=== PATIENT | male | born 1945 | race Caucasian/White ===

== ENCOUNTER → 2016-06-16 | Outpatient (CLI) | payer OTHER ==
[~2016-06-16] MED LIST: ACET325T96 PO; AMOX875T PO; ATOR-54 PO; CEPH500C2 PO; CLX/20 PO; CMD4 PO; ENOX40IN SQ; GLIM1TAB2 PO; HYDR12.55 PO; HYDR25TA4 PO; HYDR25TA5 PO; LEVO100T PO; LEVO112T2 PO; LEVO125T72 PO; LISI40TA PO; LPT/40 PO; LSN40 PO; METF-384 PO; NRV/10 PO; OXYC-57 PO; PRED20TA PO; SIMV-151 PO; TAMS0.4C38 PO; VALA1TAB2 PO; WARF2TAB8 PO
== END | disposition home or self-care (01) ==
LOC: C.LAB 11:29
PROVIDERS: ATTEND Internal Medicine Geriatric Medicine
DX: E03.9 Hypothyroidism, unspecified (principal); Z51.81 Encounter for therapeutic drug level monitoring; Z79.01 Long term (current) use of anticoagulants; I26.99 Other pulmonary embolism without acute cor pulmonale; I82.402 Acute embolism and thrombosis of unspecified deep veins of left lower extremity

== ENCOUNTER → 2016-08-13 | Outpatient (CLI) | payer OTHER ==
[~2016-08-13] MED LIST changes: -ATOR-54 PO; -ENOX40IN SQ; -GLIM1TAB2 PO; -HYDR25TA4 PO; -LEVO100T PO; -LEVO112T2 PO; -OXYC-57 PO; -PRED20TA PO; -SIMV-151 PO; -VALA1TAB2 PO
[2016-08-13 15:46] LABS: BASO % 0.5 %; BASO ABS # 0.02 K/uL (0-0.2); COMPLETE YES; EOS % 4.1 %; LYMPH % 33.3 %; LYMPH ABS # 1.46 K/uL (1.2-3.4); MEAN CELL VOLUME 80.4 fL (80-100); MEAN CORPUSCULAR HEMOGLOBIN 28.5 pg (25-34); MEAN CORPUSCULAR HGB CONC 35.4 g/dl (32-36); MEAN PLATELET VOLUME 10.8 fL (7.4-10.4); MONO % 10.3 %; NEUT % 51.8 %; PLATELET COUNT 131 K/uL (130-400); RED BLOOD COUNT 4.85 M/uL (4.7-6.1); WHITE BLOOD COUNT 4.39 K/uL (4.8-10.8)
[2016-08-13 16:04] LABS: ALB/GLOB RATIO 1.3 (0.9-2); ALT/SGPT 22 U/L (12-78); AST/SGOT 13 U/L (15-37); BLOOD UREA NITROGEN 14 mg/dl (7-18); CALCIUM 8.5 mg/dl (8.5-10.1); CARBON DIOXIDE 30 mmol/L (21-32); CHLORIDE 105 mmol/L (98-107); GLUCOSE 189 mg/dl (70-99); SODIUM 143 mmol/L (136-145)
[2016-08-13 16:15] LABS: ALKALINE PHOSPHATASE 80 U/L (45-117); CHOLESTEROL 111 mg/dl (0-200); CHOLESTEROL/HDL RATIO 3.6; HDL CHOLESTEROL 31 mg/dl; LDL CHOLESTEROL CALCULATED 29 mg/dl; TRIGLYCERIDES 254 mg/dl (0-150); VERY LOW DENSITY LIPOPROT CALC 51 mg/dl
[2016-08-14 06:06] LABS: ESTIMATED AVERAGE GLUCOSE 157 mg/dl; HA1C FLAG Normal (Normal)
--- NOTE | 2016-08-19 14:13 | CODING QUERY MEDICAL NECESSITY ---
SUPPORTING DIAGNOSIS NEEDED A supporting diagnosis is required for the test/procedure performed on this patient in order for us to be reimbursed by the patient's insurance. Please provide a supporting diagnosis for the following test/procedure listed below next to the test name along with your signature. *If there is no additional diagnosis for this patient that would support the following test/procedure please document that below next to the test/procedure. Test(s)/Procedure(s) that require a supporting diagnosis: * GLYCATED HEMOGLOBIN DIAGNOSIS: * DOS: 08/13/16 Provider Signature: Date: Thank you Keshia Ramirez Health Information Management Once completed, please kindly fax back to [phone] For questions please call [phone]
== END | disposition home or self-care (01) ==
LOC: C.LAB 14:17
PROVIDERS: ATTEND Internal Medicine Geriatric Medicine
DX: I10 Essential (primary) hypertension (principal); E78.5 Hyperlipidemia, unspecified; E03.9 Hypothyroidism, unspecified; D46.9 Myelodysplastic syndrome, unspecified; Z79.01 Long term (current) use of anticoagulants; E11.9 Type 2 diabetes mellitus without complications

== ENCOUNTER 2016-10-06 22:36 | Inpatient (IN) | payer OTHER ==
[~2016-10-06] VITALS: Ht 172.7 cm; Wt 109.0 kg
[~2016-10-06 22:36] MED LIST changes: -AMOX875T PO; -CEPH500C2 PO; -HYDR25TA5 PO; -LISI40TA PO; -TAMS0.4C38 PO
[2016-10-06] MEDS ORDERED: ACETAMINOPHEN 500 MG TAB PO STA (22:56)
--- NOTE | 2016-10-06 22:57 | EMERGENCY ROOM VISIT NOTE ---
History Report prepared by Nicky: Calos Carroll Under the Supervision of: Dr. Shayan Herrera D.O. First contact with patient: 22:49 Chief Complaint: BACK PAIN Stated Complaint: SEVERE BACK PAIN, CHILLS, VOMITING, UNSTEADY History of Present Illness The patient is a 70 year old male who presents to the Emergency Room with complaints of lower back pain that began this evening. He rates his pain a 5/10 in severity. He came home from the ball game at this time when he began to shake. He then started to experience lower back pain that was radiating down his bilateral legs. He had four episodes of emesis with multiple episodes of diarrhea. He is also experiencing chills and a fever. He denies any abdominal pain or abnormal urinary symptoms. His blood sugar is 185. He has never had any infections or pneumonia in the past. He denies any sick contacts as well. Source of History: patient Onset: this evening Position: back (lower) Symptom Intensity: 5/10 Quality: sharp Timing: constant Associated Symptoms: + chills, + diarrhea, + fevers, + vomiting, No abdominal pain Note: He is experiencing shakiness. Review of Systems See HPI for pertinent positives and negatives. A total of ten systems were reviewed and were otherwise negative. Past Medical & Surgical Medical Problems: (1) HTN (hypertension) (2) Kidney stones (3) Leukopenia (4) Thrombocytopenia Family History Diabetes mellitus Heart disease Hypertension Kidney disease Kidney stones Social History Smoking Status: Former Smoker Marital Status: Housing Status: lives with family Occupation Status: retired Current/Historical Medications Scheduled Acetaminophen Tab (Tylenol), 650 MG PO DAILY Amlodipine Besylate (Amlodipine Besylate), 10 MG PO QPM Atorvastatin (Lipitor), 40 MG PO HS Citalopram (Citalopram Hydrobromide), 20 MG PO QPM Hydrochlorothiazide (Hydrochlorothiazide), 1 TAB PO BID Levothyroxine Sodium (Synthroid), 125 MCG PO DAILY Lisinopril (Lisinopril), 40 MG PO QPM Metformin Hcl (Glucophage), 1,000 MG PO BID Warfarin Sod (Coumadin), 4 MG PO 6XWK Warfarin Sod (Jantoven), 2 MG PO WK Allergies Coded Allergies: Etodolac (Verified Allergy, Intermediate, HAND SWELLING, 10/06/16) Physical Exam Vital Signs Date Time Temp Pulse Resp B/P Pulse Ox O2 Delivery O2 Flow Rate FiO2 10/07/16 02:22 104 16 102/56 93 Room Air 10/07/16 00:41 107 16 103/67 98 Room Air 10/06/16 23:24 103 10/06/16 23:21 96 Room Air 10/06/16 22:46 37.8 108 20 117/60 91 Room Air Physical Exam GENERAL: Awake, alert, well-appearing, in no distress HENT: Normocephalic, atraumatic. Oropharynx unremarkable. EYES: Normal conjunctiva. Sclera non-icteric. NECK: Supple. No nuchal rigidity. FROM. No JVD. RESPIRATORY: Clear to auscultation. CARDIAC: Regular rate, normal rhythm. Extremities warm and well perfused. Pulses equal. ABDOMEN: Soft, non-distended. No tenderness to palpation. No rebound or guarding. No masses. RECTAL: Deferred. MUSCULOSKELETAL: Chest examination reveals no tenderness. The back is symmetrical on inspection without obvious abnormality. There is mild right lower back tenderness to palpation. No joint edema. LOWER EXTREMITIES: Calves are equal size bilaterally and non-tender. No edema. No discoloration. NEURO: Normal sensorium. No sensory or motor deficits noted. SKIN: No rash or jaundice noted. Medical Decision & Procedures ER Provider Diagnostic Interpretation: Radiology results are stated below per my review and radiologist interpretation: CHEST X-RAY: Negative for infiltrate As interpreted by me. CT ABDOMEN & PELVIS: Multilevel degenerative changes of the spine, including posterior disc bulges and facet arthropathy causing severe bilateral L4-L5 and right L5-S1 foraminal stenosis. Moderate to severe left L5-S1 foraminal and L3-L4 canal stenosis. Bilateral fat-containing indirect inguinal hernias. Enlarged prostate. Layering hyperdense material in the gallbladder, likely representing sludge or small stones. Spleen is mildly enlarged. Small sliding hiatal hernia. Moderate perinephric stranding bilaterally, nonspecific. Nonobstructing renal stones. Coronary artery calcifications. 6 mm nodule right lower lobe, stable from 11/01/12, consistent with a benign lesion. Radiologist: Gucci Rich MD Laboratory Results 10/06/16 23:25 Red Blood Count 5.03, Mean Corpuscular Volume 81.7, Mean Corpuscular Hemoglobin 29.0, Mean Corpuscular Hemoglobin Concent 35.5, Mean Platelet Volume 10.8, Neutrophils (%) (Auto) 90.2, Lymphocytes (%) (Auto) 4.5, Monocytes (%) (Auto) 4.8, Eosinophils (%) (Auto) 0.2, Basophils (%) (Auto) 0.1, Neutrophils # (Auto) 10.94, Lymphocytes # (Auto) 0.55, Monocytes # (Auto) 0.58, Eosinophils # (Auto) 0.02, Basophils # (Auto) 0.01 10/06/16 23:25 Test 10/06/16 23:00 10/06/16 23:25 10/06/16 23:48 Urine Color YELLOW Urine Appearance CLEAR (CLEAR) Urine pH 5.0 (4.5-7.5) Urine Specific [place] 1.016 (1.000-1.030) Urine Protein NEG (NEG) Urine Glucose (UA) NEG (NEG) Urine Ketones NEG (NEG) Urine Occult Blood NEG (NEG) Urine Nitrite NEG (NEG) Urine Bilirubin NEG (NEG) Urine Urobilinogen NEG (NEG) Urine Leukocyte Esterase NEG (NEG) White Blood Count 12.13 K/uL (4.8-10.8) Red Blood Count 5.03 M/uL (4.7-6.1) Hemoglobin 14.6 g/dL (14.0-18.0) Hematocrit 41.1 % (42-52) Mean Corpuscular Volume 81.7 fL (80-100) Mean Corpuscular Hemoglobin 29.0 pg (25-34) Mean Corpuscular Hemoglobin Concent 35.5 g/dl (32-36) Platelet Count 91 K/uL (130-400) Mean Platelet Volume 10.8 fL (7.4-10.4) Neutrophils (%) (Auto) 90.2 % Lymphocytes (%) (Auto) 4.5 % Monocytes (%) (Auto) 4.8 % Eosinophils (%) (Auto) 0.2 % Basophils (%) (Auto) 0.1 % Neutrophils # (Auto) 10.94 K/uL (1.4-6.5) Lymphocytes # (Auto) 0.55 K/uL (1.2-3.4) Monocytes # (Auto) 0.58 K/uL (0.11-0.59) Eosinophils # (Auto) 0.02 K/uL (0-0.5) Basophils # (Auto) 0.01 K/uL (0-0.2) RDW Standard Deviation 40.6 fL (36.4-46.3) RDW Coefficient of Variation 13.5 % (11.5-14.5) Immature Granulocyte % (Auto) 0.2 % Immature Granulocyte # (Auto) 0.03 K/uL (0.00-0.02) Platelet Estimate DECREASED Prothrombin Time 26.8 SECONDS (9.0-12.0) Prothromb Time International Ratio 2.4 (0.9-1.1) Activated Partial Thromboplast Time 29.9 SECONDS (21.0-31.0) Partial Thromboplastin Ratio 1.2 Anion Gap 8.0 mmol/L (3-11) Est Creatinine Clear Calc Drug Dose 59.6 ml/min Estimated GFR () 59.0 Estimated GFR (Non- 50.9 BUN/Creatinine Ratio 13.4 (10-20) Calcium Level 9.0 mg/dl (8.5-10.1) Total Bilirubin 0.8 mg/dl (0.2-1) Direct Bilirubin 0.2 mg/dl (0-0.2) Aspartate Amino Transf (AST/SGOT) 11 U/L (15-37) Alanine Aminotransferase (ALT/SGPT) 25 U/L (12-78) Alkaline Phosphatase 89 U/L (45-117) Total Protein 6.9 gm/dl (6.4-8.2) Albumin 4.0 gm/dl (3.4-5.0) Bedside Lactic Acid Venous 2.61 mmol/L (0.90-1.70) Laboratory results reviewed by me Medications Administered Medications (Trade) Dose Ordered Sig/Ashliegh Route Start Time Stop Time Status Last Admin Dose Admin Acetaminophen 1000 mg 1,000 mg NOW STAT PO 10/06/16 22:56 10/06/16 22:58 DC 10/06/16 23:11 1,000 MG Sodium Chloride (Nss 1000ml) 1,000 ml @ 999 mls/hr Q1H1M STAT IV 10/07/16 00:07 10/07/16 01:07 DC 10/07/16 00:07 999 MLS/HR Piperacillin Sod/ Tazobactam Sod (Zosyn Iv) 4.5 gm NOW STAT IV 10/07/16 00:20 10/07/16 00:22 DC 10/07/16 00:20 4.5 GM Vancomycin HCl (Vancomycin 1gm/ 270ml Nss) 1 gm STK-MED ONCE .ROUTE 10/07/16 01:09 10/07/16 01:10 DC 10/07/16 01:07 1 GM ECG Indication: back/shoulder pain Rate (beats per minute): 101 Rhythm: sinus tachycardia Findings: RBBB, left axis deviation, other (Left anterior leonel block) ED Course 2248: The patient was evaluated in room B10. A complete history and physical exam was performed. 2256: Ordered Tylenol Tab 1000 PO 0007: Ordered Sodium Chloride 1000 ml @ 999 mls/hr IV 0020: Ordered Vancomycin HCl 270 ml @ 125 mls/hr IV, Zosyn Iv 4.5 mg IV 0044: I was informed that the patient is experiencing pain in his right leg. He also feels like his right calf is warmer than his left calf. He has had a DVT before. 0100: After re-examination, the patient has right lower leg erythema to the turner , with right calf tenderness and lateral turner tenderness. 0109: Ordered Vancomycin HCl 1 gm .ROUTE 0225: Upon reexamination, the patient was resting. I discussed the test results and treatment plan with him. The patient will be evaluated by Dr. Enrique HOUSTON, for further management. Medical Decision Differential diagnoses include but are not limited to; UTI, early sepsis, pneumonia, viral illness, and gastroenteritis. Patient was started on IV fluids, patient was started on Zosyn and vancomycin. Patient may have an early cellulitis of the right lower extremity. Patient's CAT scan was appreciated. This case was discussed with the hospitalist for admission at 2:30 AM. At 2:30 AM the patient is not in septic shock Consults Time Called: 013 Consulting Physician: Dr. Enrique HOUSTON Returned Call: [phone] He will be evaluating the patient for further management. Impression Primary Impression: SIRS (systemic inflammatory response syndrome) Additional Impression: Cellulitis Scribe Attestation The scribe's documentation has been prepared under my direction and personally reviewed by me in its entirety. I confirm that the note above accurately reflects all work, treatment, procedures, and medical decision making performed by me. Departure Information Dispostion Being Evaluated By Hospitalist Clay Womack,M.D. (PCP) Patient Instructions My [facility] Problem Qualifiers Additional Impression: Cellulitis Site of cellulitis: extremity Site of cellulitis of extremity: lower extremity Laterality: right Qualified Codes: L03.115 - Cellulitis of right lower limb
[2016-10-06 23:32] LABS: URINE APPEARANCE CLEAR (CLEAR); URINE BILIRUBIN NEG (NEG); URINE COLOR YELLOW; URINE NITRITE NEG (NEG); URINE SPECIFIC GRAVITY 1.016 (1.000-1.030); UROBILINOGEN NEG (NEG)
[2016-10-06 23:37] LABS: MANUAL MICROSCOPIC REQUIRED? NO; REVIEW REQ? NO
[2016-10-07] MEDS ORDERED: SODIUM CHLORIDE 0.9% 1000ML 1,000 ML IV STA (00:07)
[2016-10-07 00:08] LABS: HEMATOCRIT 41.1 % (42-52); MEAN CELL VOLUME 81.7 fL (80-100); MEAN CORPUSCULAR HGB CONC 35.5 g/dl (32-36); RED BLOOD COUNT 5.03 M/uL (4.7-6.1); WHITE BLOOD COUNT 12.13 K/uL (4.8-10.8)
[2016-10-07] MEDS ORDERED: VANCOMYCIN INJ 1,000 MG in SODIUM CHLORIDE 0.9% 250ML 250 ML IV STA (00:20)
[2016-10-07] MEDS ORDERED: PIPERACILLIN/TAZOBACTAM 4.5 GM/100ML D5W IV STA (00:20)
[2016-10-07 00:24] LABS: BUN/CREATININE RATIO 13.4 (10-20); CREATININE 1.4 mg/dl (0.60-1.40); POTASSIUM 3.1 mmol/L (3.5-5.1)
[2016-10-07 00:32] LABS: BASO % 0.1 %; BASO ABS # 0.01 K/uL (0-0.2); COMPLETE YES; EOS % 0.2 %; IG% 0.2 %; LYMPH % 4.5 %; LYMPH ABS # 0.55 K/uL (1.2-3.4); MEAN PLATELET VOLUME 10.8 fL (7.4-10.4); MONO % 4.8 %; NEUT % 90.2 %; PLATELET COUNT 91 K/uL (130-400); PLT ESTIMATE DECREASED
[2016-10-07] MEDS ORDERED: VANCOMYCIN 1GM/270ML NSS ONE (01:09)
[2016-10-07 01:22] LABS: INR 2.4 (0.9-1.1); PARTIAL THROMBOPLASTIN RATIO 1.2; PROTHROMBIN TIME (PATIENT) 26.8 SECONDS (9.0-12.0)
[2016-10-07] MEDS ORDERED: ALUMINUM/MAGNESIUM/SIMETH (MAALOX MAX) 30 ML UDC PO PRN (02:45)
[2016-10-07] MEDS ORDERED: ONDANSETRON INJ 2 MG/ML 2 ML VIAL IV PRN (02:45)
[2016-10-07] MEDS ORDERED: POLYETHYLENE (MIRALAX) 17 GM PACK PO PRN (02:45)
[2016-10-07] MEDS ORDERED: ZOLPIDEM TARTRATE 5 MG TAB PO PRN (02:45)
[2016-10-07] MEDS ORDERED: MAGNESIUM HYDROXIDE SUSP 30 ML UDC PO PRN (02:45)
--- NOTE | 2016-10-07 03:28 | History and Physical ---
History & Physical Date & Time of Service: Oct 07, 2016 at 03:08 Chief Complaint: Severe Back Pain, Chills, Vomiting, Unsteady Primary Care Physician: Clay Menendez M.D. History of Present Illness Source: patient, family 70 y/o M Hx DVT/PE, HTN, HPL, DM 2 - was at a baseball game earlier and in his normal state of health. A few hours later he had acute onset of fevers/rigors, back pain, RLE pain and nausea with one episode of vomiting and diarrhea. He presented to the hospital for evaluation where a fever was confirmed. A CT abdomen was obtained in addition to a CXR and UA, none of which elucidated a clear source of infection. He does have a mildly erythematous area of skin on his R turner which is very painful to palpation. The pt also states that he had a LLE cellulitis which presented in a similar manner 5 years ago leading to a nine day hospital stay. His vomiting and diarrhea have not recurred so that his symptoms are most likely due to an early cellulitis. He denies CP, SOB/cough, dysuria. Initial labs reveal an elevated lactic acid, mild leukocytosis, stable thrombocytopenia and hypoK. Past Medical/Surgical History Medical Problems: (1) HTN (hypertension) Status: Chronic (2) Kidney stones Status: Chronic (3) Leukopenia Status: Chronic (4) Thrombocytopenia Status: Chronic 5) DM 2 6) Obese 7) Hyperlipidemia 8) History of DVT and PE 2015 Surgery L shoulder arthroscopy 2016 Family History Diabetes mellitus Heart disease Hypertension Kidney disease Kidney stones Social History Smoking Status: Former Smoker Marital Status: Occupational Status: retired Immunizations History of Influenza Vaccine: Yes Influenza Vaccine Date: Feb 06, 2010 History of Tetanus Vaccine?: Yes History of Pneumococcal: Unknown History of Hepatitis B Vaccine: No Multi-Drug Resistant Organisms History of MDRO: No Allergies Coded Allergies: Etodolac (Verified Allergy, Intermediate, HAND SWELLING, 10/06/16) Home Medications Scheduled Acetaminophen Tab (Tylenol), 650 MG PO DAILY Amlodipine Besylate (Amlodipine Besylate), 10 MG PO QPM Atorvastatin (Lipitor), 40 MG PO HS Citalopram (Citalopram Hydrobromide), 20 MG PO QPM Hydrochlorothiazide (Hydrochlorothiazide), 1 TAB PO BID Levothyroxine Sodium (Synthroid), 125 MCG PO DAILY Lisinopril (Lisinopril), 40 MG PO QPM Metformin Hcl (Glucophage), 1,000 MG PO BID Warfarin Sod (Coumadin), 4 MG PO 6XWK Warfarin Sod (Jantoven), 2 MG PO WK Review of Systems Constitutional: + chills, + fever, + sweats Eyes: No eye pain, No worsening of vision ENT: No hearing loss, No nasal symptoms, No unusual epistaxis Respiratory: No cough, No sputum, No wheezing Cardiovascular: No PND, No chest pain, No orthopnea Abdomen: + diarrhea, + nausea, + vomiting, No constipation, No pain Musculoskeletal: + problem reported (Severe lower back pain during rigors - pain in RLE as above), No joint pain Genitourinary - Male: No dysuria, No hematuria, No urinary frequency, No urinary urgency Neurologic: No memory loss, No paralysis, No weakness Psychiatric: No depression symptoms Endocrine: No fatigue Hematologic / Lymphatic: No abnormal bleeding/bruising Integumentary: + rash (mild erythema on ant turner) Allergic / Immunologic: No environmental allergies Physical Exam Vital Signs Date Time Temp Pulse Resp B/P Pulse Ox O2 Delivery O2 Flow Rate FiO2 10/07/16 03:06 105 10/07/16 02:22 104 16 102/56 93 Room Air 10/07/16 00:41 107 16 103/67 98 Room Air 10/06/16 23:24 103 10/06/16 23:21 96 Room Air 10/06/16 22:46 37.8 108 20 117/60 91 Room Air General Appearance: + pertinent finding (Overweight elderly male in no distress ) Head: normocephalic, atraumatic Eyes: normal inspection ENT: normal ENT inspection, hearing grossly normal, TMs normal, pharynx normal Neck: supple, no JVD Respiratory/Chest: chest non-tender, lungs clear, normal breath sounds, no respiratory distress, no accessory muscle use Cardiovascular: regular rate, rhythm, no edema, no gallop, no JVD Abdomen/GI: normal bowel sounds, non tender, soft Back: normal inspection, no CVA tenderness, no muscle spasm, normal range of motion Extremities/Musculoskelatal: + pertinent finding (there is erythema, warmeth and tenderness to palpationof the R turner) Neurologic/Psych: 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 as tested, no motor/sensory deficits, alert, normal mood/affect, normal reflexes, oriented x 3 Skin: + pertinent finding (there is erythema, warmeth and tenderness to palpationof the R turner) Diagnostics Laboratory Results Results Past 24 Hours Test 10/06/16 23:00 10/06/16 23:25 10/06/16 23:48 Range/Units Urine Color YELLOW Urine Appearance CLEAR CLEAR Urine pH 5.0 4.5-7.5 Urine Specific [place] 1.016 1.000-1.030 Urine Protein NEG NEG Urine Glucose (UA) NEG NEG Urine Ketones NEG NEG Urine Occult Blood NEG NEG Urine Nitrite NEG NEG Urine Bilirubin NEG NEG Urine Urobilinogen NEG NEG Urine Leukocyte Esterase NEG NEG White Blood Count 12.13 4.8-10.8 K/uL Red Blood Count 5.03 4.7-6.1 M/uL Hemoglobin 14.6 14.0-18.0 g/dL Hematocrit 41.1 42-52 % Mean Corpuscular Volume 81.7 80-100 fL Mean Corpuscular Hemoglobin 29.0 25-34 pg Mean Corpuscular Hemoglobin Concent 35.5 32-36 g/dl Platelet Count 91 130-400 K/uL Mean Platelet Volume 10.8 7.4-10.4 fL Neutrophils (%) (Auto) 90.2 % Lymphocytes (%) (Auto) 4.5 % Monocytes (%) (Auto) 4.8 % Eosinophils (%) (Auto) 0.2 % Basophils (%) (Auto) 0.1 % Neutrophils # (Auto) 10.94 1.4-6.5 K/uL Lymphocytes # (Auto) 0.55 1.2-3.4 K/uL Monocytes # (Auto) 0.58 0.11-0.59 K/uL Eosinophils # (Auto) 0.02 0-0.5 K/uL Basophils # (Auto) 0.01 0-0.2 K/uL RDW Standard Deviation 40.6 36.4-46.3 fL RDW Coefficient of Variation 13.5 11.5-14.5 % Immature Granulocyte % (Auto) 0.2 % Immature Granulocyte # (Auto) 0.03 0.00-0.02 K/uL Platelet Estimate DECREASED Prothrombin Time 26.8 9.0-12.0 SECONDS Prothromb Time International Ratio 2.4 0.9-1.1 Activated Partial Thromboplast Time 29.9 21.0-31.0 SECONDS Partial Thromboplastin Ratio 1.2 Sodium Level 141 136-145 mmol/L Potassium Level 3.1 3.5-5.1 mmol/L Chloride Level 104 98-107 mmol/L Carbon Dioxide Level 29 21-32 mmol/L Anion Gap 8.0 3-11 mmol/L Blood Urea Nitrogen 19 7-18 mg/dl Creatinine 1.40 0.60-1.40 mg/dl Est Creatinine Clear Calc Drug Dose 59.6 ml/min Estimated GFR () 59.0 Estimated GFR (Non- 50.9 BUN/Creatinine Ratio 13.4 10-20 Random Glucose 177 70-99 mg/dl Calcium Level 9.0 8.5-10.1 mg/dl Total Bilirubin 0.8 0.2-1 mg/dl Direct Bilirubin 0.2 0-0.2 mg/dl Aspartate Amino Transf (AST/SGOT) 11 15-37 U/L Alanine Aminotransferase (ALT/SGPT) 25 12-78 U/L Alkaline Phosphatase 89 45-117 U/L Total Protein 6.9 6.4-8.2 gm/dl Albumin 4.0 3.4-5.0 gm/dl Bedside Lactic Acid Venous 2.61 0.90-1.70 mmol/L Microbiology Results 10/06/16 Blood Culture, Received Pending 10/06/16 Blood Culture, Received Pending Diagnostic Radiology CT abdomen - b/l mild perinephric stranding, enlarged prostate, stable 6mm lung nodule Impression Assessment and Plan 70 y/o M Hx DVT/PE, HTN, HPL, DM 2 - was at a baseball game earlier and in his normal state of health. A few hours later he had acute onset of fevers/rigors, back pain, RLE pain and nausea with one episode of vomiting and diarrhea. He presented to the hospital for evaluation where a fever was confirmed. A CT abdomen was obtained in addition to a CXR and UA, none of which elucidated a clear source of infection. He does have a mildly erythematous area of skin on his R truner which is very painful to palpation. The pt also states that he had a LLE cellulitis which presented in a similar manner 5 years ago leading to a nine day hospital stay. His vomiting and diarrhea have not recurred so that his symptoms are most likely due to an early cellulitis. He denies CP, SOB/cough, dysuria. Initial labs reveal an elevated lactic acid, mild leukocytosis, stable thrombocytopenia and hypoK. 1) Sepsis - likely skin source - Pt placed on Unasyn and Vanc pending culture results. IVF and pain control provided. 2) N/V - likely due to acute infection - if recurs, gastroenteritis should be considered as a source of infection. 3) DM - placed on sliding scale 4) HTN - HCTZ held due to dehydration - cont SUSHIL and Norvasc 5) Hypothyroidism - cont Synthroid 6) History of DVT/PE - INR therapeutic on Coumadin - continue 7) HypoK - replaced Full code - Coumadin prophylaxis Total tiime for this admit including review of labs, meds, imaging, records - discussion with ER MD and pt/family - 38 min Level of Care Med/Surg Resuscitation Status FULL RESUSCITATION VTE Prophylaxis VTE Risk Assessment Done? Y/N: Yes Risk Level: Moderate Given or contraindicated: Warfarin (Coumadin)
[2016-10-07] MEDS ORDERED: GLUCAGON FOR INJ 1 MG VIAL SQ PRN (04:00)
[2016-10-07] MEDS ORDERED: DEXTROSE 50% 50 ML SYR IV PRN (04:00)
[2016-10-07] MEDS ORDERED: POTASSIUM CHLORIDE 20 MEQ TABCR PO ONE (04:00)
[2016-10-07] MEDS ORDERED: GLUCOSE 10 TABS/TUBE PO PRN (04:00)
[2016-10-07] MEDS ORDERED: GLUCOSE 40% GEL 15 GM TUBE PO PRN (04:00)
[2016-10-07] MEDS ORDERED: MAGNESIUM SULFATE 1GM / D5W 1 GM in PREMIXED IN D5W 100 ML IV ONE (04:00)
[2016-10-07] MEDS: NSS + 20MEQ KCL 1000ML 1,000 ML IV SCH ×2 (04:30→12:23)
[2016-10-07] MEDS: ACETAMINOPHEN 325 MG TAB PO PRN ×3 (04:36→23:28)
[2016-10-07 04:50] VITALS: BP 132/67; PULSE 106; TEMP 37.2; O2SAT 93; Ht 172.7 cm; Wt 109.0 kg
[2016-10-07] MEDS ORDERED: VANCOMYCIN INJ 1,350 MG in SODIUM CHLORIDE 0.9% 250ML 250 ML IV ONE (05:30)
[2016-10-07] MEDS ORDERED: VANCOMYCIN CONSULT ACTIVE PRN (05:30)
[2016-10-07] MEDS ORDERED: AMPICILLIN/SULBACTAM CONSULT ACTIVE PRN ×2 (05:30)
[2016-10-07] MEDS: LEVOTHYROXINE 125 MCG TAB PO SCH (05:47)
[2016-10-07] MEDS: AMPICILLIN/SULBACTAM SOD INJ 3,000 MG in SODIUM CHLORIDE 0.9% 100ML 100 ML IV SCH ×3 (06:16→17:44)
--- NOTE | 2016-10-07 06:38 | DIAGNOSTIC IMAGING REPORT ---
CHEST ONE VIEW PORTABLE CLINICAL HISTORY: Fever and sepsis. Back pain. COMPARISON STUDY: 06/12/2015 FINDINGS: The heart is borderline enlarged. There is no failure. There is no focal pulmonary consolidation. There are no pleural effusions. There is a stable area of linear scar/atelectasis at the left lung base.[ IMPRESSION: No active disease in the chest. Electronically signed by: Gerson Cuevas M.D. 10/07/2016 6:36 AM Dictated Date/Time: 10/07/2016 6:35 AM
--- NOTE | 2016-10-07 07:35 | DIAGNOSTIC IMAGING REPORT ---
CT SCAN OF THE ABDOMEN AND PELVIS WITHOUT IV CONTRAST CLINICAL HISTORY: Bilateral groin pain. Low back pain. COMPARISON STUDY: Abdominal CT dated 11/01/2012. TECHNIQUE: CT scan of the abdomen and pelvis is performed from the lung bases to the proximal femora. Images are reviewed in the axial, sagittal, and coronal planes. IV contrast was not administered for this examination as per the referring clinician. Note that the examination was performed in suboptimal fashion without oral and IV contrast. Automated dose control exposure was utilized. CT DOSE: 1212.16 mGy.cm FINDINGS: Lung bases: The heart is top normal in size and without pericardial effusion. The coronary arteries are densely calcified. There is a small hiatal hernia. A 6 mm right lower lobe pulmonary nodule is seen on image #16. This is unchanged from 2013. No airspace consolidation or pleural effusion is identified linear atelectasis versus scarring is noted in the lower lobes.. Liver: The unenhanced liver is enlarged, measuring 19.3 cm in length. The liver demonstrates diffusely diminished attenuation consistent with hepatic steatosis. Focal sparing is noted adjacent to gallbladder fossa. There is no intrahepatic biliary ductal dilatation. Gallbladder: Numerous layering calcified gallstones are identified within the gallbladder lumen. There is no CT evidence of acute cholecystitis. Spleen: The spleen is enlarged, measuring 14.8 cm in length. Pancreas: There is moderate glandular atrophy of the pancreas. The unenhanced pancreas is otherwise grossly unremarkable. Adrenal glands: Unremarkable. Kidneys: The unenhanced kidneys demonstrate cortical atrophy and are without hydronephrosis. There are 2 nonobstructing right renal calculi measuring up to 5 mm. A 5 mm linear calcification within the interpolar left kidney is likely contained within a cyst or calyceal diverticulum. There is no evidence of contour deforming renal mass lesion. Abdominal vasculature: The abdominal aorta is normal in course and caliber noting mild atherosclerotic calcification. Bowel: The small bowel and colon are normal in course and caliber. There are scattered colonic diverticula without CT evidence of acute diverticulitis. The appendix is well-visualized and normal. Peritoneum: There is no intraperitoneal free air or abdominal ascites. There is a small fat-containing umbilical hernia. Lymphadenopathy: None. Pelvic viscera: The prostate gland is enlarged and heterogeneous, measuring 6.3 cm in transverse diameter. Mild periprostatic stranding is noted. The bladder is normal as visualized. There are bilateral fat-containing inguinal hernias. Skeletal structures: The skeletal structures are osteopenic. There is moderate lumbosacral spondylosis. Posterior disc bulges are seen at L3-L4, L4-L5, and L5-S1. Degenerative change and partial fusion is noted in the sacroiliac joints. No lytic or blastic lesions are seen. IMPRESSION: 1. The prostate gland is enlarged and heterogeneous. There is mild periprostatic stranding. The appearance is nonspecific and not well assessed by CT. Correlate clinically for evidence of prostatitis. 2. Hepatomegaly and hepatic steatosis. 3. Cholelithiasis. 4. Splenomegaly. 5. The coronary arteries are densely calcified. Consider nonemergent cardiology assessment. 6. Nonobstructing right renal calculi. 7. A 6 mm right lower lobe pulmonary nodule is unchanged from 11/01/2012. 8. Additional findings as above. Electronically signed by: Foreign Valentin M.D. 10/07/2016 7:32 AM Dictated Date/Time: 10/07/2016 7:24 AM
[2016-10-07 08:30] VITALS: O2SAT 93
--- NOTE | 2016-10-07 08:57 | Progress Note ---
Subjective Date of Service: Oct 07, 2016. Subjective Pt evaluation today including: conversation w/ patient, physical exam, chart review, lab review, review of studies, review of inpatient medication list He reports fevers/chills after he was came home from a baseball game, sudden. Prior h/o LLE cellulitis 3-4 years ago. 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 He denies coughing, denies sick contacts, no chest pain, no sob. No abd pain, no dysuria/urinary frequency. Problem List Medical Problems: (1) Cellulitis Status: Acute (2) SIRS (systemic inflammatory response syndrome) Status: Acute Review of Systems All Other Systems: Reviewed and Negative Medications Acetaminophen (Tylenol Tab) 650 mg Q4H PRN PO Last administered on 10/07/16 04:36; Admin Dose 650 MG; Start 10/07/16 at 02:45; Stop 11/06/16 at 02:44 Al Hydrox/Mg Hydrox/Simethicone (Maalox Max Susp) 15 ml Q4H PRN PO; Start 10/07 at 02:45; Stop 11/06/16 at 02:44 Amlodipine Besylate 10 mg 10 mg QPM PO; Start 10/07/16 at 21:00; Stop 11/06/16 at 20:59 Ampicillin Sodium/ Sulbactam Sodium (Consult) 1 ea UD PRN N/A; Start 10/07/16 at 05:30; Stop 11/06/16 at 05:29 Ampicillin Sodium/ Sulbactam Sodium/ Sodium Chloride (Unasyn Inj/Nss 100ml) 108 ml @ 200 mls/hr Q6H IV Last administered on 10/07/16 06:16; Admin Dose 200 MLS /HR; Start 10/07/16 at 06:00; Stop 10/17/16 at 05:59 Atorvastatin Calcium (Lipitor Tab) 40 mg HS PO; Start 10/07/16 at 21:00; Stop at 20:59 Citalopram Hydrobromide (celeXA TAB) 20 mg QPM PO; Start 10/07/16 at 21:00; Stop 11/06/16 at 20:59 Dextrose (Dextrose 50% 50ML Syringe) 25-50ML OF 50% DW IV FOR... UD PRN IV; Start 10/07/16 at 04:00; Stop 11/06/16 at 03:59 Glucagon (Glucagon Inj) 1 mg UD PRN SQ; Start 10/07/16 at 04:00; Stop 11/06/16 at 03:59 Glucose (Glucose 40% Gel) 15-30 GRAMS 15 GRAMS... UD PRN PO; Start 10/07/16 at 04:00; Stop 11/06/16 at 03:59 Glucose (Glucose Chew Tab) 4-8 Tablets 4 Tabl... UD PRN PO; Start 10/07/16 at 04:00; Stop 11/06/16 at 03:59 Insulin Aspart (novoLOG ASPART) SLIDING SCALE G... ACHS SC; Start at 06:30; Stop 11/06/16 at 06:59 Levothyroxine Sodium (Synthroid Tab) 125 mcg DAILYBB PO Last administered on 05:47; Admin Dose 125 MCG; Start 10/07/16 at 06:30; Stop 11/06/16 at 06: 29 Lisinopril (Zestril Tab) 40 mg QPM PO; Start 10/07/16 at 21:00; Stop 11/06/16 at 20:59 Magnesium Hydroxide (Milk Of Magnesia Susp) 30 ml Q6H PRN PO; Start 10/07/16 at 02:45; Stop 11/06/16 at 02:44 Ondansetron HCl 4 mg 4 mg Q6H PRN IV; Start 10/07/16 at 02:45; Stop 11/06/16 at 02:44 Polyethylene (Miralax Powder Packet) 17 gm DAILY PRN PO; Start 10/07/16 at 02: 45; Stop 11/06/16 at 02:44 Potassium Chloride/Sodium Chloride (Nss + 20meq KCl 1000ml) 1,000 ml @ 125 mls/ hr Q8H IV Last administered on 10/07/16 04:30; Admin Dose 125 MLS/HR; Start at 04:00; Stop 10/07/16 at 19:59 Vancomycin HCl (Consult) 1 ea UD PRN N/A; Start 10/07/16 at 05:30; Stop at 05:29 Warfarin Sodium (Coumadin Tab) 4 mg DAILY@1600 PO; Start 10/07/16 at 16:00; Stop 11/06/16 at 15:59 Zolpidem Tartrate (Ambien Tab) 5 mg HSZ PRN PO; Start 10/07/16 at 02:45; Stop 11/06/16 at 02:44 Objective Vital Signs Date Time Temp Pulse Resp B/P Pulse Ox O2 Delivery O2 Flow Rate FiO2 10/07/16 04:50 37.2 106 18 132/67 93 Room Air 10/07/16 03:31 82 18 103/53 96 Room Air 10/07/16 03:06 105 10/07/16 02:22 104 16 102/56 93 Room Air 10/07/16 00:41 107 16 103/67 98 Room Air 10/06/16 23:24 103 10/06/16 23:21 96 Room Air 10/06/16 22:46 37.8 108 20 117/60 91 Room Air Physical Exam Comments: nad, aox3 anicteric, coherent s1 s2 rrr, no murmurs appreciated ctab no w/r/r abd sft nt/nd +BS trace RLE edema with mild tenderness in the calf, no erythema noted, LLE no edema Laboratory Results Last 24 Hours Test 10/06/16 23:00 10/06/16 23:25 10/06/16 23:48 10/07/16 08:10 Urine Color YELLOW Urine Appearance CLEAR Urine pH 5.0 Urine Specific Irene 1.016 Urine Protein NEG Urine Glucose (UA) NEG Urine Ketones NEG Urine Occult Blood NEG Urine Nitrite NEG Urine Bilirubin NEG Urine Urobilinogen NEG Urine Leukocyte Esterase NEG White Blood Count 12.13 K/uL Red Blood Count 5.03 M/uL Hemoglobin 14.6 g/dL Hematocrit 41.1 % Mean Corpuscular Volume 81.7 fL Mean Corpuscular Hemoglobin 29.0 pg Mean Corpuscular Hemoglobin Concent 35.5 g/dl Platelet Count 91 K/uL Mean Platelet Volume 10.8 fL Neutrophils (%) (Auto) 90.2 % Lymphocytes (%) (Auto) 4.5 % Monocytes (%) (Auto) 4.8 % Eosinophils (%) (Auto) 0.2 % Basophils (%) (Auto) 0.1 % Neutrophils # (Auto) 10.94 K/uL Lymphocytes # (Auto) 0.55 K/uL Monocytes # (Auto) 0.58 K/uL Eosinophils # (Auto) 0.02 K/uL Basophils # (Auto) 0.01 K/uL RDW Standard Deviation 40.6 fL RDW Coefficient of Variation 13.5 % Immature Granulocyte % (Auto) 0.2 % Immature Granulocyte # (Auto) 0.03 K/uL Platelet Estimate DECREASED Prothrombin Time 26.8 SECONDS Prothromb Time International Ratio 2.4 Activated Partial Thromboplast Time 29.9 SECONDS Partial Thromboplastin Ratio 1.2 Sodium Level 141 mmol/L Potassium Level 3.1 mmol/L Chloride Level 104 mmol/L Carbon Dioxide Level 29 mmol/L Anion Gap 8.0 mmol/L Blood Urea Nitrogen 19 mg/dl Creatinine 1.40 mg/dl Est Creatinine Clear Calc Drug Dose 59.6 ml/min Estimated GFR () 59.0 Estimated GFR (Non- 50.9 BUN/Creatinine Ratio 13.4 Random Glucose 177 mg/dl Calcium Level 9.0 mg/dl Total Bilirubin 0.8 mg/dl Direct Bilirubin 0.2 mg/dl Aspartate Amino Transf (AST/SGOT) 11 U/L Alanine Aminotransferase (ALT/SGPT) 25 U/L Alkaline Phosphatase 89 U/L Total Protein 6.9 gm/dl Albumin 4.0 gm/dl Bedside Lactic Acid Venous 2.61 mmol/L Bedside Glucose 198 mg/dl Assessment and Plan 1. RLE calf tenderness - likely cellulitis - clinically consistent with strep cellulitis, check mrsa swab - check venous doppler of right leg to eval for dvt - unsayn and vanco at this time - cxr and UA unremarkable for infectious process 2. T2DM - holding metformin - cont ISS for now 3. h/o DVT/PE - coumadin per home regimen - monitor INR in setting of abx 4. HTN - acceptable BP readings - cont lisinopril and amlodipine 5. hypothyroid - cont synthroid home dose
[2016-10-07] MEDS: INSULIN ASPART 100 UNITS/ML 3 ML PEN SC SCH ×4 (09:19→20:39)
[2016-10-07 10:30] LABS: HEMATOCRIT 39.1 % (42-52); MEAN CELL VOLUME 81.3 fL (80-100); MEAN CORPUSCULAR HEMOGLOBIN 27.4 pg (25-34); MEAN CORPUSCULAR HGB CONC 33.8 g/dl (32-36); RED BLOOD COUNT 4.81 M/uL (4.7-6.1); WHITE BLOOD COUNT 18.53 K/uL (4.8-10.8)
[2016-10-07 10:31] LABS: MEAN PLATELET VOLUME 10.5 fL (7.4-10.4); PLATELET COUNT 98 K/uL (130-400)
[2016-10-07 10:56] LABS: BUN/CREATININE RATIO 13.6 (10-20); CALCIUM 8.4 mg/dl (8.5-10.1); CREATININE 1.5 mg/dl (0.60-1.40); POTASSIUM 4.1 mmol/L (3.5-5.1)
--- NOTE | 2016-10-07 13:59 | DIAGNOSTIC IMAGING REPORT ---
RIGHT LOWER EXTREMITY VENOUS DOPPLER CLINICAL HISTORY: Right calf pain. History of deep venous thrombus. COMPARISON STUDY: Bilateral lower extremity venous Doppler January 03, 2015. TECHNIQUE: Sonography of the deep venous system of the right lower extremity was performed. Compression and augmentation were evaluated. FINDINGS: The common femoral, superficial femoral and popliteal veins were compressible. Augmentation was normal. Flow was shown within the deep calf vessels although the calf vessels were suboptimally assessed due to suboptimal penetration. IMPRESSION: No evidence of deep venous thrombus within the right lower extremity. Electronically signed by: Deni Butler M.D. 10/07/2016 1:57 PM Dictated Date/Time: 10/07/2016 1:56 PM
[2016-10-07 14:21] LABS: INR 2.3 (0.9-1.1)
[2016-10-07 15:24] VITALS: BP 115/73; PULSE 76; TEMP 37.1; O2SAT 94
[2016-10-07 16:00] VITALS: O2SAT 95
[2016-10-07] MEDS: WARFARIN SOD 4 MG TAB PO SCH (16:38)
--- NOTE | 2016-10-07 17:35 | Pharmacy Progress Note ---
Pharmacy Antibiotic Consult Date of Service: Oct 07, 2016. Pharmacy Dosing Scope Pharmacy is consulted to initiate Unasyn and vancomycin IV dosing therapy, order appropriate labs and adjust drug dose/frequency. Subjective The patient is a 70 year old male admitted on Oct 07, 2016 at 02:51 with right calf cellulitis. Objective Height (Feet): 5 Height (Inches): 8.00 Weight (Kilograms): 109.000 Lab Results (24hrs): Laboratory Tests Test 10/06/16 23:25 10/07/16 10:09 BUN/Creatinine Ratio 13.4 13.6 Blood Urea Nitrogen 19 mg/dl 20 mg/dl Creatinine 1.40 mg/dl 1.50 mg/dl White Blood Count 12.13 K/uL 18.53 K/uL Red Blood Count 5.03 M/uL Hemoglobin 14.6 g/dL Hematocrit 41.1 % Mean Corpuscular Volume 81.7 fL Mean Corpuscular Hemoglobin 29.0 pg Mean Corpuscular Hemoglobin Concent 35.5 g/dl Platelet Count 91 K/uL Mean Platelet Volume 10.8 fL Neutrophils (%) (Auto) 90.2 % Lymphocytes (%) (Auto) 4.5 % Monocytes (%) (Auto) 4.8 % Eosinophils (%) (Auto) 0.2 % Basophils (%) (Auto) 0.1 % Neutrophils # (Auto) 10.94 K/uL Lymphocytes # (Auto) 0.55 K/uL Monocytes # (Auto) 0.58 K/uL Eosinophils # (Auto) 0.02 K/uL Basophils # (Auto) 0.01 K/uL Micro Results: Blood cx X 2, gm pos cocci in one cx Recent Pertinent Medications Zosyn 4.5gm X 1 in ER Assessment & Plan Vancomycin: Modified Loading dose: 1000 mg IV X 1 dose in ER plus 1350mg X 1 dose on admission (combined, ~21mg/kg) then: 1500 mg IV every 16 hours. Goal peak level estimate: between 35 - 40 mcg/mL. Goal trough level estimate: between 15 - 20 mcg/mL. Peak and trough or random level has been ordered for: 10/09 prior to 0400 dose. Unasyn 3gm IV q 6 hrs. No dosage adjustment necessary for CrCl > 30ml/min. Pharmacy will continue to follow and will adjust dose/frequency as necessary. Thank you
[2016-10-07 20:30] VITALS: BP 112/60; PULSE 80; TEMP 37.7; O2SAT 93
[2016-10-07] MEDS: AMLODIPINE BESYLATE 5 MG TAB PO SCH (20:36)
[2016-10-07] MEDS: ATORVASTATIN 40 MG TAB PO SCH (20:36)
[2016-10-07] MEDS: CITALOPRAM 20 MG TAB PO SCH (20:36)
[2016-10-07] MEDS ORDERED: LISINOPRIL 40 MG TAB PO SCH (21:00)
[2016-10-07] MEDS: VANCOMYCIN INJ 1,500 MG in SODIUM CHLORIDE 0.9% 500ML 500 ML IV SCH (21:36)
[2016-10-07 23:00] VITALS: BP 119/70; PULSE 85; TEMP 38.2; O2SAT 92
[2016-10-08] MEDS: AMPICILLIN/SULBACTAM SOD INJ 3,000 MG in SODIUM CHLORIDE 0.9% 100ML 100 ML IV SCH ×5 (00:16→23:47)
[2016-10-08 00:31] VITALS: TEMP 37.5
[2016-10-08 06:16] LABS: HEMATOCRIT 34.7 % (42-52); MEAN CORPUSCULAR HEMOGLOBIN 28.9 pg (25-34); MEAN CORPUSCULAR HGB CONC 34.9 g/dl (32-36); RED BLOOD COUNT 4.18 M/uL (4.7-6.1); WHITE BLOOD COUNT 10.96 K/uL (4.8-10.8)
[2016-10-08 06:17] LABS: BASO % 0.2 %; BASO ABS # 0.02 K/uL (0-0.2); COMPLETE YES; EOS % 0.4 %; IG% 0.4 %; LYMPH % 9.2 %; LYMPH ABS # 1.01 K/uL (1.2-3.4); MEAN PLATELET VOLUME 10.8 fL (7.4-10.4); MONO % 6.4 %; NEUT % 83.4 %; PLATELET COUNT 92 K/uL (130-400)
[2016-10-08 06:21] LABS: BUN/CREATININE RATIO 15.7 (10-20); CALCIUM 8.4 mg/dl (8.5-10.1); CREATININE 1.1 mg/dl (0.60-1.40); POTASSIUM 3.8 mmol/L (3.5-5.1)
[2016-10-08] MEDS: LEVOTHYROXINE 125 MCG TAB PO SCH (06:21)
[2016-10-08 06:22] LABS: MAGNESIUM 1.8 mg/dl (1.8-2.4)
[2016-10-08 06:31] LABS: INR 2.1 (0.9-1.1); PROTHROMBIN TIME (PATIENT) 23.1 SECONDS (9.0-12.0)
[2016-10-08 07:26] VITALS: BP 112/65; PULSE 84; TEMP 37; O2SAT 94
[2016-10-08 08:30] VITALS: O2SAT 94
[2016-10-08] MEDS: INSULIN ASPART 100 UNITS/ML 3 ML PEN SC SCH ×4 (08:30→20:10)
--- NOTE | 2016-10-08 08:44 | Clinical Documentation Query ---
BAKARI Trinh : CLINICAL DOCUMENTATION QUERY Patient is a 70 year old male admitted per H&P for "sepsis" due to "likely skin source". Subsequent to this, documentation has included "likely cellulitis". The former statement does not explicitly contain "cellulitis" whereas the latter statement has dropped "sepsis" from the note. Patient was febrile and tachycardic, lactic acid was elevated with leukocytosis on admission. As appropriate, consider clarification as suggested below as this may serve to avoid outfitter cabin uncertainty at time of discharge. Thank you. In your clinical opinion is this patient being managed for: ( X ) Early Sepsis secondary to RLE cellulitis, POA ( ) Other explanation of clinical findings (Please Explain) ( ) Unable to determine (Please Define) ( ) Need to Discuss ( ) Not Agree The medical record reflects the following clinical findings, treatment, and risk factors. Clinical Indicators: As above Treatment: IV Unasyn, IV Vancomycin, radiology, micro, chemistries Risk Factors: Obesity, history of cellulitis Please clarify and document your clinical opinion in the progress notes and discharge summary. Terms such as "probable", "suspected", "likely", "questionable", "possible", or "still to be ruled out" are acceptable. IF IN AGREEMENT, YOU MUST DOCUMENT ABOVE DIAGNOSTIC STATEMENT IN DAILY PROGRESS NOTES AND DISCHARGE SUMMARY. This document is not part of the patient's record. Thank You, Dariusz Correia RN [phone]
--- NOTE | 2016-10-08 09:05 | Progress Note ---
Subjective Date of Service: Oct 08, 2016. Subjective Pt evaluation today including: conversation w/ patient, physical exam, lab review, review of studies, review of inpatient medication list Febrile overnight, afebrile this morning. Eating well, although he c/o early satiety at times. Has had colonoscopy in the past, unable to recall when. Never had EGD. No weight loss, only started while in hospital. No chest pain, no sob. Right calf pain and swelling slightly improved. Both BCX bottles now growing GPC in chains Problem List Medical Problems: (1) Cellulitis Status: Acute (2) SIRS (systemic inflammatory response syndrome) Status: Acute Review of Systems All Other Systems: Reviewed and Negative Medications Acetaminophen (Tylenol Tab) 650 mg Q4H PRN PO Last administered on 10/07/16 23:28; Admin Dose 650 MG; Start 10/07/16 at 02:45; Stop 11/06/16 at 02:44 Al Hydrox/Mg Hydrox/Simethicone (Maalox Max Susp) 15 ml Q4H PRN PO; Start 10/07 at 02:45; Stop 11/06/16 at 02:44 Amlodipine Besylate 10 mg 10 mg QPM PO Last administered on 10/07/16 20:36; Admin Dose 10 MG; Start 10/07/16 at 21:00; Stop 11/06/16 at 20:59 Ampicillin Sodium/ Sulbactam Sodium (Consult) 1 ea UD PRN N/A; Start 10/07/16 at 05:30; Stop 11/06/16 at 05:29 Ampicillin Sodium/ Sulbactam Sodium/ Sodium Chloride (Unasyn Inj/Nss 100ml) 108 ml @ 200 mls/hr Q6H IV Last administered on 10/08/16 06:10; Admin Dose 200 MLS /HR; Start 10/07/16 at 06:00; Stop 10/17/16 at 05:59 Atorvastatin Calcium (Lipitor Tab) 40 mg HS PO Last administered on 10/07/16 20 :36; Admin Dose 40 MG; Start 10/07/16 at 21:00; Stop 11/06/16 at 20:59 Citalopram Hydrobromide (celeXA TAB) 20 mg QPM PO Last administered on 20:36; Admin Dose 20 MG; Start 10/07/16 at 21:00; Stop 11/06/16 at 20:59 Dextrose (Dextrose 50% 50ML Syringe) 25-50ML OF 50% DW IV FOR... UD PRN IV; Start 10/07/16 at 04:00; Stop 11/06/16 at 03:59 Glucagon (Glucagon Inj) 1 mg UD PRN SQ; Start 10/07/16 at 04:00; Stop 11/06/16 at 03:59 Glucose (Glucose 40% Gel) 15-30 GRAMS 15 GRAMS... UD PRN PO; Start 10/07/16 at 04:00; Stop 11/06/16 at 03:59 Glucose (Glucose Chew Tab) 4-8 Tablets 4 Tabl... UD PRN PO; Start 10/07/16 at 04:00; Stop 11/06/16 at 03:59 Insulin Aspart (novoLOG ASPART) SLIDING SCALE G... ACHS SC Last administered on 10/07/16 20:39; Admin Dose 1 UNITS; Start 10/07/16 at 06:30; Stop 11/06/16 at 06:59 Levothyroxine Sodium (Synthroid Tab) 125 mcg DAILYBB PO Last administered on 06:21; Admin Dose 125 MCG; Start 10/07/16 at 06:30; Stop 11/06/16 at 06: 29 Magnesium Hydroxide (Milk Of Magnesia Susp) 30 ml Q6H PRN PO; Start 10/07/16 at 02:45; Stop 11/06/16 at 02:44 Ondansetron HCl (Zofran Inj) 4 mg Q6H PRN IV; Start 10/07/16 at 02:45; Stop at 02:44 Polyethylene (Miralax Powder Packet) 17 gm DAILY PRN PO; Start 10/07/16 at 02: 45; Stop 11/06/16 at 02:44 Vancomycin HCl 1 ea 1 ea UD PRN N/A; Start 10/07/16 at 05:30; Stop 11/06/16 at 05:29 Vancomycin HCl/ Sodium Chloride (Vancomycin Inj/ Nss 500ml) 530 ml @ 200 mls/ hr Q16H IV Last administered on 10/07/16 21:36; Admin Dose 200 MLS/HR; Start at 20:00; Stop 10/17/16 at 19:59 Warfarin Sodium (Coumadin Tab) 4 mg DAILY@1600 PO Last administered on t 16:38; Admin Dose 4 MG; Start 10/07/16 at 16:00; Stop 11/06/16 at 15:59 Zolpidem Tartrate (Ambien Tab) 5 mg HSZ PRN PO; Start 10/07/16 at 02:45; Stop 11/06/16 at 02:44 Objective Vital Signs Date Time Temp Pulse Resp B/P Pulse Ox O2 Delivery O2 Flow Rate FiO2 10/08/16 07:26 37.0 84 20 112/65 94 Room Air 10/08/16 00:31 37.5 10/08/16 00:01 Room Air 10/07/16 23:00 38.2 85 20 119/70 92 Room Air 10/07/16 20:30 37.7 80 16 112/60 93 Room Air 10/07/16 20:00 Room Air 10/07/16 16:00 95 Room Air 10/07/16 15:24 37.1 76 18 115/73 94 Room Air Physical Exam Comments: nad, aox3, anicteric s1 s2 rrr, no murmurs appreciated ctab no w/r/r abd soft nt/nd +BS no LLE edema, RLE calf tenderness and edema improved Laboratory Results Last 24 Hours Test 10/07/16 10:09 10/07/16 11:26 10/07/16 13:55 10/07/16 16:19 White Blood Count 18.53 K/uL Red Blood Count 4.81 M/uL Hemoglobin 13.2 g/dL Hematocrit 39.1 % Mean Corpuscular Volume 81.3 fL Mean Corpuscular Hemoglobin 27.4 pg Mean Corpuscular Hemoglobin Concent 33.8 g/dl RDW Standard Deviation 40.9 fL RDW Coefficient of Variation 13.6 % Platelet Count 98 K/uL Mean Platelet Volume 10.5 fL Sodium Level 138 mmol/L Potassium Level 4.1 mmol/L Chloride Level 105 mmol/L Carbon Dioxide Level 26 mmol/L Anion Gap 7.0 mmol/L Blood Urea Nitrogen 20 mg/dl Creatinine 1.50 mg/dl Est Creatinine Clear Calc Drug Dose 55.6 ml/min Estimated GFR () 54.3 Estimated GFR (Non- 46.8 BUN/Creatinine Ratio 13.6 Random Glucose 226 mg/dl Calcium Level 8.4 mg/dl Bedside Glucose 194 mg/dl 127 mg/dl Prothrombin Time 26.0 SECONDS Prothromb Time International Ratio 2.3 Test 10/07/16 20:28 10/08/16 05:06 10/08/16 07:54 Bedside Glucose 167 mg/dl 137 mg/dl White Blood Count 10.96 K/uL Red Blood Count 4.18 M/uL Hemoglobin 12.1 g/dL Hematocrit 34.7 % Mean Corpuscular Volume 83.0 fL Mean Corpuscular Hemoglobin 28.9 pg Mean Corpuscular Hemoglobin Concent 34.9 g/dl Platelet Count 92 K/uL Mean Platelet Volume 10.8 fL Neutrophils (%) (Auto) 83.4 % Lymphocytes (%) (Auto) 9.2 % Monocytes (%) (Auto) 6.4 % Eosinophils (%) (Auto) 0.4 % Basophils (%) (Auto) 0.2 % Neutrophils # (Auto) 9.15 K/uL Lymphocytes # (Auto) 1.01 K/uL Monocytes # (Auto) 0.70 K/uL Eosinophils # (Auto) 0.04 K/uL Basophils # (Auto) 0.02 K/uL RDW Standard Deviation 43.5 fL RDW Coefficient of Variation 14.3 % Immature Granulocyte % (Auto) 0.4 % Immature Granulocyte # (Auto) 0.04 K/uL Prothrombin Time 23.1 SECONDS Prothromb Time International Ratio 2.1 Sodium Level 141 mmol/L Potassium Level 3.8 mmol/L Chloride Level 109 mmol/L Carbon Dioxide Level 28 mmol/L Anion Gap 4.0 mmol/L Blood Urea Nitrogen 17 mg/dl Creatinine 1.10 mg/dl Est Creatinine Clear Calc Drug Dose 75.9 ml/min Estimated GFR () 79.0 Estimated GFR (Non- 68.1 BUN/Creatinine Ratio 15.7 Random Glucose 145 mg/dl Calcium Level 8.4 mg/dl Magnesium Level 1.8 mg/dl Total Bilirubin 0.7 mg/dl Aspartate Amino Transf (AST/SGOT) 11 U/L Alanine Aminotransferase (ALT/SGPT) 20 U/L Alkaline Phosphatase 61 U/L Total Protein 5.8 gm/dl Albumin 2.9 gm/dl Globulin 2.9 gm/dl Albumin/Globulin Ratio 1.0 PATIENT: JO-ANN SRINIVASAN LOC: [facility] U # : [id number] AGE/SX: 70/M ROOM: E405 REG : 10/07/[address]: Blanca Delgadillo MD : [id number] BED: 1 DIS : STATUS: ADM IN TLOC: SPEC #: [id number] TRACEE: 10/06/16 STATUS: RES REQ #: [id number] RECD: 10/06/[address]: Shayan Herrera DO SOURCE: BLOOD ENTR: 10/06/[address] [facility] [address]: Clay Menendez M.D. SPDESC: ORDERED: BLOOD CULTURE COMMENTS: Comments to [employer] Supervisor SAME TIME DIFFERENT SITES Procedure Result Verified Site BLD CULT Preliminary 10/07/16-3 Organism 1 GRAM POSITIVE COCCI SENS SENSITIVITY TO FOLLOW Phoned Positive Blood Culture Gram Stain Report to ROSEY TAYLOR on 10/07/16 At 1622 By [facility]. Results were verbalized back to [facility]. Assessment and Plan 1. RLE calf tenderness - likely cellulitis - clinically consistent with strep cellulitis, check mrsa swab - venous doppler of right leg negative for dvt - joshua and bill at this time - cxr and UA unremarkable for infectious process, no symptoms of prostatitis 2. T2DM - holding metformin - cont ISS for now - glucose readings acceptable 3. h/o DVT/PE - coumadin per home regimen - monitor INR in setting of abx 4. HTN - acceptable BP readings - cont lisinopril and amlodipine 5. hypothyroid - cont synthroid home dose
[2016-10-08] MEDS: ACETAMINOPHEN 325 MG TAB PO PRN (12:28)
[2016-10-08] MEDS: VANCOMYCIN INJ 1,500 MG in SODIUM CHLORIDE 0.9% 500ML 500 ML IV SCH (13:25)
[2016-10-08 16:09] VITALS: BP 122/71; PULSE 78; TEMP 36.7; O2SAT 96
[2016-10-08] MEDS: WARFARIN SOD 4 MG TAB PO SCH (16:35)
[2016-10-08] MEDS: ATORVASTATIN 40 MG TAB PO SCH (20:05)
[2016-10-08] MEDS: CITALOPRAM 20 MG TAB PO SCH (20:05)
[2016-10-08] MEDS: AMLODIPINE BESYLATE 5 MG TAB PO SCH (20:06)
[2016-10-08 23:48] VITALS: BP 134/75; PULSE 79; TEMP 37.3; O2SAT 93
[2016-10-09] MEDS: ACETAMINOPHEN 325 MG TAB PO PRN (00:24)
[2016-10-09] MEDS ORDERED: VANCOMYCIN TROUGH SCH (03:30)
[2016-10-09 03:58] LABS: HEMATOCRIT 34.8 % (42-52); MEAN CELL VOLUME 82.9 fL (80-100); MEAN CORPUSCULAR HEMOGLOBIN 28.6 pg (25-34); MEAN CORPUSCULAR HGB CONC 34.5 g/dl (32-36)
[2016-10-09 04:00] LABS: BASO % 0.1 %; BASO ABS # 0.01 K/uL (0-0.2); COMPLETE YES; EOS % 1.5 %; IG% 0.1 %; LYMPH % 14.9 %; MEAN PLATELET VOLUME 9.8 fL (7.4-10.4); NEUT % 75.4 %; PLATELET COUNT 88 K/uL (130-400)
[2016-10-09 04:20] LABS: INR 1.7 (0.9-1.1); PROTHROMBIN TIME (PATIENT) 18.2 SECONDS (9.0-12.0)
[2016-10-09] MEDS: VANCOMYCIN INJ 1,500 MG in SODIUM CHLORIDE 0.9% 500ML 500 ML IV SCH (04:20)
[2016-10-09 04:30] LABS: BUN/CREATININE RATIO 13.1 (10-20); CALCIUM 8.4 mg/dl (8.5-10.1); CREATININE 1.1 mg/dl (0.60-1.40); POTASSIUM 3.8 mmol/L (3.5-5.1)
[2016-10-09] MEDS: LEVOTHYROXINE 125 MCG TAB PO SCH (06:17)
[2016-10-09] MEDS: AMPICILLIN/SULBACTAM SOD INJ 3,000 MG in SODIUM CHLORIDE 0.9% 100ML 100 ML IV SCH ×4 (06:17→23:44)
[2016-10-09 07:27] VITALS: BP 127/76; PULSE 73; TEMP 36.6; O2SAT 94
[2016-10-09] MEDS: INSULIN ASPART 100 UNITS/ML 3 ML PEN SC SCH ×4 (07:37→21:25)
--- NOTE | 2016-10-09 09:47 | Progress Note ---
Subjective Date of Service: Oct 09, 2016. Subjective Pt evaluation today including: conversation w/ patient, physical exam, lab review, review of studies, review of inpatient medication list Feeling better. Afebrile overnight. Appetite back to normal and eating well. No abd pain, no chest pain, no joint pains. Never had any urinary symptoms. Right calf pain significantly better, so is the swelling. Problem List Medical Problems: (1) Cellulitis Status: Acute (2) SIRS (systemic inflammatory response syndrome) Status: Acute Review of Systems All Other Systems: Reviewed and Negative Medications Acetaminophen (Tylenol Tab) 650 mg Q4H PRN PO Last administered on 10/09/16 00:24; Admin Dose 650 MG; Start 10/07/16 at 02:45; Stop 11/06/16 at 02:44 Al Hydrox/Mg Hydrox/Simethicone (Maalox Max Susp) 15 ml Q4H PRN PO; Start 10/07 at 02:45; Stop 11/06/16 at 02:44 Amlodipine Besylate 10 mg 10 mg QPM PO Last administered on 10/08/16 20:06; Admin Dose 10 MG; Start 10/07/16 at 21:00; Stop 11/06/16 at 20:59 Ampicillin Sodium/ Sulbactam Sodium (Consult) 1 ea UD PRN N/A; Start 10/07/16 at 05:30; Stop 11/06/16 at 05:29 Ampicillin Sodium/ Sulbactam Sodium/ Sodium Chloride (Unasyn Inj/Nss 100ml) 108 ml @ 200 mls/hr Q6H IV Last administered on 10/09/16 12:15; Admin Dose 200 MLS /HR; Start 10/07/16 at 06:00; Stop 10/17/16 at 05:59 Atorvastatin Calcium (Lipitor Tab) 40 mg HS PO Last administered on 10/08/16 20 :05; Admin Dose 40 MG; Start 10/07/16 at 21:00; Stop 11/06/16 at 20:59 Citalopram Hydrobromide (celeXA TAB) 20 mg QPM PO Last administered on 20:05; Admin Dose 20 MG; Start 10/07/16 at 21:00; Stop 11/06/16 at 20:59 Dextrose (Dextrose 50% 50ML Syringe) 25-50ML OF 50% DW IV FOR... UD PRN IV; Start 10/07/16 at 04:00; Stop 11/06/16 at 03:59 Glucagon (Glucagon Inj) 1 mg UD PRN SQ; Start 10/07/16 at 04:00; Stop 11/06/16 at 03:59 Glucose (Glucose 40% Gel) 15-30 GRAMS 15 GRAMS... UD PRN PO; Start 10/07/16 at 04:00; Stop 11/06/16 at 03:59 Glucose (Glucose Chew Tab) 4-8 Tablets 4 Tabl... UD PRN PO; Start 10/07/16 at 04:00; Stop 11/06/16 at 03:59 Insulin Aspart (novoLOG ASPART) SLIDING SCALE G... ACHS SC Last administered on 10/08/16 20:10; Admin Dose 1 UNITS; Start 10/07/16 at 06:30; Stop 11/06/16 at 06:59 Levothyroxine Sodium (Synthroid Tab) 125 mcg DAILYBB PO Last administered on 06:17; Admin Dose 125 MCG; Start 10/07/16 at 06:30; Stop 11/06/16 at 06: 29 Magnesium Hydroxide (Milk Of Magnesia Susp) 30 ml Q6H PRN PO; Start 10/07/16 at 02:45; Stop 11/06/16 at 02:44 Ondansetron HCl (Zofran Inj) 4 mg Q6H PRN IV; Start 10/07/16 at 02:45; Stop at 02:44 Polyethylene (Miralax Powder Packet) 17 gm DAILY PRN PO; Start 10/07/16 at 02: 45; Stop 11/06/16 at 02:44 Vancomycin HCl 1 ea 1 ea UD PRN N/A; Start 10/07/16 at 05:30; Stop 11/06/16 at 05:29 Vancomycin HCl/ Sodium Chloride (Vancomycin Inj/ Nss 500ml) 530 ml @ 200 mls/ hr Q16H IV Last administered on 10/09/16 04:20; Admin Dose 200 MLS/HR; Start at 20:00; Stop 10/17/16 at 19:59 Warfarin Sodium (Coumadin Tab) 2 mg TODAY@1600 ONCE PO; Start 10/09/16 at 16:00 ; Stop 10/09/16 at 16:01 Warfarin Sodium (Coumadin Tab) 4 mg DAILY@1600 PO Last administered on t 16:35; Admin Dose 4 MG; Start 10/07/16 at 16:00; Stop 11/06/16 at 15:59 Zolpidem Tartrate (Ambien Tab) 5 mg HSZ PRN PO; Start 10/07/16 at 02:45; Stop 11/06/16 at 02:44 Objective Vital Signs Date Time Temp Pulse Resp B/P Pulse Ox O2 Delivery O2 Flow Rate FiO2 10/09/16 07:27 36.6 73 16 127/76 94 Room Air 10/09/16 00:01 Room Air 10/08/16 23:48 37.3 79 20 134/75 93 Room Air 10/08/16 20:00 Room Air 10/08/16 16:09 36.7 78 18 122/71 96 Room Air 10/08/16 15:07 Room Air Physical Exam Comments: nad, aox3 s1 s2 rrr, no murmurs appreciated ctab no w/r/r abd soft nt nd +BS RLE calf edema improved, no LLE edema, no other rashes Laboratory Results Last 24 Hours Test 10/08/16 11:05 10/08/16 16:28 10/08/16 19:50 10/09/16 03:35 Bedside Glucose 182 mg/dl 126 mg/dl 184 mg/dl White Blood Count 7.40 K/uL Red Blood Count 4.20 M/uL Hemoglobin 12.0 g/dL Hematocrit 34.8 % Mean Corpuscular Volume 82.9 fL Mean Corpuscular Hemoglobin 28.6 pg Mean Corpuscular Hemoglobin Concent 34.5 g/dl Platelet Count 88 K/uL Mean Platelet Volume 9.8 fL Neutrophils (%) (Auto) 75.4 % Lymphocytes (%) (Auto) 14.9 % Monocytes (%) (Auto) 8.0 % Eosinophils (%) (Auto) 1.5 % Basophils (%) (Auto) 0.1 % Neutrophils # (Auto) 5.58 K/uL Lymphocytes # (Auto) 1.10 K/uL Monocytes # (Auto) 0.59 K/uL Eosinophils # (Auto) 0.11 K/uL Basophils # (Auto) 0.01 K/uL RDW Standard Deviation 42.4 fL RDW Coefficient of Variation 14.0 % Immature Granulocyte % (Auto) 0.1 % Immature Granulocyte # (Auto) 0.01 K/uL Prothrombin Time 18.2 SECONDS Prothromb Time International Ratio 1.7 Sodium Level 140 mmol/L Potassium Level 3.8 mmol/L Chloride Level 108 mmol/L Carbon Dioxide Level 27 mmol/L Anion Gap 5.0 mmol/L Blood Urea Nitrogen 14 mg/dl Creatinine 1.10 mg/dl Est Creatinine Clear Calc Drug Dose 75.9 ml/min Estimated GFR () 79.0 Estimated GFR (Non- 68.1 BUN/Creatinine Ratio 13.1 Random Glucose 152 mg/dl Calcium Level 8.4 mg/dl Magnesium Level 2.0 mg/dl Vancomycin Level Trough 12.4 mcg/ml Test 10/09/16 07:36 Bedside Glucose 133 mg/dl Assessment and Plan 1. Sepsis - 2/2 GBS bacteremia from cellulitis - venous doppler of right leg negative for dvt, no drainable abscess noted - unasyn and stop vanco, will transition to po augmentin once sensitivities come back to finish 14-day course - cxr and UA unremarkable for infectious process, no symptoms of prostatitis 2. T2DM - holding metformin - cont ISS for now - glucose readings acceptable 3. h/o DVT/PE - coumadin per home regimen - give total of 6mg coumadin tonight due to subtherapeutic INR - monitor INR in setting of abx 4. HTN - acceptable BP readings - cont lisinopril and amlodipine 5. hypothyroid - cont synthroid home dose
--- NOTE | 2016-10-09 11:39 | Pharmacy Progress Note ---
Pharmacy Antibiotic Prog Note Date of Service Oct 09, 2016. Subjective The patient is currently receiving Unasyn 3,000mg IV Q6hrs + Vancomycin 1,500mg IV every 16 hours. The patient is currently on day # 3 of abx IV therapy. Objective Height (Feet): 5 Height (Inches): 8.00 Weight (Kilograms): 109.000 Levels: Item Value Date Time Vancomycin Level Trough 12.4 mcg/ml 10/09/16 0335 Lab Results (24hrs): Laboratory Tests Test 10/09/16 03:35 BUN/Creatinine Ratio 13.1 Blood Urea Nitrogen 14 mg/dl Creatinine 1.10 mg/dl White Blood Count 7.40 K/uL Red Blood Count 4.20 M/uL Hemoglobin 12.0 g/dL Hematocrit 34.8 % Mean Corpuscular Volume 82.9 fL Mean Corpuscular Hemoglobin 28.6 pg Mean Corpuscular Hemoglobin Concent 34.5 g/dl Platelet Count 88 K/uL Mean Platelet Volume 9.8 fL Neutrophils (%) (Auto) 75.4 % Lymphocytes (%) (Auto) 14.9 % Monocytes (%) (Auto) 8.0 % Eosinophils (%) (Auto) 1.5 % Basophils (%) (Auto) 0.1 % Neutrophils # (Auto) 5.58 K/uL Lymphocytes # (Auto) 1.10 K/uL Monocytes # (Auto) 0.59 K/uL Eosinophils # (Auto) 0.11 K/uL Basophils # (Auto) 0.01 K/uL Micro Results: Item Value Date Time Blood Culture - Preliminary Resulted 10/06/16 2325 Blood Group B Beta Strep Blood Culture - Preliminary Resulted 10/06/16 2340 Blood Group B Beta Strep MRSA DNA Surveillance Screen - Final Complete 10/07/16 1745 Nasal Specimen Negative for MRSA by DNA Probe Blood Culture - Preliminary Resulted 10/07/16 1828 Blood NO GROWTH TO DATE. Blood Culture - Preliminary Resulted 10/07/16 1834 Blood NO GROWTH TO DATE. Assessment & Plan ASSESSMENT: * 70yo male receiving Unasyn + Vancomycin for RLE cellulitis * Initial blood cultures positive for group B strep. Repeat cultures negative. MRSA nasal swab negative * May consider deescalating abx regimen to Penicillin G, ampicillin, or a first /second generation cephalosporin * Vancomycin trough level drawn today prior to the 3rd maintenance dose * Trough level is near-therapeutic at 12.4mcg/ml * Goal trough level for cellulitis is 10-15mcg/ml * Anticipate vancomycin accumulation/increase in vanco trough level with repeated dosing secondary to increased BMI and large volume of distribution. * Scr elevated on admission but returned to baseline and stable at 1.1mg/dl, CrCl ~ 76ml/min PLAN: May consider deescalating abx regimen to Penicillin G, ampicillin, or a first/second generation cephalosporin. Until then, * Continue vancomycin at current dosing of 1,500mg IV Q16hrs (per pharmacy dosing consult) * Recheck vancomycin trough level 10/11/16 @ 1999. Adjust dosing to maintain goal trough level 10-15mcg/ml * Continue Unasyn 3,000mg IV Q6hrs (per provider dosing) Pharmacy will continue to follow and will adjust dose/frequency as necessary. Thank you
[2016-10-09 15:40] VITALS: BP 114/67; PULSE 72; TEMP 37; O2SAT 95
[2016-10-09] MEDS: WARFARIN SOD 4 MG TAB PO SCH (15:57)
[2016-10-09] MEDS ORDERED: WARFARIN SOD 2 MG TAB PO ONE (16:00)
[2016-10-09 19:06] VITALS: BP 146/76; PULSE 97; TEMP 36.6; O2SAT 91
[2016-10-09] MEDS: ATORVASTATIN 40 MG TAB PO SCH (21:13)
[2016-10-09] MEDS: CITALOPRAM 20 MG TAB PO SCH (21:13)
[2016-10-09] MEDS: AMLODIPINE BESYLATE 5 MG TAB PO SCH (21:13)
[2016-10-09 23:16] VITALS: BP 132/76; PULSE 65; TEMP 36.7; O2SAT 95
[2016-10-10] MEDS: AMPICILLIN/SULBACTAM SOD INJ 3,000 MG in SODIUM CHLORIDE 0.9% 100ML 100 ML IV SCH (05:57)
[2016-10-10] MEDS: LEVOTHYROXINE 125 MCG TAB PO SCH (05:57)
[2016-10-10 06:13] LABS: INR 1.8 (0.9-1.1)
[2016-10-10 07:37] VITALS: BP 123/66; PULSE 69; TEMP 36.8; O2SAT 94
[2016-10-10] MEDS ORDERED: AMOX875T PO (07:41)
[2016-10-10 08:19] VITALS: BP 123/66; PULSE 69; TEMP 36.8; O2SAT 94
--- NOTE | 2016-10-10 09:04 | Discharge Summary ---
Discharge Summary Date of Service Oct 10, 2016. Discharge Summary Admission Date: Oct 07, 2016 at 02:51 Discharge Date: Oct 10, 2016 Discharge Disposition: Home Principal Diagnosis: Group B Strep Bacteremia from RLE cellulitis Immunizations: Have You Had Influenza Vaccine: Yes Influenza Vaccine Date: Feb 06, 2010 History of Tetanus Vaccine?: Yes History of Pneumococcal: Unknown History of Hepatitis B Vaccine: No Medication Reconciliation New Medications: Amoxicillin & Pot Clavulanate (Augmentin 875-125 mg) 1 Tab Tab 875 MG PO BID for 11 Days, #22 TAB Continued Medications: Acetaminophen Tab (Tylenol) 325 Mg Tab 650 MG PO DAILY for Headache, TAB Amlodipine Besylate (Amlodipine Besylate) 10 Mg Tab 10 MG PO QPM Atorvastatin (Lipitor) 40 Mg Tab 40 MG PO HS Citalopram (Citalopram Hydrobromide) 20 Mg Tab 20 MG PO QPM Levothyroxine Sodium (Synthroid) 125 Mcg Tab 125 MCG PO DAILY, TAB Metformin Hcl (Glucophage) 1,000 Mg Tab 1000 MG PO BID Warfarin Sod (Coumadin) 4 Mg Tab 4 MG PO 6XWK Warfarin Sod (Jantoven) 2 Mg Tab 2 MG PO WK, TAB Discontinued Medications: Hydrochlorothiazide (Hydrochlorothiazide) 12.5 Mg Tab 1 TAB PO BID for 90 Days, #180 TAB 3 Refills Lisinopril (Lisinopril) 40 Mg Tab 40 MG PO QPM Hospital Course 70 y/o M Hx DVT/PE, HTN, HPL, DM 2 - was at a baseball game earlier and in his normal state of health. A few hours later he had acute onset of fevers/rigors, back pain, RLE pain and nausea with one episode of vomiting and diarrhea. He presented to the hospital for evaluation where a fever was confirmed. A CT abdomen was obtained in addition to a CXR and UA, none of which elucidated a clear source of infection. He does have a mildly erythematous area of skin on his R turner which is very painful to palpation. The pt also states that he had a LLE cellulitis which presented in a similar manner 5 years ago leading to a nine day hospital stay. His vomiting and diarrhea have not recurred so that his symptoms are most likely due to an early cellulitis. He denies CP, SOB/cough, dysuria. Initial labs reveal an elevated lactic acid, mild leukocytosis, stable thrombocytopenia and hypoK. Patient was treated with IV vanco and unasyn on admission. Both bottles of BCx grew GBStrep with repeats showing clearing of the bacteria on 10/07. Patient is to be discharged on augmentin for a total of 14 days. He was ruled out for dvt with negative RLE venous doppler. His INR was initially therapeutic and was 1.8 on discharge. He was given an extra 2mg dose of coumadin last night. He will follow-up with his PCP and will also have his INR checked. Vital Signs Date Time Temp Pulse Resp B/P Pulse Ox O2 Delivery O2 Flow Rate FiO2 10/10/16 08:50 Room Air 10/10/16 08:19 36.8 69 16 94 10/10/16 07:37 123/66 nad, aox3, anicteric s1 s2 rrr, no murmurs appreciated ctab no w/r/r abd soft nt/nd +BS R calf edema improved, no LLE edema 1. Sepsis - 2/2 GBS bacteremia from cellulitis - venous doppler of right leg negative for dvt, no drainable abscess noted - unasyn and stop vanco, will transition to po augmentin once sensitivities come back to finish 14-day course - cxr and UA unremarkable for infectious process, no symptoms of prostatitis 2. T2DM - resume home regimen hypoglycemics - will need a1c checked with goal <7 - lisinopril held due to louisa, if has microalbuminuria, may be resumed at discretion of PCP 3. h/o DVT/PE - coumadin per home regimen - INR check by primary care provider 4. HTN - acceptable BP readings - cont amlodipine - lisinopril was held due to LOUISA, but not resumed as BP were acceptable, this can be resumed at discretion of PCP if know to have microalbuminuria - hctz also held, BP were acceptable off hctz 5. hypothyroid - cont synthroid home dose Total Time Spent: Greater than 30 minutes This includes examination of the patient, discharge planning, medication reconciliation, and communication with other providers. Discharge Instructions Please refer to the electronic Patient Visit Report (Discharge Instructions) for additional information. Additional Copies To Clay Menendez M.D.
--- NOTE | 2016-10-10 09:04 | Discharge Instructions ---
Discharge Instructions Date of Service Oct 10, 2016. Admission Reason for Admission: Cellulitis, Sepsis Discharge Discharge Diagnosis / Problem: Group B Strep Bacteremia from right calf cellulitis Discharge Goals Goal(s): Decrease discomfort, Improve disease control Activity Recommendations Activity Limitations: resume your previous activity . Current Hospital Diet Patient's current hospital diet: AHA Diet (Heart Healthy), Diabetes Type 2 Diet Discharge Diet Recommended Diet: Diabetes Type 2 Diet Pending Studies Studies pending at discharge: no Laboratory Results Hemoglobin A1c Test 08/13/16 14:22 Range/Units Estimated Average Glucose 157 mg/dl Hemoglobin A1c 7.1 H 4.5-5.6 % Lipid Panel Test 08/13/16 14:22 Range/Units Triglycerides Level 254 H 0-150 mg/dl Cholesterol Level 111 0-200 mg/dl HDL Cholesterol 31 mg/dl Cholesterol/HDL Ratio 3.6 LDL Cholesterol, Calculated 29 mg/dl Medical Emergencies . Who to Call and When: Medical Emergencies: If at any time you feel your situation is an emergency, please call 911 immediately. . Non-Emergent Contact Non-Emergency issues call your: Primary Care Provider . . "Provider Documentation" section prepared by Blanca Delgadillo. . VTE Core Measure Inpt VTE Proph given/why not?: Warfarin (Coumadin)
[2016-10-10] MEDS ORDERED: WARFARIN SOD 2 MG TAB PO ONE (16:00)
[2016-10-11] MEDS ORDERED: VANCOMYCIN TROUGH SCH (19:30)
[2016-10-14] MEDS ORDERED: HYDR12.55 PO (13:39)
[2016-10-14] MEDS ORDERED: TAMS0.4C38 PO (13:39)
[2016-10-14] MEDS ORDERED: HYDR25TA5 PO (13:39)
[2016-12-22] MEDS ORDERED: LISI40TA PO (11:11)
[2017-03-30] MEDS ORDERED: LEVO112T2 PO (10:07)
[2017-03-30] MEDS ORDERED: HYDR25TA4 PO (10:07)
[2017-03-30] MEDS ORDERED: VALA1TAB2 PO (10:07)
[2017-03-30] MEDS ORDERED: ATOR-54 PO (10:07)
[2017-03-30] MEDS ORDERED: OXYC-57 PO (10:07)
[2017-03-30] MEDS ORDERED: PRED20TA PO (10:07)
[2017-04-13] MEDS ORDERED: ENOX40IN SQ (08:22)
== END 2016-10-10 11:41 | disposition home or self-care (01) | DRG 872 ==
LOC: ENRESERVTM → ENRESERVDT → C.EDB 22:37 → C.4E 10-07 02:51
PROVIDERS: ADMIT Internal Medicine; ATTEND Internal Medicine
DX: A41.9 Sepsis, unspecified organism (principal); L03.115 Cellulitis of right lower limb; I10 Essential (primary) hypertension; E11.9 Type 2 diabetes mellitus without complications; E86.0 Dehydration; E03.9 Hypothyroidism, unspecified; E87.6 Hypokalemia; Z79.01 Long term (current) use of anticoagulants; Z87.891 Personal history of nicotine dependence; Z86.711 Personal history of pulmonary embolism

== ENCOUNTER 2016-10-12 11:16 | Emergency (ER) | payer OTHER ==
[~2016-10-12] VITALS: Ht 172.7 cm; Wt 112.0 kg
[~2016-10-12 11:16] MED LIST changes: +AMOX875T PO; -HYDR12.55 PO; -LSN40 PO
[2016-10-12 11:18] VITALS: TEMP 37; Ht 172.7 cm; Wt 112.0 kg
[2016-10-12 12:39] VITALS: O2SAT 93
--- NOTE | 2016-10-12 12:43 | EMERGENCY ROOM VISIT NOTE ---
History Report prepared by Nicky: You Cruz Under the Supervision of: Dr. Sandee Camilo D.O. First contact with patient: 12:01 Chief Complaint: INFECTION Stated Complaint: RT LEG REDNESS,CELLULITIS Nursing Triage Summary: Patient d/c on Wednesday, admission for cellulitis, presents today with worsening right lower leg redness and warm. Petichial rash noted to right lower leg. Negative ryley's sign. +2 non-pitting edema b/l. History of Present Illness The patient is a 70 year old male who presents to the Emergency Room with complaints of a worsening infection to his right lower leg that began several days ago. He currently rates his discomfort as a 2/10 in severity. The patient states that he was recently evaluated in the hospital for a right leg cellulitis. He states that he was discharged two days ago with Group B strep, and notes that he was septic. Per the patient's , the patient noticed erythema, tightness, edema. She states that today the patient has noticed erythema, edema, and warmth, but no more tightness. The patient states that he has noticed pain in some areas. The patient denies any fever, chest pain, shortness of breath, nausea, vomiting, or loss of appetite. Per records the patient was discharged on Augmentin. The patient denies any history of Diabetes. Source of History: patient, spouse/significant other () Onset: several days ago Position: leg (right) Symptom Intensity: 2/10 Quality: other (infection) Timing: other (persistent) Associated Symptoms: No SOB, No chest pain, No fevers, No nausea, No vomiting Note: Associated Symptoms: erythema to the right leg, edema to right leg, warm to touch. Review of Systems See HPI for pertinent positives & negatives. A total of 10 systems reviewed and were otherwise negative. Past Medical & Surgical Medical Problems: (1) HTN (hypertension) (2) Kidney stones (3) Leukopenia (4) Sepsis (5) Thrombocytopenia Family History Diabetes mellitus Heart disease Hypertension Kidney disease Kidney stones Social History Smoking Status: Former Smoker Marital Status: Housing Status: lives with family Occupation Status: retired Current/Historical Medications Scheduled Acetaminophen Tab (Tylenol), 650 MG PO DAILY Amlodipine Besylate (Amlodipine Besylate), 10 MG PO QPM Atorvastatin (Lipitor), 40 MG PO HS Cephalexin Monohydrate (Keflex), 500 MG PO QID Citalopram (Citalopram Hydrobromide), 20 MG PO QPM Levothyroxine Sodium (Synthroid), 125 MCG PO DAILY Metformin Hcl (Glucophage), 1,000 MG PO BID Warfarin Sod (Coumadin), 4 MG PO 6XWK Warfarin Sod (Jantoven), 2 MG PO WK Allergies Coded Allergies: Etodolac (Verified Allergy, Intermediate, HAND SWELLING, 10/12/16) Physical Exam Vital Signs Date Time Temp Pulse Resp B/P Pulse Ox O2 Delivery O2 Flow Rate FiO2 10/12/16 15:37 64 20 128/75 94 Room Air 10/12/16 13:38 58 18 131/75 93 Room Air 10/12/16 12:39 93 Room Air 10/12/16 12:39 61 18 116/70 93 Room Air 10/12/16 11:18 37.0 66 20 141/78 94 Room Air Physical Exam HEENT: Head - normocephalic and atraumatic Pupils are equal, round, and reactive to light. Extraocular eye muscles are intact, and sclera are anicteric. Nose - moist nasal mucosa without discharge. Mouth - Vesicular lesions about lips with crusting. Oropharynx is nonerythematous and there is no tonsillar exudate or edema noted. Neck: Supple; no JVD, nuchal rigidity, cervical lymphadenopathy. Heart: Regular rate and rhythm. There is a normal S1 and S2 with no murmurs, clicks, or gallops appreciated. Lungs: Clear to auscultation bilaterally with no wheezes, rales, or rhonchi. Abdomen: Soft, completely nontender, nondistended, with good bowel sounds. There are no palpable pulsatile masses or hepatosplenomegaly. There is no guarding, rigidity, or rebound noted. Extremities: No evidence of cyanosis, clubbing, or edema. There are easily palpable peripheral pulses. Skin: Right lower extremity has edema and very mild circumferential erythema, to the mid low calf. Medical Decision & Procedures ER Provider Diagnostic Interpretation: US results as stated below per my review and radiologist interpretation: ULTRASOUND RIGHT VENOUS DOPP LOWER EXT UNILAT CLINICAL HISTORY: Right lower leg pain REDNESS, CELLULITIS. COMPARISON STUDY: 10/07/2016 FINDINGS: Real-time and color flow Doppler imaging were performed. Flow was seen within the femoral, popliteal and calf veins with no intraluminal thrombus demonstrated. The saphenous vein is patent. IMPRESSION: No evidence of right lower extremity DVT Electronically signed by: Gerson Cuevas M.D. 10/12/2016 2:13 PM Dictated Date/Time: 10/12/2016 2:12 PM Laboratory Results 10/12/16 11:40 Red Blood Count 4.84, Mean Corpuscular Volume 82.0, Mean Corpuscular Hemoglobin 28.3, Mean Corpuscular Hemoglobin Concent 34.5, Mean Platelet Volume 10.1, Neutrophils (%) (Auto) 61.9, Lymphocytes (%) (Auto) 26.7, Monocytes (%) (Auto) 8.1, Eosinophils (%) (Auto) 2.1, Basophils (%) (Auto) 0.8, Neutrophils # (Auto) 2.99, Lymphocytes # (Auto) 1.29, Monocytes # (Auto) 0.39, Eosinophils # (Auto) 0.10, Basophils # (Auto) 0.04 10/12/16 11:40 Test 10/12/16 11:40 10/12/16 13:01 White Blood Count 4.83 K/uL (4.8-10.8) Red Blood Count 4.84 M/uL (4.7-6.1) Hemoglobin 13.7 g/dL (14.0-18.0) Hematocrit 39.7 % (42-52) Mean Corpuscular Volume 82.0 fL (80-100) Mean Corpuscular Hemoglobin 28.3 pg (25-34) Mean Corpuscular Hemoglobin Concent 34.5 g/dl (32-36) Platelet Count 144 K/uL (130-400) Mean Platelet Volume 10.1 fL (7.4-10.4) Neutrophils (%) (Auto) 61.9 % Lymphocytes (%) (Auto) 26.7 % Monocytes (%) (Auto) 8.1 % Eosinophils (%) (Auto) 2.1 % Basophils (%) (Auto) 0.8 % Neutrophils # (Auto) 2.99 K/uL (1.4-6.5) Lymphocytes # (Auto) 1.29 K/uL (1.2-3.4) Monocytes # (Auto) 0.39 K/uL (0.11-0.59) Eosinophils # (Auto) 0.10 K/uL (0-0.5) Basophils # (Auto) 0.04 K/uL (0-0.2) RDW Standard Deviation 41.1 fL (36.4-46.3) RDW Coefficient of Variation 13.7 % (11.5-14.5) Immature Granulocyte % (Auto) 0.4 % Immature Granulocyte # (Auto) 0.02 K/uL (0.00-0.02) Prothrombin Time 22.9 SECONDS (9.0-12.0) Prothromb Time International Ratio 2.1 (0.9-1.1) Activated Partial Thromboplast Time 36.9 SECONDS (21.0-31.0) Partial Thromboplastin Ratio 1.4 Anion Gap 7.0 mmol/L (3-11) Est Creatinine Clear Calc Drug Dose 70.5 ml/min Estimated GFR () 71.1 Estimated GFR (Non- 61.3 BUN/Creatinine Ratio 10.2 (10-20) Calcium Level 9.2 mg/dl (8.5-10.1) Total Bilirubin 0.6 mg/dl (0.2-1) Aspartate Amino Transf (AST/SGOT) 13 U/L (15-37) Alanine Aminotransferase (ALT/SGPT) 28 U/L (12-78) Alkaline Phosphatase 80 U/L (45-117) Total Protein 7.4 gm/dl (6.4-8.2) Albumin 3.5 gm/dl (3.4-5.0) Globulin 3.9 gm/dl (2.5-4.0) Albumin/Globulin Ratio 0.9 (0.9-2) Bedside Lactic Acid Venous 1.75 mmol/L (0.90-1.70) Laboratory results per my review. Medications Administered Medications (Trade) Dose Ordered Sig/Ashleigh Route Start Time Stop Time Status Last Admin Dose Admin Cephalexin Monohydrate (Keflex Cap) 500 mg NOW ONCE PO 10/12/16 15:15 10/12/16 15:16 DC 10/12/16 15:29 500 MG Procedure The patient was treated with Keflex Cap 500 mg PO. ED Course 1220: Past medical records reviewed. The patient was evaluated in room B12B. A complete history and physical exam was performed. An IV lock was initiated and labs were drawn as above. 1316: I reevaluated the patient and he is feeling fine. He is going to have an ultrasound to rule out DVT 1422: I reevaluated the patient and he is doing well. I discussed all the exam findings with him and I discussed the treatment plan. He verbalized complete understanding and agreement. His case will be discussed with the [facility]. 1427: I discussed the patient's case with ROSEMARIE Alexandra PA-C. She is going to review his records. 1447: I rediscussed the patient's case with ROSEMARIE Alexandra PA-C. She states that the patient is going to go home. The patient is in agreement with the plan. He is ready to go home shortly. 1515: Ordered Keflex Cap 500 mg PO. Medical Decision The patient is a 70 year old male who presents to the ED with worsening infection. Differential diagnosis includes recurrent sepsis, right lower extremity cellulitis, DVT, vasculitis. Lab interpretation: no leukocytosis, hemoglobin 13.7, lactic acid 1.7, glucose 160, LFTs are normal, renal function normal, INR 2.1 This is a 70-year-old male patient was initially discharged from the hospital after having sepsis as a result of a right lower extremity cellulitis. Upon discharge, the patient was feeling better and the cellulitis appeared to have cleared up. Unfortunately, the right lower extremity began to swell and turn red again and the family became quite concerned. In reviewing the records, it was noted that the patient's INR was subtherapeutic. We ordered an ultrasound to rule out DVT. This was negative. I discussed the case with the [facility] admitting team. The patient has no fever, no signs of sepsis and no leukocytosis. There is some mild erythema noted to the leg along with some edema. They have decided to discharge the patient and watch him closely as an outpatient. We will add Keflex to his outpatient regimen. They will discharge him. Impression Primary Impression: Lower extremity cellulitis Scribe Attestation The scribe's documentation has been prepared under my direction and personally reviewed by me in its entirety. I confirm that the note above accurately reflects all work, treatment, procedures, and medical decision making performed by me. Departure Information Dispostion Home / Self-Care Prescriptions Cephalexin Monohydrate (KEFLEX) 500 Mg Cap 500 MG PO QID for 14 Days, #56 CAP Prov: Velia Cabrales PA-C 10/12/16 Referrals Clay Menendez M.D. (PCP) Forms HOME CARE DOCUMENTATION FORM, IMPORTANT VISIT INFORMATION, WORK / SCHOOL INSTRUCTIONS Patient Instructions Cellulitis - [facility], My [facility] Additional Instructions Please stop Augmentin. Start Keflex 500 mg 4 times daily Please follow up with your primary care physician as scheduled tomorrow Please monitor blood sugars carefully specially in the setting of an acute infection. Please return to the emergency department with any new or worsening symptoms
[2016-10-12 13:02] LABS: BASO % 0.8 %; BASO ABS # 0.04 K/uL (0-0.2); COMPLETE YES; EOS % 2.1 %; HEMATOCRIT 39.7 % (42-52); IG% 0.4 %; LYMPH % 26.7 %; LYMPH ABS # 1.29 K/uL (1.2-3.4); MEAN CORPUSCULAR HEMOGLOBIN 28.3 pg (25-34); MEAN CORPUSCULAR HGB CONC 34.5 g/dl (32-36); MEAN PLATELET VOLUME 10.1 fL (7.4-10.4); MONO % 8.1 %; NEUT % 61.9 %; PLATELET COUNT 144 K/uL (130-400); RED BLOOD COUNT 4.84 M/uL (4.7-6.1); WHITE BLOOD COUNT 4.83 K/uL (4.8-10.8)
[2016-10-12 13:11] LABS: BUN/CREATININE RATIO 10.2 (10-20); CALCIUM 9.2 mg/dl (8.5-10.1); CREATININE 1.2 mg/dl (0.60-1.40)
[2016-10-12 13:14] LABS: ALB/GLOB RATIO 0.9 (0.9-2)
[2016-10-12 13:18] LABS: INR 2.1 (0.9-1.1); PARTIAL THROMBOPLASTIN RATIO 1.4; PROTHROMBIN TIME (PATIENT) 22.9 SECONDS (9.0-12.0)
--- NOTE | 2016-10-12 14:14 | DIAGNOSTIC IMAGING REPORT ---
ULTRASOUND RIGHT VENOUS DOPP LOWER EXT UNILAT CLINICAL HISTORY: Right lower leg pain REDNESS, CELLULITIS. COMPARISON STUDY: 10/07/2016 FINDINGS: Real-time and color flow Doppler imaging were performed. Flow was seen within the femoral, popliteal and calf veins with no intraluminal thrombus demonstrated. The saphenous vein is patent. IMPRESSION: No evidence of right lower extremity DVT Electronically signed by: Gerson Cuevas M.D. 10/12/2016 2:13 PM Dictated Date/Time: 10/12/2016 2:12 PM
--- NOTE | 2016-10-12 15:01 | Medical Consult ---
Consultation Date of Consultation: October 12, 2016. Attending Physician: Dr. Camilo Reason for Consultation: Evaluation for admission History of Present Illness This patient is a pleasant 70-year-old male that presents emergency department concerned about right lower extremity redness that started yesterday. The patient was admitted to the hospital with right lower extremity cellulitis from 10/07-10/10. He was also diagnosed with group B beta strep bacteremia. He was treated with vancomycin and Zosyn in-house. The patient was discharged home 2 days ago on a course of Augmentin for 2 weeks. The patient reports taking his medication as prescribed. He noticed the redness in his leg getting worse yesterday. He also reports malaise yesterday. He denies any fevers, rigors or chills. He denies any nausea, vomiting or diarrhea. He denies any other symptoms such as chest pain or pressure. No shortness of breath or dyspnea on exertion. He does note a mild amount of pain in the leg. 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) Allergies Coded Allergies: Etodolac (Verified Allergy, Intermediate, HAND SWELLING, 10/12/16) Home Medications Norvasc 10 mg daily Augmentin 875 mg twice daily for 2 weeks Lipitor 40 mg at night Citalopram 20 mg daily Synthroid 125 mg daily Metformin 1000 mg twice daily Warfarin 4 mg every day except when he takes 2 mg Review of Systems 10 system review performed and negative unless noted in HPI or below Physical Exam Date Time Temp Pulse Resp B/P Pulse Ox O2 Delivery O2 Flow Rate FiO2 10/12/16 13:38 58 18 131/75 93 Room Air 10/12/16 12:39 93 Room Air 10/12/16 12:39 61 18 116/70 93 Room Air 10/12/16 11:18 37.0 66 20 141/78 94 Room Air General Appearance: no apparent distress Head: normocephalic Eyes: EOMI Neck: no JVD Respiratory/Chest: lungs clear Cardiovascular: regular rate, rhythm, no murmur Abdomen/GI: normal bowel sounds, non tender, soft Extremities/Musculoskelatal: + pertinent finding (+1 pitting edema in the lower extremities bilaterally. Mild amount of erythema noted to the anterior aspect of the turner. Also some warmth noted. Skin is intact.) Laboratory Results 10/12/16 11:40 Red Blood Count 4.84, Mean Corpuscular Volume 82.0, Mean Corpuscular Hemoglobin 28.3, Mean Corpuscular Hemoglobin Concent 34.5, Mean Platelet Volume 10.1, Neutrophils (%) (Auto) 61.9, Lymphocytes (%) (Auto) 26.7, Monocytes (%) (Auto) 8.1, Eosinophils (%) (Auto) 2.1, Basophils (%) (Auto) 0.8, Neutrophils # (Auto) 2.99, Lymphocytes # (Auto) 1.29, Monocytes # (Auto) 0.39, Eosinophils # (Auto) 0.10, Basophils # (Auto) 0.04 10/12/16 11:40 Test 10/12/16 11:40 10/12/16 13:01 White Blood Count 4.83 K/uL (4.8-10.8) Red Blood Count 4.84 M/uL (4.7-6.1) Hemoglobin 13.7 g/dL (14.0-18.0) Hematocrit 39.7 % (42-52) Mean Corpuscular Volume 82.0 fL (80-100) Mean Corpuscular Hemoglobin 28.3 pg (25-34) Mean Corpuscular Hemoglobin Concent 34.5 g/dl (32-36) Platelet Count 144 K/uL (130-400) Mean Platelet Volume 10.1 fL (7.4-10.4) Neutrophils (%) (Auto) 61.9 % Lymphocytes (%) (Auto) 26.7 % Monocytes (%) (Auto) 8.1 % Eosinophils (%) (Auto) 2.1 % Basophils (%) (Auto) 0.8 % Neutrophils # (Auto) 2.99 K/uL (1.4-6.5) Lymphocytes # (Auto) 1.29 K/uL (1.2-3.4) Monocytes # (Auto) 0.39 K/uL (0.11-0.59) Eosinophils # (Auto) 0.10 K/uL (0-0.5) Basophils # (Auto) 0.04 K/uL (0-0.2) RDW Standard Deviation 41.1 fL (36.4-46.3) RDW Coefficient of Variation 13.7 % (11.5-14.5) Immature Granulocyte % (Auto) 0.4 % Immature Granulocyte # (Auto) 0.02 K/uL (0.00-0.02) Prothrombin Time 22.9 SECONDS (9.0-12.0) Prothromb Time International Ratio 2.1 (0.9-1.1) Activated Partial Thromboplast Time 36.9 SECONDS (21.0-31.0) Partial Thromboplastin Ratio 1.4 Anion Gap 7.0 mmol/L (3-11) Est Creatinine Clear Calc Drug Dose 70.5 ml/min Estimated GFR () 71.1 Estimated GFR (Non- 61.3 BUN/Creatinine Ratio 10.2 (10-20) Calcium Level 9.2 mg/dl (8.5-10.1) Total Bilirubin 0.6 mg/dl (0.2-1) Aspartate Amino Transf (AST/SGOT) 13 U/L (15-37) Alanine Aminotransferase (ALT/SGPT) 28 U/L (12-78) Alkaline Phosphatase 80 U/L (45-117) Total Protein 7.4 gm/dl (6.4-8.2) Albumin 3.5 gm/dl (3.4-5.0) Globulin 3.9 gm/dl (2.5-4.0) Albumin/Globulin Ratio 0.9 (0.9-2) Bedside Lactic Acid Venous 1.75 mmol/L (0.90-1.70) Last 24 Hours Test 10/12/16 11:40 10/12/16 13:01 White Blood Count 4.83 K/uL Red Blood Count 4.84 M/uL Hemoglobin 13.7 g/dL Hematocrit 39.7 % Mean Corpuscular Volume 82.0 fL Mean Corpuscular Hemoglobin 28.3 pg Mean Corpuscular Hemoglobin Concent 34.5 g/dl Platelet Count 144 K/uL Mean Platelet Volume 10.1 fL Neutrophils (%) (Auto) 61.9 % Lymphocytes (%) (Auto) 26.7 % Monocytes (%) (Auto) 8.1 % Eosinophils (%) (Auto) 2.1 % Basophils (%) (Auto) 0.8 % Neutrophils # (Auto) 2.99 K/uL Lymphocytes # (Auto) 1.29 K/uL Monocytes # (Auto) 0.39 K/uL Eosinophils # (Auto) 0.10 K/uL Basophils # (Auto) 0.04 K/uL RDW Standard Deviation 41.1 fL RDW Coefficient of Variation 13.7 % Immature Granulocyte % (Auto) 0.4 % Immature Granulocyte # (Auto) 0.02 K/uL Prothrombin Time 22.9 SECONDS Prothromb Time International Ratio 2.1 Activated Partial Thromboplast Time 36.9 SECONDS Partial Thromboplastin Ratio 1.4 Sodium Level 138 mmol/L Potassium Level 4.0 mmol/L Chloride Level 103 mmol/L Carbon Dioxide Level 28 mmol/L Anion Gap 7.0 mmol/L Blood Urea Nitrogen 12 mg/dl Creatinine 1.20 mg/dl Est Creatinine Clear Calc Drug Dose 70.5 ml/min Estimated GFR () 71.1 Estimated GFR (Non- 61.3 BUN/Creatinine Ratio 10.2 Random Glucose 160 mg/dl Calcium Level 9.2 mg/dl Total Bilirubin 0.6 mg/dl Aspartate Amino Transf (AST/SGOT) 13 U/L Alanine Aminotransferase (ALT/SGPT) 28 U/L Alkaline Phosphatase 80 U/L Total Protein 7.4 gm/dl Albumin 3.5 gm/dl Globulin 3.9 gm/dl Albumin/Globulin Ratio 0.9 Bedside Lactic Acid Venous 1.75 mmol/L Assessment & Plan 70-year-old male with a history of diabetes presents to the emergency department with concerns for redness on his right lower extremity. Recent diagnosis of right lower extremity cellulitis and group beta strep bacteremia ( pansensitive). It is possible that his dose of Augmentin was simply subtherapeutic. -I believe the patient is stable for discharge home with close follow-up. He has an appointment scheduled with his primary care physician tomorrow. -Change Augmentin to Keflex 500 mg po QID Continue other medications as prescribed. Please closely monitor blood sugars Please return to the emergency department with any new or worsening symptoms. i personally examined pt and verified all moreira points w A [facility] PAC sl leg redness returned - actually better now than last night, but worse now than it was at discharge. no f/c/s. no rigors. ros otherwise negative except for as above vitals noted nad. reg no r/m/g. lungs clear. RLE scattered petechia only from about ~5cm prox of ankle to ~7-8cm distal to knee (fairly small area) minimally tender no crepitis no fluctuance no open lesions. very mild erythema under area of scattered petechiae. new per pt and but worse last night than it is today, and better now than it was earlier. biggest variable with this appears to be elevation a/p RLE cellulitis - previously w sepsis and bacteremia. ?worsening again vs inflammatory changes showing up on skin as residual from prior infection. -no s/s recurrent sepsis -previous blood cultures cleared quickly, cultures drawn again today -if worsening infection possibly simply inadequate dosing of abx due to augmentin being BID and possibly needing higher dosing of beta lactam -- change to keflex to safely allow for higher end dosing --- 500mg QID x 14 days -- discussed risks/benefits w pt and , discussed rationale for change in treatment, discussed if this is, in fact, just late inflammatory changes showing up at skin surface, then change in abx would be mostly a "lateral move" without much change in spectrum or mechanism, just allowing for higher functional dosing and therefore more adequate response -f/u PCP tomorrow as scheduled -safe for discharge Additional Copies To Clay Menendez M.D.
[2016-10-12] MEDS ORDERED: CEPH500C2 PO (15:04)
[2016-10-12] MEDS ORDERED: CEPHALEXIN MONOHYDRATE 250 MG CAP PO ONE (15:15)
[2016-10-12 15:37] VITALS: BP 128/75; PULSE 64; O2SAT 94
[2016-10-14] MEDS ORDERED: HYDR12.55 PO (13:39)
[2016-10-14] MEDS ORDERED: HYDR25TA5 PO (13:39)
[2016-10-14] MEDS ORDERED: TAMS0.4C38 PO (13:39)
[2016-12-22] MEDS ORDERED: LISI40TA PO (11:11)
[2017-03-30] MEDS ORDERED: HYDR25TA4 PO (10:07)
[2017-03-30] MEDS ORDERED: VALA1TAB2 PO (10:07)
[2017-03-30] MEDS ORDERED: PRED20TA PO (10:07)
[2017-03-30] MEDS ORDERED: LEVO112T2 PO (10:07)
[2017-03-30] MEDS ORDERED: OXYC-57 PO (10:07)
[2017-03-30] MEDS ORDERED: ATOR-54 PO (10:07)
[2017-04-13] MEDS ORDERED: ENOX40IN SQ (08:22)
== END 2016-10-12 15:50 | disposition home or self-care (01) ==
LOC: C.EDB 11:18
DX: L03.115 Cellulitis of right lower limb (principal); M79.604 Pain in right leg; I10 Essential (primary) hypertension; E11.9 Type 2 diabetes mellitus without complications; Z86.711 Personal history of pulmonary embolism; Z86.718 Personal history of other venous thrombosis and embolism; Z87.442 Personal history of urinary calculi; Z86.19 Personal history of other infectious and parasitic diseases; Z87.891 Personal history of nicotine dependence; Z83.3 Family history of diabetes mellitus; Z84.1 Family history of disorders of kidney and ureter; Z82.49 Family history of ischemic heart disease and other diseases of the circulatory system; Z79.01 Long term (current) use of anticoagulants; Z79.84 Long term (current) use of oral hypoglycemic drugs

== ENCOUNTER → 2016-11-30 | Outpatient (CLI) | payer OTHER ==
[~2016-11-30] MED LIST changes: -AMOX875T PO; +ATOR-54 PO; +ENOX40IN SQ; +HYDR12.55 PO; +HYDR25TA4 PO; +LEVO112T2 PO; +LISI40TA PO; +OXYC-57 PO; +PRED20TA PO; +TAMS0.4C38 PO; +VALA1TAB2 PO
--- NOTE | 2016-12-01 06:30 | PAP/PSG TECHNICIAN REPORT ---
[facility] Hvac Sales Engineer Polysomnogram Report Study name: None Report date: 12/01/2016 Study date: 11/30/2016 Referring Physician: Reji Joe M.D. Name: JO-ANN MCKNIGHT Interpreting Physician: Reji Joe M.D. Date of : 1945 Hvac Sales Engineer: Tania Terrazas [facility]. Sex: Male Age: 70 Study Type: PSG PAP Weight: 243 lbs Height: 70 years, Height 5' 7.75" BMI: 37.22 Medications: AMLODIPINE 10 MG, ATROVASTATIN 40 MG, AUGMENTIN, CITALOPRAM 20 MG, CLOBETASOL PROPIONATE EX OINT, LEVOTHYROXINE 125 MCG, METFORMIN 1000 MG, ONE TOUCH SYSTEM, POLUETHYLENE GLYCOL, PREDNISONE 20 MG, WARFARIN 4 MG, ZOSTAVAX 53918 UNIT/0.65 ML, ZYRTEC 10 MG Patient History 70 yr-old male here for a CPAP update study. He is currently on 13 CMH2O on CPAP. He wears it every night and has no problems with treatment. He has been experiencing more daytime sleepiness. He is back to assess his pressure settings. His Linn scale is 6. The test was started on room air and 4 CMH2O. ETCO2 testing was not utilized during this study. Room 1 Parameters Monitored NPSG: E1-M2, E2-M1, Fp1-M2, Fp2-M1, F3-M2, F4-M2, F4-M1, C3-M2, C4-M2, C4-M1, O1-M2, O2-M2, O2-M1, T3-M2, T4-M1, P3-M2, P4-M1, CHIN1, CHIN2, HR, EKG, Legs, PFLOW, SNOR, FLOW, CFLOW, Tidal Volume, THOR, ABDO, SpO2, PLTH, CPRESS, ETCO2 Wave, ETCO2, pH Sleep Architecture Sleep Stages Time at Lights Off 10:49:25 PM STAGES Time (min.) TST (%) Time at Lights On 5:30:25 AM Wake 87.0 -- Total Recording Time (TRT) 401.00 min. N1 52.5 17 Total Sleep Period (TSP) 378.0 min. N2 224.5 71 Total Sleep Time (TST) 314.0min. N3 31.0 10 Awake Time 87.0 min. REM 6.0 2 Wake after Sleep Onset 64.0 min. Sleep Efficiency (SE) 78 % Sleep Onset Latency (JAEL) 23.0 min. Number of Stage 1 Shifts None Awakenings 17 Stage Changes 97 Number of REM periods 1 REM 6.0 2 REM Latency 315.5 min. NREM 308.0 98 Body Position Analysis Supine Right Left Side Prone Vertical Total Sleep Time (min.) 228.4 146.4 0.0 146.38 0.0 0.0 Total Sleep Time (%) 53% 47% 0% 47 0% N/A% Total Sleep Time REM (min.) 6.0 0.0 0.0 None 0.0 0.0 Total Sleep Time NREM (min.) 161.6 146.4 0.0 None 0.0 0.0 Intermittent Wake (min.) 60.8 26.2 0.0 None 0.0 0.0 Total Sleep Period (%) 54% None None None None None Arousals Myoclonus (PLM) * Events Count Index Events Count Index Spontaneous 28 5 Events Awake (PLMW) 102 70.3 Respiratory 19 4.2 Events Asleep w/ Arousal (PLMA) 18 3.4 PLM 18 3 Events Asleep w/o Arousal (PLMS) 325 62.1 Snoring 2 0 Total Asleep 343 65.5 Total 66 13 Total 445 67 Respiratory Analysis * CA OA MA CH H RERA Total Count 2 11 1 0 38 10 52 Index 0.4 2.1 0.2 0 7.3 2 11.8 Mean Duration 14.5 16.5 16.3 0.00 20.0 19.8 19.1 Longest Duration 17.6 21.6 16.3 0.00 16.3 23.6 39.3 Respiratory Event Summary Total Supine ~Supine Right Left Prone REM NREM Apneas Count 14 7 7 7 N/A N/A 1 13 Index 2.7 3 3 2.9 N/A N/A 10 3 Hypopneas (4% Desat) Count 38 31 7 7 N/A N/A 0 38 Index 7.3 11.1 3 2.9 N/A N/A 0.0 7.4 Apneas & All Hypopneas Count 52 38 14 14 N/A N/A 1 51 Index 9.9 14 6 6 N/A N/A 10.0 9.9 Respiratory Events (Cleat Layer+All Hyp+RERA) Count 52 41 21 21 N/A N/A 1 51 Index 11.8 15 9 8.6 N/A N/A 20.0 11.7 Respiratory Related Arousal Count 19 41 12 12 N/A N/A 1 21 Index 4.2 4 5 5 N/A N/A 10 4 Snoring Analysis Supine Right Left Prone REM NREM Total Snore duration 13.9 min Snores count 238 254 N/A N/A 21 471 492 Snore mean duration 1.7 Sec Snores index 85 104 N/A N/A 210.0 91.8 94.0 TST with snoring (%) 4.4% Desaturation Event Summary: Minimum %SpO2 Event Count Mean/Min/Max Duration(sec.) Desaturation Index % Time In Bed > 90 55 30.7 / 10.5 / 60.0 15.6 54.3 86 - 90 21 28.5 / 10.5 / 53.8 7.9 40.9 81 - 85 0 N/A 0.0 4.7 76 - 80 0 N/A 0.0 0.0 71 - 75 0 N/A 0.0 0.0 66 - 70 0 N/A 0.0 0.0 61 - 65 0 N/A 0.0 0.0 56 - 60 0 N/A 0.0 0.0 51 - 55 0 N/A 0.0 0.0 < 50 0 N/A 0.0 0.0 Total REM NREM Awake <50% 0.0 min. 0.0 min. 0.0 min. 0.0 min. 51 - 60% 0.0 min. 0.0 min. 0.0 min. 0.0 min. 61 - 70% 0.0 min. 0.0 min. 0.0 min. 0.0 min. 71 - 80% 0.0 min. 0.0 min. 0.0 min. 0.0 min. 81 - 90% 178.3 min. 0.6 min. 138.4 min. 39.3 min. 91 - 100% 212.1 min. 5.4 min. 167.7 min. 39.0 min. Average 91 93 91 91 Minimum SpO2 82 89 83 82 Desaturation Event Index 9.3 10.0 9.5 8.3 # Desat. Events below 89% 35 N/A 31 4 Time(%) with Saturation below 89% 14.3 0.0 12.0 2.3 Time(min.) with Saturation below 89% 55.9 0.0 46.8 9.1 Time (mins) REM (mins) NREM (mins) % of TST SpO2 Below 90% 48 1 N47 28.6 SpO2 Below 88% 15 0 0 8 Heart Rate Analysis Min (bpm) Max (bpm) Average (bpm) Awake 53 79 62 NREM 36 127 59 REM 51 58 54 Overall 36 127 58 Supplemental O2 Values Minimum O2 level: None Value Start Time End Time Hvac Sales Engineer Comments Mr. Mcknight slept in the right, left, and supine positions. No cardiac arrhythmias were noted. PLMs were noted. No bruxism noted. CPAP was initiated at +4 CMH2O and up-titrated to a level of +16 CMH2O, Cflex 2. He continued to have hypopneas and apneas at this pressure, so he was switched to BiPAP at +18/14 CMH2O and up-titrated to a level of +20/16 CMH2O Biflex 2. A Mirage Quattro full face mask size medium from [employer] was used during titration He awoke to use the restroom one time during the night. Mr. Mcknight stated that he slept about the same as usual. The final report will be interpreted and signed by a sleep physician. The completed physician report will then be placed in the patient medical record. Therapy Event: Therapy (cm H20) 4 6 8 10 12 14 16 18/14 20/16 Total Time at Pressure (min.) 45.9 13.6 126.6 32.1 27.7 45.0 49.7 14.2 46.2 TST at Pressure (min.) 19.4 13.1 96.6 30.6 26.8 41.9 35.2 13.2 37.2 # Periods 1 1 1 1 1 1 1 1 1 Sleep Onset (min.) 23.0 0.0 0.0 0.0 0.0 0.6 0.0 0.0 0.0 REM Onset (min.) N/A N/A N/A N/A N/A N/A 47.6 0.0 N/A Sleep Efficiency % 42 96 76 95 96 93 70 93 80 Wakefulness (%) 57.7 3.7 23.7 4.7 3.3 6.9 29.2 7.0 19.5 Wakefulness (min.) 26.5 0.5 30.0 1.5 0.9 3.1 14.5 1.0 9.0 NREM 1 (%) 18.5 36.8 6.7 10.9 7.2 11.1 16.1 10.5 22.8 NREM 1 (min.) 8.5 5.0 8.5 3.5 2.0 5.0 8.0 1.5 10.5 NREM 2 (%) 23.8 59.5 49.1 84.4 89.5 70.9 50.5 55.1 57.7 NREM 2 (min.) 10.9 8.1 62.1 27.1 24.8 31.9 25.1 7.8 26.7 NREM 3 (%) 0.0 0.0 20.5 0.0 0.0 11.1 0.0 0.0 0.0 NREM 3 (min.) 0.0 0.0 26.0 0.0 0.0 5.0 0.0 0.0 0.0 REM (%) 0.0 0.0 0.0 0.0 0.0 0.0 4.2 27.3 0.0 REM (min.) 0.0 0.0 0.0 0.0 0.0 0.0 2.1 3.9 0.0 # Arousals 11 7 7 14 4 6 5 3 9 Arousal Index 34.0 32.1 4.3 27.4 9.0 8.6 8.5 13.6 14.5 # Snore 122 23 133 36 49 30 26 43 30 Snore Index 376.9 105.6 82.6 70.6 109.7 43.0 44.3 194.9 48.4 AHI 18.5 9.2 5.6 25.5 20.2 5.7 5.1 13.6 4.8 AHI Supine 0.0 N/A 12.6 25.5 20.2 20.5 5.1 13.6 5.9 AHI Non-Supine 22.6 9.2 3.9 N/A N/A 1.8 N/A N/A 0.0 NREM AHI 18.5 9.2 5.6 25.5 20.2 5.7 5.4 12.8 4.8 REM AHI N/A N/A N/A N/A N/A N/A 0.0 15.4 N/A RDI 27.8 18.4 6.2 27.4 20.2 5.7 6.8 18.1 6.5 # Obstructive 2 1 2 2 0 1 1 1 1 # Central Ap 0 0 0 0 0 1 0 0 1 # Mixed 0 0 1 0 0 0 0 0 0 # Hypopneas 4 1 6 11 9 2 2 2 1 RERAS 3 2 1 1 0 0 1 1 1 Total Respiratory Events 9 4 10 14 9 4 4 4 4 Time Below SpO2 89.00% (min.) 3.2 6.4 27.5 6.1 3.4 0.0 0.0 0.2 0.1 Mean NREM SpO2 (%) 90 88 89 90 91 92 92 92 92 Mean REM SpO2 (%) N/A N/A N/A N/A N/A N/A 93 93 N/A Mean Sleep SpO2 (%) 90 88 89 90 91 92 92 92 92 Min NREM SpO2 (%) 86 84 83 83 83 89 90 88 88 Min REM SpO2 (%) N/A N/A N/A N/A N/A N/A 89 90 N/A Position Supine (min.) 3.5 0.0 19.1 30.6 26.8 8.8 35.2 13.2 30.4 Position Non-supine (min.) 15.9 13.1 77.5 0.0 0.0 33.1 0.0 0.0 6.8 LM Index Sleep 55.6 68.9 65.8 78.4 67.2 33.0 54.5 77.0 100.1 LM Index NREM 55.6 68.9 65.8 78.4 67.2 33.0 54.3 89.9 100.1 LM Index REM N/A N/A N/A N/A N/A N/A 56.9 46.3 N/A Mean Heart Rate (bpm) 59 61 62 58 58 58 55 54 56 Min Heart Rate (bpm) 52 43 36 52 51 52 51 50 51
--- NOTE | 2016-12-03 07:40 | POLYSOMNOGRAPH REPORT ---
CLINICAL DATA: A 70-year-old male with BMI of 37.2, referred by Dr. Menendez for evaluation of CPAP. He is on 13 cm of water CPAP and wears it every night. He has been having more daytime sleepiness and is back to assess his pressure settings. His [place] sleepiness score is 6/24. SLEEP ARCHITECTURE: Total sleep period was 378 minutes. Total sleep time was 314 minutes divided between 308 minutes of non-REM sleep and 6 minutes of REM sleep. Sleep onset latency was 23 minutes. REM latency was 315.5 minutes. Sleep efficiency was 78%. Wake after sleep onset was 64 minutes. Sleep consisted of stage N1 17%, N2 71%, N3 10%, REM 2%. AROUSAL DATA: 66 arousals were recorded for an index of 13 per hour. PERIODIC LIMB MOVEMENT DATA: Markedly elevated limb movements during sleep were noted. There were 343 limb movements during sleep noted for an index of 65.5 per hour with arousal index of 3.4 per hour. RESPIRATORY DATA: AHI was 9.9. There were 2 central, 11 obstructive, and 1 mixed apneic episodes. The longest duration of apnea was 21.6 seconds. There were 38 hypopneic episodes. The mean duration of hypopnea was 20 seconds. OXIMETRY DATA: Nocturnal hypoxemia was seen. Oxygen dion was 82% during non-REM sleep. The mean saturation was 91%. Time below 88% was 15 minutes. EKG: Heart rates ranged from 36-127 beats per minute. No arrhythmias were noted. IT QUALITY ANALYST'S COMMENTS AND TREATMENT SUMMARY: The patient used a Mirage Quattro full face mask, size medium from [employer]. He was started at CPAP 4 cm of water pressure and was titrated up to 16 cm water pressure. Because of persistent apneic episodes, he was then switched to BiPAP 18/14 and eventually 20/16. He did reasonably well at both 14 and 16 cm of water CPAP with an AHI of approximately 5 at each pressure level. It is uncertain whether he will be able to tolerate high pressure BiPAP settings since his last pressure setting was only used for 37 minutes. IMPRESSION: Obstructive sleep apnea/hypopnea with a repeat CPAP titration study showing persistent sleep apnea in spite of higher pressures utilized both with CPAP and BiPAP. His AHI was acceptable at 14 cm of water pressure and 16 cm of water pressure. RECOMMENDATIONS: I would recommend that the patient's CPAP be changed to either 14 or 16 cm of water pressure with follow up with compliance and effectiveness data after 3 months' of use. MTDD
== END | disposition home or self-care (01) ==
LOC: C.NEUR 20:00
PROVIDERS: ATTEND Internal Medicine Geriatric Medicine
DX: G47.30 Sleep apnea, unspecified (principal); E11.9 Type 2 diabetes mellitus without complications; Z79.01 Long term (current) use of anticoagulants; I10 Essential (primary) hypertension; D46.9 Myelodysplastic syndrome, unspecified; N40.1 Benign prostatic hyperplasia with lower urinary tract symptoms; R32 Unspecified urinary incontinence

== ENCOUNTER → 2016-12-07 | Outpatient (CLI) | payer OTHER ==
[2016-12-07 12:24] LABS: BASO % 0.8 %; BASO ABS # 0.03 K/uL (0-0.2); COMPLETE YES; EOS % 4.4 %; HEMATOCRIT 39.4 % (42-52); LYMPH % 30.1 %; LYMPH ABS # 1.16 K/uL (1.2-3.4); MEAN CELL VOLUME 82.1 fL (80-100); MEAN CORPUSCULAR HEMOGLOBIN 28.3 pg (25-34); MEAN CORPUSCULAR HGB CONC 34.5 g/dl (32-36); MEAN PLATELET VOLUME 10.7 fL (7.4-10.4); MONO % 6.2 %; NEUT % 58.5 %; PLATELET COUNT 113 K/uL (130-400); WHITE BLOOD COUNT 3.85 K/uL (4.8-10.8)
[2016-12-07 12:52] LABS: ESTIMATED AVERAGE GLUCOSE 157 mg/dl; HA1C FLAG Normal (Normal)
[2016-12-07 13:21] LABS: BLOOD UREA NITROGEN 15 mg/dl (7-18); BUN/CREATININE RATIO 12.6 (10-20); CARBON DIOXIDE 29 mmol/L (21-32); CHLORIDE 104 mmol/L (98-107); GLUCOSE 225 mg/dl (70-99); POTASSIUM 3.6 mmol/L (3.5-5.1); SODIUM 140 mmol/L (136-145); URIC ACID 8.9 mg/dl (2.6-7.2)
[2016-12-07 13:26] LABS: CALCIUM 8.7 mg/dl (8.5-10.1)
== END | disposition home or self-care (01) ==
LOC: C.LABPBG 10:33
PROVIDERS: ATTEND Internal Medicine Geriatric Medicine
DX: R32 Unspecified urinary incontinence (principal); I10 Essential (primary) hypertension; E11.9 Type 2 diabetes mellitus without complications; M54.16 Radiculopathy, lumbar region; M10.9 Gout, unspecified

== ENCOUNTER → 2017-02-15 | Outpatient (CLI) | payer OTHER ==
[~2017-02-15] MED LIST changes: -ATOR-54 PO; -ENOX40IN SQ; -HYDR25TA4 PO; -LEVO112T2 PO; -OXYC-57 PO; -PRED20TA PO; -VALA1TAB2 PO
[2017-02-15 12:17] LABS: BASO % 0.7 %; BASO ABS # 0.03 K/uL (0-0.2); COMPLETE YES; EOS % 2.7 %; HEMATOCRIT 39.3 % (42-52); IG% 0.2 %; LYMPH % 36.9 %; MEAN CORPUSCULAR HEMOGLOBIN 28.5 pg (25-34); MEAN CORPUSCULAR HGB CONC 35.1 g/dl (32-36); MEAN PLATELET VOLUME 10.4 fL (7.4-10.4); MONO % 8.1 %; NEUT % 51.4 %; PLATELET COUNT 119 K/uL (130-400); RED BLOOD COUNT 4.85 M/uL (4.7-6.1); WHITE BLOOD COUNT 4.07 K/uL (4.8-10.8)
[2017-02-15 12:36] LABS: ESTIMATED AVERAGE GLUCOSE 163 mg/dl; HA1C FLAG Normal (Normal)
[2017-02-15 12:43] LABS: BLOOD UREA NITROGEN 17 mg/dl (7-18); BUN/CREATININE RATIO 15.3 (10-20); CARBON DIOXIDE 31 mmol/L (21-32); CHLORIDE 102 mmol/L (98-107); GLUCOSE 198 mg/dl (70-99); POTASSIUM 3.7 mmol/L (3.5-5.1); SODIUM 138 mmol/L (136-145)
[2017-02-15 12:53] LABS: THYROID STIMULATING HORMONE 0.193 uIu/ml (0.300-4.500)
== END | disposition home or self-care (01) ==
LOC: C.LAB1850 11:17
PROVIDERS: ATTEND Internal Medicine Geriatric Medicine
DX: I10 Essential (primary) hypertension (principal); E11.9 Type 2 diabetes mellitus without complications; D72.819 Decreased white blood cell count, unspecified; E03.9 Hypothyroidism, unspecified; M10.9 Gout, unspecified

== ENCOUNTER → 2017-03-11 | Outpatient (CLI) | payer OTHER | END | disposition home or self-care (01) | LOC: C.LABPBG 13:39 | PROVIDERS: ATTEND Internal Medicine Geriatric Medicine | DX: E03.9 Hypothyroidism, unspecified (principal) ==

== ENCOUNTER → 2017-04-13 | Day surgery (SDC) | payer OTHER ==
[2017-03-30 10:09] VITALS: Ht 172.7 cm; Wt 108.6 kg
[~2017-04-13] VITALS: Ht 172.7 cm; Wt 108.6 kg
[~2017-04-13] MED LIST changes: -ACET325T96 PO; +ATOR-54 PO; +ENOX40IN SQ; -HYDR12.55 PO; +HYDR25TA4 PO; +LEVO112T2 PO; -LEVO125T72 PO; +LIDOCAINE HCL 2% 2 ML VIAL (20MG/ML) ONE; -LPT/40 PO; +MIDAZOLAM HCL 1 MG/ML 2ML VIAL ONE; +ONDANSETRON INJ 2 MG/ML 2 ML VIAL ONE; +OXYC-57 PO; +PRED20TA PO; +PROPOFOL IV EMULSION 10 MG/ML 20 ML VIAL IV ONE; +SODIUM CHLORIDE 0.9% 500ML 500 ML IV ONE; +VALA1TAB2 PO
--- NOTE | 2017-04-13 08:38 | Endo History and Physical ---
History & Physical Date of Service: Apr 13, 2017. Chief Complaint: Screening Referring Physician: Dr. Clay Menendez History of Present Illness 71 yo CM who presents for screening colonoscopy. Past Medical History Diabetes, Arthritis, Pulmonary Emboli, High Cholesterol, Sleep Apnea, Hypertension, Thrombophlebitis, Thyroid Disease, Depression Past Surgical History Hx Cardiac Surgery: No Hx Internal Defibrillator: No Hx Pacemaker: No Hx Abdominal Surgery: No Hx of Implantable Prosthesis: No Hx Post-Op Nausea and Vomiting: No Hx Cancer Surgery: No Hx Thoracic Surgery: No Hx Orthopedic: Yes (LT/RT CTR, LT RCR) Hx Urinary Tract Surgery: Yes (HYDROCELE REPAIR) Family History None Social History Smoking Status: Former Smoker Hx Substance Use: No Hx Alcohol Use: No Allergies Coded Allergies: Etodolac (Verified Allergy, Intermediate, HAND SWELLING, 03/30/17) Current Medications Reported Home Medications Medications Dose Route/Sig Max Daily Dose Days Date Category Dose Instructions Lovenox (Enoxaparin Sodium) 40 Mg/0.4 Ml Inj 40 Mg SQ DAILY 04/13/17 Reported Valtrex (Valacyclovir Hcl) 1 Gm Tab 2 Tabs PO BID PRN 03/30/17 Reported Prednisone 20 Mg Tab 1 Tab PO UD PRN 03/30/17 Reported Percocet 5MG/325MG (Oxycodone/Acetaminophen) Tab 1-2 Tablets PO Q4H PRN 03/30/17 Reported PAIN Hctz (Hydrochlorothiazide) 25 Mg Tab 0.5 Tab PO BID 03/30/17 Reported Synthroid (Levothyroxine Sodium) 112 Mcg Tab 112 Mcg PO QAM 03/30/17 Reported Lipitor (Atorvastatin) 20 Mg Tab 20 Mg PO QPM 03/30/17 Reported Zestril (Lisinopril) 40 Mg Tab 40 Mg PO QPM 12/22/16 Reported Flomax (Tamsulosin Hcl) 0.4 Mg Cap 0.4 Mg PO QAM 10/14/16 Reported Jantoven (Warfarin Sodium) 2 Mg Tab 2 Mg PO WK 01/01/16 Reported THURS Coumadin (Warfarin Sod) 4 Mg Tab 4 Mg PO 6XWK 05/17/15 Reported SUN,MON,TUES,WED,FRI,SAT Glucophage (Metformin Hcl) 1,000 Mg Tab 1,000 Mg PO BID 01/03/15 Reported Citalopram Hydrobromide (Citalopram) 20 Mg Tab 20 Mg PO QPM 01/03/15 Reported Amlodipine Besylate 10 Mg Tab 10 Mg PO QPM 01/03/15 Reported Vital Signs Weight (Kilograms): 108.64 Height (Feet): 5 Height (Inches): 8 Date Time Temp Pulse Resp B/P (MAP) Pulse Ox O2 Delivery O2 Flow Rate FiO2 04/13/17 08:28 36.7 63 18 122/77 (92) 94 Room Air Physical Exam General Appearance: WD/WN, no apparent distress Respiratory/Chest: Auscultation: breath sounds normal Cardiovascular: Heart Auscultation: RRR Abdomen: Bowel Sounds: normal Inspection & Palpation: soft, non-distended, no tenderness, guarding & rebound Assessment and Plan Assessment: 71 yo CM who presents for screening colonoscopy. Plan: Proceed with colonoscopy.
--- NOTE | 2017-04-13 09:00 | Discharge Instructions ---
Endoscopy Patient Instructions Date / Procedure(s) Performed Apr 13, 2017. Colonoscopy Allergy Information Coded Allergies: Etodolac (Verified Allergy, Intermediate, HAND SWELLING, 03/30/17) Discharge Date / Findings Apr 13, 2017. Colon polyps Diverticulosis Internal hemorrhoids Medication Instructions Stopped Medication(s): Patient was told to hold coumadin and metformin for procedure today. OK to resume all medications today as prescribed Reported Home Medications Medications Dose Route/Sig Max Daily Dose Days Date Category Dose Instructions Lovenox (Enoxaparin Sodium) 40 Mg/0.4 Ml Inj 40 Mg SQ DAILY 04/13/17 Reported Valtrex (Valacyclovir Hcl) 1 Gm Tab 2 Tabs PO BID PRN 03/30/17 Reported Prednisone 20 Mg Tab 1 Tab PO UD PRN 03/30/17 Reported Percocet 5MG/325MG (Oxycodone/Acetaminophen) Tab 1-2 Tablets PO Q4H PRN 03/30/17 Reported PAIN Hctz (Hydrochlorothiazide) 25 Mg Tab 0.5 Tab PO BID 03/30/17 Reported Synthroid (Levothyroxine Sodium) 112 Mcg Tab 112 Mcg PO QAM 03/30/17 Reported Lipitor (Atorvastatin) 20 Mg Tab 20 Mg PO QPM 03/30/17 Reported Zestril (Lisinopril) 40 Mg Tab 40 Mg PO QPM 12/22/16 Reported Flomax (Tamsulosin Hcl) 0.4 Mg Cap 0.4 Mg PO QAM 10/14/16 Reported Jantoven (Warfarin Sodium) 2 Mg Tab 2 Mg PO WK 01/01/16 Reported THURS Coumadin (Warfarin Sod) 4 Mg Tab 4 Mg PO 6XWK 05/17/15 Reported SUN,MON,TUES,WED,FRI,SAT Glucophage (Metformin Hcl) 1,000 Mg Tab 1,000 Mg PO BID 01/03/15 Reported Citalopram Hydrobromide (Citalopram) 20 Mg Tab 20 Mg PO QPM 01/03/15 Reported Amlodipine Besylate 10 Mg Tab 10 Mg PO QPM 01/03/15 Reported Provider Instructions Activity Restrictions - No exercising or heavy lifting for 24 hours. - Do not drink alcohol the day of the procedure. - Do not drive a car or operate machinery until the day after the procedure. - Do not make any important decisions or sign important papers in 24 hours after the procedure. Following Day: - Return to full activity which may include returning to work/school. Diet Start your diet with liquids and light foods (jello, soup, juice, toast). Then eat your usual diet if not nauseated. Treatment For Common After Affects For mild abdominal pain, bloating, or excessive gas: - Rest - Eat lightly - Lie on right side Follow-Up Information Follow-up with Dr. Clay Menendez as scheduled Anesthesia Information What You Should Know You have had a procedure that required some medicine to reduce anxiety and discomfort. This treatment is called moderate sedation. After receiving the treatment, you may be sleepy, but you will be able to breathe on your own. The effects of the treatment may last for several hours. Follow these instructions along with Activity/Diet recommendations noted above: * Do NOT do anything where dizziness or clumsiness would be dangerous. * Rest quietly at home today, then you can be up and about tomorrow. * Have a responsible person stay with you the rest of today. * You may have had an I.V. today. If so, you may take the dressing off later today. Recommendations Call your doctor if: * Trouble breathing * Continuous vomiting for more than 24 hours * Temperature above 101 degrees * Severe abdominal pain or bloating * Pain not relieved by pain medicine ordered * There is increased drainage or redness from any incision * A large amount of rectal bleeding greater than 2-3 tablespoons. (If you had a polyp/s removed or have hemorrhoids, a small amount of blood - from the rectum is to be expected.) * You have any unanswered questions or concerns. IN THE EVENT OF A SERIOUS EMERGENCY, GO TO THE NEAREST EMERGENCY ROOM Your discharge instructions were prepared by provider Vinicius Escudero. Patient Instructions Signature Page Anthony Mcknight Patient (or Guardian) Signature/Date: I have read and understand the instructions given to me by my caregivers. Caregiver/RN/Doctor Signature/Date: The above-named patient and/or guardian has received patient instructions on this date. + Original Patient Signature Page (only) stays with chart. Please make copy for patient.
--- NOTE | 2017-04-13 09:04 | GI REPORT ---
Procedure Date: 04/13/2017 8:17 AM Procedure: Colonoscopy Indications: Screening for colorectal malignant neoplasm Medicines: Monitored Anesthesia Care Complications: No immediate complications. Estimated Blood Loss: Estimated blood loss: none. Procedure: Pre-Anesthesia Assessment: - Prior to the procedure, a History and Physical was performed, and patient medications and allergies were reviewed. The patient's tolerance of previous anesthesia was also reviewed. The risks and benefits of the procedure and the sedation options and risks were discussed with the patient. All questions were answered, and informed consent was obtained. Prior Anticoagulants: The patient has taken Coumadin (warfarin), last dose was 4 days prior to procedure. ASA Grade Assessment: III - A patient with severe systemic disease. After reviewing the risks and benefits, the patient was deemed in satisfactory condition to undergo the procedure. After I obtained informed consent, the scope was passed under direct vision. Throughout the procedure, the patient's blood pressure, pulse, and oxygen saturations were monitored continuously. The Scope was introduced through the anus and advanced to the terminal ileum. The colonoscopy was performed without difficulty. The patient tolerated the procedure well. The quality of the bowel preparation was good. The terminal ileum, ileocecal valve, appendiceal orifice, and rectum were photographed. Findings: The perianal and digital rectal examinations were normal. Two sessile polyps were found in the transverse colon and in the ascending colon. The polyps were 4 to 6 mm in size. These polyps were removed with a hot snare. Resection and retrieval were complete. Multiple small-mouthed diverticula were found in the sigmoid colon. Non-bleeding internal hemorrhoids were found during retroflexion. The hemorrhoids were small. Impression: - Two 4 to 6 mm polyps in the transverse colon and in the ascending colon, removed with a hot snare. Resected and retrieved. - Diverticulosis in the sigmoid colon. - Non-bleeding internal hemorrhoids. Recommendation: - Resume previous diet. - Continue present medications. - Repeat colonoscopy for surveillance based on pathology results. - Return to primary care physician as previously scheduled. Vinicius Escudero DO 04/13/2017 9:03:49 AM This report has been signed electronically. Note Initiated On: 04/13/2017 8:17 AM I attest to the content of the Intraoperative Record and orders documented therein, exceptions below
--- NOTE | 2017-04-13 09:32 | Anesthesiology Progress Note ---
Anesthesia Post Op Note Date & Time Apr 13, 2017 at 09:32 Vital Signs Pain Intensity: 0 Vital Signs Past 12 Hours Date Time Temp Pulse Resp B/P (MAP) Pulse Ox O2 Delivery O2 Flow Rate FiO2 04/13/17 09:20 63 18 120/69 (86) 99 Room Air 04/13/17 09:10 63 18 109/68 (82) 99 Room Air 04/13/17 09:05 65 18 82/52 (62) 95 Room Air 04/13/17 08:28 36.7 63 18 122/77 (92) 94 Room Air Notes Mental Status: alert / awake / arousable, participated in evaluation Pt Amnestic to Procedure: Yes Nausea / Vomiting: adequately controlled Pain: adequately controlled Airway Patency, RR, SpO2: stable & adequate BP & HR: stable & adequate Hydration State: stable & adequate Anesthetic Complications: no major complications apparent
[2017-04-13 09:36] VITALS: BP 124/80; PULSE 66; O2SAT 98
== END | disposition home or self-care (01) ==
LOC: C.GI 07:42
PROVIDERS: ATTEND Internal Medicine
DX: Z12.11 Encounter for screening for malignant neoplasm of colon (principal); D12.2 Benign neoplasm of ascending colon; K63.5 Polyp of colon; K57.90 Diverticulosis of intestine, part unspecified, without perforation or abscess without bleeding; K64.8 Other hemorrhoids; E03.9 Hypothyroidism, unspecified; I10 Essential (primary) hypertension; E11.9 Type 2 diabetes mellitus without complications; Z79.01 Long term (current) use of anticoagulants; Z86.711 Personal history of pulmonary embolism; Z87.891 Personal history of nicotine dependence

== ENCOUNTER → 2017-05-24 | Outpatient (CLI) | payer OTHER ==
[~2017-05-24] MED LIST changes: +GLIM1TAB2 PO; -LIDOCAINE HCL 2% 2 ML VIAL (20MG/ML) ONE; -MIDAZOLAM HCL 1 MG/ML 2ML VIAL ONE; -ONDANSETRON INJ 2 MG/ML 2 ML VIAL ONE; -PROPOFOL IV EMULSION 10 MG/ML 20 ML VIAL IV ONE; -SODIUM CHLORIDE 0.9% 500ML 500 ML IV ONE
[2017-05-24 17:38] LABS: BASO % 0.5 %; BASO ABS # 0.03 K/uL (0-0.2); COMPLETE YES; EOS % 1.4 %; HEMATOCRIT 41.2 % (42-52); IG% 0.2 %; LYMPH % 23.7 %; LYMPH ABS # 1.39 K/uL (1.2-3.4); MEAN CELL VOLUME 83.9 fL (80-100); MEAN CORPUSCULAR HEMOGLOBIN 28.9 pg (25-34); MEAN CORPUSCULAR HGB CONC 34.5 g/dl (32-36); MEAN PLATELET VOLUME 10.7 fL (7.4-10.4); NEUT % 67.2 %; PLATELET COUNT 117 K/uL (130-400); RED BLOOD COUNT 4.91 M/uL (4.7-6.1); WHITE BLOOD COUNT 5.86 K/uL (4.8-10.8)
[2017-05-24 18:23] LABS: BLOOD UREA NITROGEN 18 mg/dl (7-18); BUN/CREATININE RATIO 14.1 (10-20); CALCIUM 9.1 mg/dl (8.5-10.1); CARBON DIOXIDE 31 mmol/L (21-32); CHLORIDE 99 mmol/L (98-107); CREATININE 1.26 mg/dl (0.60-1.40); GLUCOSE 210 mg/dl (70-99); POTASSIUM 3.7 mmol/L (3.5-5.1); SODIUM 134 mmol/L (136-145)
[2017-05-25 07:07] LABS: ESTIMATED AVERAGE GLUCOSE 174 mg/dl; HA1C FLAG Normal (Normal)
== END | disposition home or self-care (01) ==
LOC: C.LABPBG 11:48
PROVIDERS: ATTEND Internal Medicine Geriatric Medicine
DX: E03.9 Hypothyroidism, unspecified (principal); I10 Essential (primary) hypertension; D72.819 Decreased white blood cell count, unspecified

== ENCOUNTER → 2017-08-04 | Outpatient (CLI) | payer OTHER ==
[2017-08-04 09:42] LABS: INR 1.1 (0.9-1.1)
== END | disposition home or self-care (01) ==
LOC: C.LAB 08:24
PROVIDERS: ATTEND Anesthesiology
DX: Z01.818 Encounter for other preprocedural examination (principal)

== ENCOUNTER → 2017-08-27 | Outpatient (CLI) | payer OTHER ==
[~2017-08-27] MED LIST changes: +WARF-283 PO
[2017-08-27 17:24] LABS: BASO % 0.4 %; BASO ABS # 0.02 K/uL (0-0.2); EOS % 1.4 %; EOS ABS # 0.07 K/uL (0-0.5); HEMOGLOBIN 14.4 g/dL (14.0-18.0); IG# 0.01 K/uL (0.00-0.02); LYMPH % 24.5 %; LYMPH ABS # 1.24 K/uL (1.2-3.4); MEAN CELL VOLUME 83.8 fL (80-100); MEAN CORPUSCULAR HEMOGLOBIN 28.7 pg (25-34); MEAN CORPUSCULAR HGB CONC 34.3 g/dl (32-36); MEAN PLATELET VOLUME 10.7 fL (7.4-10.4); MONO % 6.5 %; MONO ABS # 0.33 K/uL (0.11-0.59); NEUT ABS # 3.39 K/uL (1.4-6.5); PLATELET COUNT 95 K/uL (130-400); RED CELL DISTRIBUTION WIDTH CV 13.5 % (11.5-14.5); RED CELL DISTRIBUTION WIDTH SD 40.9 fL (36.4-46.3); WHITE BLOOD COUNT 5.06 K/uL (4.8-10.8)
[2017-08-27 17:38] LABS: BLOOD UREA NITROGEN 22 mg/dl (7-18); CALCIUM 8.8 mg/dl (8.5-10.1); CARBON DIOXIDE 28 mmol/L (21-32); CREATININE 1.27 mg/dl (0.60-1.40); GLUCOSE 145 mg/dl (70-99); POTASSIUM 3.8 mmol/L (3.5-5.1); SODIUM 138 mmol/L (136-145)
[2017-08-27 17:42] LABS: CHOLESTEROL 108 mg/dl (0-200); LDL CHOLESTEROL CALCULATED 29 mg/dl
[2017-08-28 06:28] LABS: HEMOGLOBIN A1C 6.6 % (4.5-5.6)
== END | disposition home or self-care (01) ==
LOC: C.LABPBG 13:37
PROVIDERS: ATTEND Internal Medicine Geriatric Medicine
DX: I10 Essential (primary) hypertension (principal); E11.9 Type 2 diabetes mellitus without complications; D69.6 Thrombocytopenia, unspecified; D46.9 Myelodysplastic syndrome, unspecified; E78.5 Hyperlipidemia, unspecified

== ENCOUNTER → 2017-10-13 | Outpatient (CLI) | payer OTHER ==
[~2017-10-13] MED LIST changes: -WARF2TAB8 PO
--- NOTE | 2017-10-13 15:00 | DIAGNOSTIC IMAGING REPORT ---
CHEST 2 VIEWS ROUTINE CLINICAL HISTORY: R06.09 Exertional [id number] Lower extremity edema COMPARISON STUDY: 10/06/2016 FINDINGS: Mild stable cardiomegaly. Lungs are clear. Diaphragms are smooth. IMPRESSION: Mild stable cardiomegaly. No acute process. The above report was generated using voice recognition software. It may contain grammatical, syntax or spelling errors. Electronically signed by: Josh Main M.D. 10/13/2017 2:59 PM Dictated Date/Time: 10/13/2017 2:58 PM
== END | disposition home or self-care (01) ==
LOC: C.RADBC 14:41
PROVIDERS: ATTEND Nurse Practitioner Adult Health
DX: R06.09 Other forms of dyspnea (principal); R60.0 Localized edema; I51.7 Cardiomegaly

== ENCOUNTER → 2017-10-18 | Outpatient (CLI) | payer OTHER ==
[2017-10-18 17:26] LABS: BASO % 0.9 %; BASO ABS # 0.04 K/uL (0-0.2); EOS % 3.2 %; EOS ABS # 0.14 K/uL (0-0.5); HEMATOCRIT 41.4 % (42-52); HEMOGLOBIN 14.1 g/dL (14.0-18.0); IG# 0.01 K/uL (0.00-0.02); LYMPH % 32.6 %; LYMPH ABS # 1.43 K/uL (1.2-3.4); MEAN CELL VOLUME 83.1 fL (80-100); MEAN CORPUSCULAR HEMOGLOBIN 28.3 pg (25-34); MEAN CORPUSCULAR HGB CONC 34.1 g/dl (32-36); MEAN PLATELET VOLUME 10.2 fL (7.4-10.4); MONO % 9.6 %; MONO ABS # 0.42 K/uL (0.11-0.59); NEUT % 53.5 %; NEUT ABS # 2.34 K/uL (1.4-6.5); PLATELET COUNT 124 K/uL (130-400); RED CELL DISTRIBUTION WIDTH CV 14.2 % (11.5-14.5); RED CELL DISTRIBUTION WIDTH SD 43.1 fL (36.4-46.3); WHITE BLOOD COUNT 4.38 K/uL (4.8-10.8)
[2017-10-18 19:18] LABS: ALBUMIN 3.8 gm/dl (3.4-5.0); ALT/SGPT 23 U/L (12-78); AST/SGOT 14 U/L (15-37); BLOOD UREA NITROGEN 13 mg/dl (7-18); CALCIUM 8.5 mg/dl (8.5-10.1); CARBON DIOXIDE 31 mmol/L (21-32); GLUCOSE 156 mg/dl (70-99); SODIUM 139 mmol/L (136-145)
[2017-10-18 19:21] LABS: ALKALINE PHOSPHATASE 87 U/L (45-117); TOTAL PROTEIN 7.3 gm/dl (6.4-8.2)
== END | disposition home or self-care (01) ==
LOC: C.LABPBG 11:47
PROVIDERS: ATTEND Nurse Practitioner Adult Health
DX: R60.0 Localized edema (principal)

== ENCOUNTER → 2018-01-05 | Outpatient (CLI) | payer OTHER ==
[~2018-01-05] MED LIST changes: -CLX/20 PO; +CYM/30 PO; -NRV/10 PO; +NRV/5 PO
--- NOTE | 2018-01-06 21:49 | POLYSOMNOGRAPH REPORT ---
CLINICAL DATA: A 72-year-old male with BMI of [address] Clay Menendez for an updated titration study. He last had a sleep study in 2017. He is having progressive daytime sleepiness. He does have significant sleep apnea. He currently is on CPAP. SLEEP ARCHITECTURE: Total sleep period was 462 minutes. Total sleep time was 410.5 minutes divided between 390 minutes of non-REM sleep and 20.5 minutes of REM sleep. Sleep onset latency was 7.5 minutes. REM latency was 216.5 minutes. Sleep efficiency was 87%. Wake after sleep onset was 52 minutes. Sleep consisted of stage N1 14%, stage N2 70%, stage N3 10%, and REM 5%. AROUSAL DATA: 43 arousals were recorded for an index of 6 per hour. PLM DATA: 62 limb movements during sleep were noted for an index of 9.1 per hour with arousal index of 1.6 per hour. RESPIRATORY DATA: The AHI was 17.1. There were 3 central and 14 obstructive apneic episodes. The longest duration of apnea was 24.3 seconds. There were 100 hypopneic episodes with a mean duration of 22.4 seconds. OXIMETRY DATA: Nocturnal hypoxemia was seen. Oxygen dion was 82% during REM. Mean saturation was 91%. Time below 88% was 30 minutes. EKG: Heart rates ranged from 63-93 beats per minute. PVCs were noted. CARD BRUSHER'S COMMENTS AND TREATMENT SUMMARY: The patient slept in the right, left, and supine position. CPAP was started at 7 cm of water pressure and was titrated up to eventually 16 cm water pressure. The patient was still having respiratory events and was switched to BiPAP initially 16/10 and eventually up to 22/14. The patient did not have improvement in his sleep apnea (AHI) on BiPAP and actually had worsening of his apnea with institution of BiPAP. He used the medium ResMed Mirage Quattro full face mask. His best AHI was at a CPAP level of 16 cm water pressure, C-Flex setting 1. At that pressure, he slept for 101 minutes with an AHI of 4.7. IMPRESSION: Obstructive sleep apnea with a difficult titration study. The patient was increased to CPAP 16 cm of water pressure and then was switched to BiPAP. However, on BiPAP, he did not have improvement in his AHI. RECOMMENDATIONS: The patient should be considered for an increase in his CPAP to 16 cm water pressure with C-Flex setting #1. He should be seen back in followup within 90 days to document efficacy and compliance. MTDD
== END | disposition home or self-care (01) ==
LOC: C.NEUR 20:00
PROVIDERS: ATTEND Internal Medicine Geriatric Medicine
DX: R53.83 Other fatigue (principal); G47.30 Sleep apnea, unspecified

== ENCOUNTER → 2018-01-11 | Outpatient (CLI) | payer OTHER ==
[~2018-01-11] MED LIST changes: -WARF-283 PO
[2018-01-11 10:15] LABS: BASO % 0.5 %; BASO ABS # 0.02 K/uL (0-0.2); EOS % 4.9 %; EOS ABS # 0.18 K/uL (0-0.5); HEMATOCRIT 40.7 % (42-52); HEMOGLOBIN 13.9 g/dL (14.0-18.0); IG# 0.01 K/uL (0.00-0.02); LYMPH % 38.1 %; LYMPH ABS # 1.41 K/uL (1.2-3.4); MEAN CELL VOLUME 82.9 fL (80-100); MEAN CORPUSCULAR HEMOGLOBIN 28.3 pg (25-34); MEAN CORPUSCULAR HGB CONC 34.2 g/dl (32-36); MEAN PLATELET VOLUME 10.4 fL (7.4-10.4); MONO % 7.8 %; MONO ABS # 0.29 K/uL (0.11-0.59); NEUT % 48.4 %; NEUT ABS # 1.79 K/uL (1.4-6.5); PLATELET COUNT 118 K/uL (130-400); RED CELL DISTRIBUTION WIDTH CV 13.5 % (11.5-14.5); RED CELL DISTRIBUTION WIDTH SD 40.7 fL (36.4-46.3)
[2018-01-11 10:27] LABS: INR 3.3 (0.9-1.1); PTT PATIENT 41.1 SECONDS (21.0-31.0)
[2018-01-11 11:15] LABS: BLOOD UREA NITROGEN 17 mg/dl (7-18); CARBON DIOXIDE 30 mmol/L (21-32); CREATININE 1.23 mg/dl (0.60-1.40); GLUCOSE 194 mg/dl (70-99); POTASSIUM 3.7 mmol/L (3.5-5.1); SODIUM 139 mmol/L (136-145)
== END | disposition home or self-care (01) ==
LOC: C.CPL 09:23
PROVIDERS: ATTEND Orthopaedic Surgery
DX: Z01.818 Encounter for other preprocedural examination (principal); Z01.810 Encounter for preprocedural cardiovascular examination; Z01.812 Encounter for preprocedural laboratory examination

== ENCOUNTER → 2018-01-20 | Day surgery (SDC) | payer OTHER ==
[2018-01-06 11:20] VITALS: BMI 38.0
--- NOTE | 2018-01-10 15:40 | PAT Medication Instructions ---
Service Date Jan 10, 2018. Current Home Medication List Amlodipine Besylate (Amlodipine Besylate), 5 MG PO HS Atorvastatin (Lipitor), 20 MG PO QPM Duloxetine HCl (Cymbalta), 1 CAP PO HS Glimepiride (Glimepiride), 1 TAB PO QAM Hydrochlorothiazide (Hctz), 0.5 TAB PO BID Levothyroxine Sodium (Synthroid), 112 MCG PO QAM Lisinopril (Zestril), 40 MG PO QPM Metformin Hcl (Glucophage), 1,000 MG PO BID Oxycodone/Acetaminophen 5MG/325MG (Percocet 5MG/325MG), 1-2 TABLETS PO Q4H PRN for Pain Prednisone (Prednisone), 1 TAB PO UD PRN for GOUT FLARE-UP Tamsulosin Hcl (Flomax), 0.4 MG PO QAM Valacyclovir Hcl (Valtrex), 2 TABS PO BID PRN for COLD SORES Warfarin Sod (Coumadin), 4-6 MG PO QPM Medication Instructions For Your Scheduled Surgery - Check with surgeon and prescribing physician for instructions: Warfarin Sod (Coumadin), 4-6 MG PO QPM - Continue as directed if needed: Prednisone (Prednisone), 1 TAB PO UD PRN for GOUT FLARE-UP - Hold the following medications the morning of surgery: Glimepiride (Glimepiride), 1 TAB PO QAM Hydrochlorothiazide (Hctz), 0.5 TAB PO BID Metformin Hcl (Glucophage), 1,000 MG PO BID - Take the following medications the morning of surgery with a sip of water: Valacyclovir Hcl (Valtrex), 2 TABS PO BID PRN for COLD SORES Oxycodone/Acetaminophen 5MG/325MG (Percocet 5MG/325MG), 1-2 TABLETS PO Q4H PRN for Pain (okay to take up to 4 hours prior to surgery if needed) Tamsulosin Hcl (Flomax), 0.4 MG PO QAM Levothyroxine Sodium (Synthroid), 112 MCG PO QAM - Take the following medications as scheduled the night before surgery: Valacyclovir Hcl (Valtrex), 2 TABS PO BID PRN for COLD SORES (if needed) Oxycodone/Acetaminophen 5MG/325MG (Percocet 5MG/325MG), 1-2 TABLETS PO Q4H PRN for Pain (if needed) Metformin Hcl (Glucophage), 1,000 MG PO BID Lisinopril (Zestril), 40 MG PO QPM Amlodipine Besylate (Amlodipine Besylate), 5 MG PO HS Atorvastatin (Lipitor), 20 MG PO QPM Duloxetine HCl (Cymbalta), 1 CAP PO HS If you have any questions please call us at [phone] or [phone] or [phone]
[2018-01-11 09:36] VITALS: BMI 38.0
--- NOTE | 2018-01-19 08:06 | HISTORY & PHYSICAL EXAMINATION ---
DATE OF ADMISSION: 01/20/2018 CHIEF COMPLAINT: Medial meniscus tear of the right knee. HISTORY OF PRESENT ILLNESS: Anthony is a 72-year-old male who has several month history of increasing right knee pain. He has been dealing with bilateral knee pain for about a year. I have given him injections, but the right knee has recently got much worse. The last injections have not helped. X-rays do look too bad, so sent for an MRI. MRI showed mild arthritis of his knee, but a medial meniscus tear as well. He gets mostly sharp stabbing pains in the anterior medial aspect of his knee. This is where the meniscus tear was located. He elected to proceed with arthroscopy. PAST MEDICAL HISTORY: Diabetes, hypothyroidism, history of DVT with pulmonary embolism, hyperlipidemia, hypertension. MEDICATIONS: Lipitor, Tylenol, Celexa, hydrochlorothiazide, Synthroid, Zestril, Glucophage, Flomax, Coumadin. PAST SURGICAL HISTORY: Significant for bilateral carpal tunnel releases, hydrocele, and a left shoulder rotator cuff repair in 2016. ALLERGIES: LODINE. FAMILY HISTORY: Significant for heart disease, diabetes, pancreatic cancer. SOCIAL HISTORY: The patient is . Denies any tobacco, alcohol or IV drug use. REVIEW OF SYSTEMS: He complains mostly of right knee pain. All other pertinent review of systems are negative. PHYSICAL EXAMINATION: GENERAL: He is awake, alert and orient x3. He is in no apparent distress. He is very pleasant. HEENT: Pupils equal, round, reactive to light. Extraocular motion intact. Oral mucosa is pink and moist. HEART: Regular rate per radial pulse. LUNGS: Brenna symmetrically bilaterally with no audible breath sounds. ABDOMEN: Soft, nontender, nondistended. MUSCULOSKELETAL: On physical examination of his knee, he has a trace effusion. He has good motion from 0-120 degrees. He has no instability. He has a positive medial Theo's test and pain over the anterior medial joint line, 5/5 muscle strength of leg extension. MRI images do show a questionable far anterior medial meniscus tear. There is also a subchondral cyst in the anterior tibial spine. Some mild arthritis in the medial compartment, but the arthritis does not appear too bad. IMPRESSION: Mild osteoarthritis of the right knee with anterior medial meniscus tear. PLAN: Will proceed with a right knee arthroscopy to include partial meniscectomy. I will also probably do a chondroplasty. Postoperatively, he will be allowed to weightbear as tolerated and will be discharged to home on oral pain medications.
[~2018-01-20] VITALS: Ht 172.7 cm; Wt 113.5 kg
[~2018-01-20] MED LIST changes: +ATROPINE SULFATE 0.1 MG/ML 5ML SYR IV PRN; +BUPIVACAINE 0.5 % 5 MG/1 ML PF 10ML VIAL ONE; +CEFAZOLIN 2000MG IV PUSH 15 ML IV SCH; +DEXAMETHASONE SOD INJ 4 MG/ML VIAL ONE; +EpHEDrine SULFATE INJ 50 MG/ML AMP IV PRN; +FENTANYL CITRATE INJ 50 MCG/1 ML 2 ML VIAL IV PRN; +FENTANYL CITRATE INJ 50 MCG/1 ML 2 ML VIAL ONE; +KETOROLAC TROMETHAMINE 30 MG/ML VIAL ONE; +LACTATED RINGER'S 1000ML 1,000 ML IV SCH; +LIDOCAINE HCL 2% 2 ML VIAL (20MG/ML) ONE; +MIDAZOLAM HCL 1 MG/ML 2ML VIAL ONE; +MoRPHine SULFATE 4 MG/ML 1 ML CARP\\VIAL ONE; +ONDANSETRON INJ 2 MG/ML 2 ML VIAL IV PRN; +ONDANSETRON INJ 2 MG/ML 2 ML VIAL ONE; +OXYCODONE/ACETAMINOPHEN 5-325 TAB ONE; +OXYCODONE/ACETAMINOPHEN 5-325 TAB PO PRN; +PROPOFOL IV EMULSION 10 MG/ML 20 ML VIAL ONE; +ROPIVACAINE 0.5% 5 MG/ML 30 ML VIAL ONE; +ROPIVACAINE 0.5% 5 MG/ML 30 ML VIAL XX ONE; +SODIUM CHLORIDE 0.9% 1000ML 1,000 ML IV SCH
[2018-01-20 11:21] VITALS: BP 125/77; PULSE 80; TEMP 36.7; O2SAT 95; Ht 172.7 cm; Wt 113.5 kg
[2018-01-20 11:57] LABS: INR 1.3 (0.9-1.1); PTT PATIENT 29.1 SECONDS (21.0-31.0)
--- NOTE | 2018-01-20 13:27 | History & Physical Bridge - SC ---
H&P Re-Evaluation Bridge Note: I have examined the patient, reviewed the History & Physical and in the interval since the performance of the History & Physical I have noted the following changes of clinical significance: No changes noted
--- NOTE | 2018-01-20 14:43 | [facility] Post Operative Brief Note ---
Immediate Operative Summary Operative Date Jan 20, 2018. Pre-Operative Diagnosis Medial meniscus tear of the right knee Post-Operative Diagnosis Same as preop with chondrocalcinosis and lateral meniscus tear Procedure(s) Performed Right Knee Arthroscopy with Partial Medial and Lateral Menisectomy, and Chondroplasty Surgeon Dr. Watts Yard Conductor Surgeon(s) Charlie Lopez PA-C Estimated Blood Loss 5 ml Findings Consistent with Post-Op Diagnosis Specimens None per Surgeon Anesthesia Type General
--- NOTE | 2018-01-20 14:53 | Discharge Instructions ---
Discharge Instructions Date of Service Jan 20, 2018. Admission Reason for Admission: Right Knee Medial Meniscus Tear Discharge Discharge Diagnosis / Problem: SAME ABOVE Discharge Goals Goal(s): Decrease discomfort, Improve function, Increase independence Activity Recommendations Activity Limitations: as noted below Lifting Limitations: gradually increase as tolerated Exercise/Sports Limitations: gradually increase as tolerated Shower/Bathe: tomorrow Weightbearing Status: Right weightbearing (as tolerated) . Instructions / Follow-Up Instructions / Follow-Up MEDICATIONS: * Resume previous medications unless instructed otherwise by your surgeon. * Always take pain medication on a full stomach or with food to avoid upset stomach. * Do not drink alcohol or drive while taking narcotics. * Ibuprofen or Tylenol may be taken if narcotic not needed. SPECIAL CARE INSTRUCTIONS: __ None _X_ Keep extremity elevated and iced x 48 hours; apply ice 20-30 minutes 8-10 times/day. May remove at night. _X_ Crutches _X_ May discard when able __ Brace/Post-op shoe __ 24 hrs/day __ Remove at night _X_ Dressing __ Maintain until seen in office, may shower with plastic over site _X_ Remove dressings in 24-48 hours and then may shower _X_ Cover incisions with band-aids after showering __ Do not remove steri-strips Call physician if chills or temperature rises above 102 degrees or pain unrelieved by prescribed pain medications. Office [phone] Current Hospital Diet Patient's current hospital diet: Discharge Diet Recommended Diet: Regular Diet Fluid Restriction: None Procedures Procedures Performed: Right Knee Arthroscopy with Partial Medial and Lateral Menisectomy, and Chondroplasty Pending Studies Studies pending at discharge: no Laboratory Results Hemoglobin A1c Test 11/12/17 14:08 Range/Units Estimated Average Glucose 126 mg/dl Hemoglobin A1c 6.0 H 4.5-5.6 % Medical Emergencies . Who to Call and When: Medical Emergencies: If at any time you feel your situation is an emergency, please call 911 immediately. . Non-Emergent Contact Non-Emergency issues call your: Surgeon Call Non-Emergent contact if: your pain is not controlled, wound has increased drainage, wound has increased redness . "Provider Documentation" section prepared by You Lopez. .
--- NOTE | 2018-01-20 15:01 | OPERATIVE REPORT ---
DATE OF OPERATION: 01/20/2018 PREOPERATIVE DIAGNOSIS: Anterior medial meniscus tear of the right knee with chondromalacia. POSTOPERATIVE DIAGNOSIS: Anterior medial meniscus tear with both anterior and posterior lateral meniscus tears as well as significant chondrocalcinosis throughout the right knee. PROCEDURE: Right knee diagnostic arthroscopy with chondroplasty, partial medial and lateral meniscectomies. SURGEON: Dariusz Watts DO. CONSTRUCTION STONEMASON: You Lopez PA-C, whose assistance was necessary for positioning the leg and help with instrumentation. ANESTHESIA: General. COMPLICATIONS: None. CONDITION: Stable to PACU. INDICATIONS: Anthony is a pleasant 72-year-old male who has been complaining of increasing right knee pain. Most of his pain is located right along the anterior medial meniscus. X-rays done looked too bad. MRI showed some mild arthritis, but with the continued knee pain, we felt it was reasonable to proceed with knee arthroscopy. OPERATION AND FINDINGS: On 01/20/2018, he arrived at [facility] for the above procedure. He was seen in the preoperative holding area, and the operative extremity was identified and signed. He was given a preoperative antibiotic. Taken back to the operating room, laid on table in supine position, and put under general anesthesia. The right knee was then prepped and draped in sterile fashion. Timeout was done. The patient's operative extremity was properly identified. A scope was introduced in the lateral parapatellar portal. Diagnostic arthroscopy did show signs of chondrocalcinosis within the suprapatellar pouch and within the trochlea. There were some grade 3 arthritic changes in the trochlear notch. The scope was brought into the medial compartment. A medial parapatellar portal was made under direct visualization. There was chondrocalcinosis throughout the medial compartment. There was tearing of the anterior medial meniscus. A shaver was used to complete a partial medial meniscectomy and get that meniscus back to stable margins. A probe was used in the medial compartment. I probed the meniscus and the distal femoral condyle with no evidence of any additional pathology. A scope was then brought into the trochlea. ACL and PCL were probed and intact. ACL was brought into the lateral compartment. There was tearing of both the anterior and posterior horns of the lateral meniscus. There was also significant chondrocalcinosis throughout, especially on the tibial plateau. A shaver was used to complete a chondroplasty to remove some of the loose unstable chondrocalcinosis, and the shaver was also used to do a partial lateral meniscectomy. The scope was then placed into the medial parapatellar portal. Repeat diagnostic arthroscopy showed no additional pathology. The leg was brought into full extension. The shaver was used to complete a chondroplasty on the undersurface of the patella and the trochlea. The knee was then irrigated, and portal sites closed with 3-0 nylon. The knee was then injected with 30 mL of Naropin with epinephrine, Toradol, and morphine. He was then placed in a soft compressive dressing, extubated, transferred to a [facility], and taken to postanesthesia care unit in stable condition. He tolerated the procedure well. I attest to the content of the Intraoperative Record and any orders documented therein. Any exception s are noted below.
--- NOTE | 2018-01-20 15:27 | Anesthesiology Progress Note ---
Anesthesia Post Op Note Date & Time Jan 20, 2018 at 15:27 Vital Signs Pain Intensity: 0 Vital Signs Past 12 Hours Date Time Temp Pulse Resp B/P (MAP) Pulse Ox O2 Delivery O2 Flow Rate FiO2 01/20/18 15:20 70 16 128/79 94 Room Air 01/20/18 15:10 70 16 118/74 95 Room Air 01/20/18 15:00 68 16 122/73 99 Oxymask 3 01/20/18 14:51 36.1 75 16 121/67 98 Oxymask 10 01/20/18 11:21 36.7 80 20 125/77 (93) 95 Room Air Notes Mental Status: alert / awake / arousable, participated in evaluation Pt Amnestic to Procedure: Yes Nausea / Vomiting: adequately controlled Pain: adequately controlled Airway Patency, RR, SpO2: stable & adequate BP & HR: stable & adequate Hydration State: stable & adequate Anesthetic Complications: no major complications apparent
[2018-01-20 15:35] VITALS: BP 114/68; PULSE 77; TEMP 36.7; O2SAT 95
== END | disposition home or self-care (01) ==
LOC: C.ACU 10:32
PROVIDERS: ATTEND Orthopaedic Surgery
DX: M23.211 Derangement of anterior horn of medial meniscus due to old tear or injury, right knee (principal); M23.251 Derangement of posterior horn of lateral meniscus due to old tear or injury, right knee; M94.261 Chondromalacia, right knee; M17.11 Unilateral primary osteoarthritis, right knee; E11.9 Type 2 diabetes mellitus without complications; E03.9 Hypothyroidism, unspecified; E78.5 Hyperlipidemia, unspecified; I10 Essential (primary) hypertension; Z79.899 Other long term (current) drug therapy; Z79.84 Long term (current) use of oral hypoglycemic drugs; Z79.01 Long term (current) use of anticoagulants; Z86.718 Personal history of other venous thrombosis and embolism; Z82.49 Family history of ischemic heart disease and other diseases of the circulatory system; Z83.3 Family history of diabetes mellitus; Z80.0 Family history of malignant neoplasm of digestive organs

== ENCOUNTER 2019-09-05 12:51 | Observation (INO) ==
[2019-09-05] MEDS ORDERED: SODIUM CHLORIDE 0.9% 500 ML IV ONE ×2 (14:00→17:39)
--- NOTE | 2019-09-05 14:07 | Emergency Department Note ---
History of Present Illness General Chief complaint: Vertigo Stated complaint: LIGHTHEAD,DIZZY,HEADACHE Time Seen by Provider: 09/05/19 13:49 Source: patient Mode of arrival: ambulatory History of Present Illness Provider complaint: Dizziness Onset (ago): day(s) 3 Location: head Radiation: non-radiation Pain Consistency: + intermittent Maximum Pain Intensity: 2 Relieved By: + none Exacerbated By: + none Associated symptoms: + denies other symptoms Treatments prior to arrival: none This is a 73-year-old male with multiple chronic medical problems who presents today complaining of worsening dizziness over the last 3 weeks. Patient states he has had similar episodes in the past including May 2019 which were attributed to thyroid dysfunction. Patient states he has been compliant with his current thyroid medication. Patient states only other medication change was the stoppage of colchicine by his PCP. Patient states his dizziness feels off balance, denies a sense of room spinning. Patient states intermittently he will feel nauseated and have an accompanying headache with these episodes. Patient states they are worse with sitting up and movement. Patient admits to poor water intake. Patient is currently undergoing treatment for bladder cancer. Patient denies any accompanying chest pain, trouble breathing, fevers, URI symptoms, leg swelling or calf pain. Patient is anticoagulated. Patient denies any recent travel or exposure to a coronavirus positive person. Patient states he has previously seen Dr. Castaneda. He has not seen Dr. Castaneda more recently regarding his dizziness. On review of EMR, patient had CT imaging both without contrast and is in angiography performed of the head and neck within the last 3 months, all of which were reassuring. Home Medications Home Medications Medication Instructions Recorded Confirmed Type valacyclovir 1 gram tablet 2,000 mg PO BID PRN tab 03/29/18 09/05/19 History vitamins A,C,Z-kxsp-atowtp 14,320 1 cap PO QAM 05/25/18 09/05/19 History unit-226 mg-200 unit capsule lancets 33 gauge #100 ea 11/30/18 09/04/19 History finasteride 5 mg tablet 5 mg PO QAM #30 tab 01/02/19 09/05/19 History blood sugar diagnostic #10 ea 03/16/19 09/04/19 History metformin 1,000 mg tablet 1,000 mg PO BID #180 tab 05/26/19 09/05/19 Rx oxycodone-acetaminophen 5 mg-325 1 tab PO Q6H PRN #20 tab 06/05/19 09/05/19 Rx mg tablet atorvastatin 20 mg tablet 20 mg PO QAM #30 tab 06/11/19 09/05/19 Rx amlodipine 5 mg tablet 5 mg PO HS #90 tab 07/10/19 09/05/19 Rx warfarin 4 mg tablet 4 mg PO UD tab 07/10/19 09/05/19 History allopurinol 100 mg PO QAM 08/02/19 09/05/19 History cholecalciferol (vitamin D3) 2,000 unit PO QDD 08/02/19 09/05/19 History [Vitamin D3] cyanocobalamin (vitamin B-12) 2,000 mcg PO QAM 08/02/19 09/05/19 History lisinopril 20 mg PO HS 08/02/19 09/05/19 History tamsulosin [Flomax] 0.4 mg PO QAM 08/02/19 09/05/19 History glimepiride 1 mg tablet 1 mg PO QAM #90 tab 08/06/19 09/05/19 Rx levothyroxine 112 mcg tablet 112 mcg PO QAM #90 tab 08/29/19 09/05/19 Rx citalopram [Celexa] 20 mg PO HS 09/05/19 09/05/19 History meclizine 25 mg PO TID PRN #20 tab 09/05/19 Rx ondansetron 4 mg PO Q8H PRN #14 tab 09/05/19 Rx Allergies Allergy/AdvReac Type Severity Reaction Status Date / Time etodolac Allergy Intermediate HAND Verified 09/05/19 14:48 SWELLING nickel Allergy Mild Rash Verified 09/05/19 14:48 duloxetine [From Cymbalta] AdvReac Intermediate DID NOT Verified 09/05/19 14:48 WORK INTENDED Past Med/Surg History Medical History Bilateral pulmonary embolism Onset: 2014; presumed unprovoked. On extended AC with warfarin through anticoagulation clinic. Deep vein thrombosis (Inactive) Onset: 2014; presumed unprovoked. Complicated with b/l pulmonary emboli. AC with warfarin through anticoagluation clinic. 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 Evaluated by neuro. MRI brain, MRA head and neck negative. Holter monitor negative. Referred to ENT (08/30). Headache History of kidney stones Lumbar spinal stenosis Macular degeneration Psoriasis Solitary pulmonary nodule 1. Stable 6 mm right lower lobe nodule since abdominal CT of November 01, 2012. Stability over this time period is indicative of a benign etiology. 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 Repeat bone marrow biopsy (2013) normal cellular marrow with normal morphology. 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 Monitored q6 mo by Heme/Onc Tubular adenoma of colon Found on screening colonoscopy (03/30) with recommendation of repeat in 5 years (04/04) Vitamin B12 deficiency Vitamin D deficiency Surgical History Difficult airway for intubation Glidescope #4, ETT #8.0 Oral, Grade 2 View, Atraumatic intubation History of bilateral carpal tunnel release History of colonoscopy 03/2017 repeat 5 yrs History of cystoscopy REMOVAL POLYP-CANCER DX History of repair of left rotator cuff 07/12/15 - Glidescope #4, ETT #8.0 Oral, Grade 2 View, Atraumatic intubation, History of tonsillectomy S/P repair of hydrocele Family History Father Family history of diabetes mellitus Diabetes Myocardial infarction Mother Family history of diabetes mellitus Diabetes Hypertension Brother Cancer Other FHx: cancer Denies family history of Ovarian cancer Prostate cancer Breast cancer Lung cancer Colorectal cancer Stroke Social History Preferred Language: Azeri Communication Ability: Effective Visual Impairment: No Limitations Hearing Ability: Use of Hearing Aid [place] [employer] Guide Required: No Beliefs That Will Affect Care: None marital status: Current Living Situation: Spouse current occupational status: retired Feels Safe at Home: Yes Smoking Status: Never smoker Cigarettes Per Day: 1 ppd x 2-3 years ; Second Hand Exposure: No ; Hx Alcohol Use: No Hx Substance Use: No Childhood Exposure to Second-Hand Smoke: Yes caffeine: Yes Dental Care, Regularly: Yes Physical Activity Frequency: Does not Exercise Seatbelt Use: always Sunscreen Use: No Review of Systems See HPI for pertinent positives & negatives. and A total of 10 systems reviewed and were otherwise negative Physical Exam Vital Signs Vital Signs - 24 hr 09/05/19 12:59 09/05/19 13:30 09/05/19 13:40 Temperature 36.7 C Temperature Source Oral Pulse Rate - Lying Pulse Rate - Sitting Pulse Rate - Standing Pulse Rate 71 67 69 Pulse Rate [Finger] Pulse Rate from SpO2 Sensor 67 70 Respiratory Rate 20 20 20 Respiratory Effort / Characteristics Non-Labored Respiratory Depth Normal Respiratory Pattern Regular Blood Pressure - Lying Blood Pressure - Sitting Blood Pressure- Standing Blood Pressure 162/84 H Blood Pressure [Right Arm] Blood Pressure Mean 110 Blood Pressure Mean [Right Arm] Blood Pressure Position Sitting Pulse Oximetry 95 96 93 Oxygen Delivery Method Room Air Sepsis Recent Fever Within 48 Hours No Sepsis New/Unexplained Change in Mental Status No Sepsis Action Taken by Nursing No Action Required 09/05/19 13:50 09/05/19 14:00 09/05/19 14:10 Temperature Temperature Source Pulse Rate - Lying Pulse Rate - Sitting Pulse Rate - Standing Pulse Rate 75 67 66 Pulse Rate [Finger] Pulse Rate from SpO2 Sensor 73 67 66 Respiratory Rate 23 24 24 Respiratory Effort / Characteristics Respiratory Depth Respiratory Pattern Blood Pressure - Lying Blood Pressure - Sitting Blood Pressure- Standing Blood Pressure Blood Pressure [Right Arm] Blood Pressure Mean Blood Pressure Mean [Right Arm] Blood Pressure Position Pulse Oximetry 94 93 94 Oxygen Delivery Method Sepsis Recent Fever Within 48 Hours Sepsis New/Unexplained Change in Mental Status Sepsis Action Taken by Nursing 09/05/19 14:13 09/05/19 14:15 09/05/19 14:20 Temperature Temperature Source Pulse Rate - Lying Pulse Rate - Sitting Pulse Rate - Standing Pulse Rate 66 74 60 Pulse Rate [Finger] Pulse Rate from SpO2 Sensor 67 74 60 Respiratory Rate 17 13 19 Respiratory Effort / Characteristics Respiratory Depth Respiratory Pattern Blood Pressure - Lying Blood Pressure - Sitting Blood Pressure- Standing Blood Pressure 149/82 H 195/95 H Blood Pressure [Right Arm] Blood Pressure Mean 90 136 Blood Pressure Mean [Right Arm] Blood Pressure Position Pulse Oximetry 93 93 94 Oxygen Delivery Method Sepsis Recent Fever Within 48 Hours Sepsis New/Unexplained Change in Mental Status Sepsis Action Taken by Nursing 09/05/19 14:21 09/05/19 14:30 09/05/19 14:31 Temperature Temperature Source Pulse Rate - Lying 64 Pulse Rate - Sitting 67 Pulse Rate - Standing 70 Pulse Rate 59 L 61 Pulse Rate [Finger] Pulse Rate from SpO2 Sensor 60 61 Respiratory Rate 20 25 H Respiratory Effort / Characteristics Respiratory Depth Respiratory Pattern Blood Pressure - Lying 135/82 Blood Pressure - Sitting 149/82 H Blood Pressure- Standing 195/95 H Blood Pressure 155/70 H Blood Pressure [Right Arm] Blood Pressure Mean 115 Blood Pressure Mean [Right Arm] Blood Pressure Position Pulse Oximetry 92 94 Oxygen Delivery Method Sepsis Recent Fever Within 48 Hours Sepsis New/Unexplained Change in Mental Status Sepsis Action Taken by Nursing 09/05/19 14:40 09/05/19 14:50 09/05/19 15:00 Temperature Temperature Source Pulse Rate - Lying Pulse Rate - Sitting Pulse Rate - Standing Pulse Rate 59 L 59 L 59 L Pulse Rate [Finger] Pulse Rate from SpO2 Sensor 60 59 L 59 L Respiratory Rate 18 20 20 Respiratory Effort / Characteristics Respiratory Depth Respiratory Pattern Blood Pressure - Lying Blood Pressure - Sitting Blood Pressure- Standing Blood Pressure 135/84 Blood Pressure [Right Arm] Blood Pressure Mean 106 Blood Pressure Mean [Right Arm] Blood Pressure Position Pulse Oximetry 93 91 91 Oxygen Delivery Method Sepsis Recent Fever Within 48 Hours Sepsis New/Unexplained Change in Mental Status Sepsis Action Taken by Nursing 09/05/19 15:10 09/05/19 15:20 09/05/19 15:30 Temperature Temperature Source Pulse Rate - Lying Pulse Rate - Sitting Pulse Rate - Standing Pulse Rate 60 59 L 60 Pulse Rate [Finger] Pulse Rate from SpO2 Sensor 59 L 58 L 61 Respiratory Rate 19 20 19 Respiratory Effort / Characteristics Respiratory Depth Respiratory Pattern Blood Pressure - Lying Blood Pressure - Sitting Blood Pressure- Standing Blood Pressure 148/77 H Blood Pressure [Right Arm] Blood Pressure Mean 98 Blood Pressure Mean [Right Arm] Blood Pressure Position Pulse Oximetry 90 91 91 Oxygen Delivery Method Sepsis Recent Fever Within 48 Hours Sepsis New/Unexplained Change in Mental Status Sepsis Action Taken by Nursing 09/05/19 15:40 09/05/19 15:50 09/05/19 16:00 Temperature Temperature Source Pulse Rate - Lying Pulse Rate - Sitting Pulse Rate - Standing Pulse Rate 60 60 64 Pulse Rate [Finger] Pulse Rate from SpO2 Sensor 61 62 63 Respiratory Rate 19 19 19 Respiratory Effort / Characteristics Respiratory Depth Respiratory Pattern Blood Pressure - Lying Blood Pressure - Sitting Blood Pressure- Standing Blood Pressure 143/78 H Blood Pressure [Right Arm] Blood Pressure Mean 102 Blood Pressure Mean [Right Arm] Blood Pressure Position Pulse Oximetry 92 95 94 Oxygen Delivery Method Sepsis Recent Fever Within 48 Hours Sepsis New/Unexplained Change in Mental Status Sepsis Action Taken by Nursing 09/05/19 16:10 09/05/19 16:20 09/05/19 16:30 Temperature Temperature Source Pulse Rate - Lying Pulse Rate - Sitting Pulse Rate - Standing Pulse Rate 58 L 62 71 Pulse Rate [Finger] Pulse Rate from SpO2 Sensor 58 L 63 70 Respiratory Rate 20 19 19 Respiratory Effort / Characteristics Respiratory Depth Respiratory Pattern Blood Pressure - Lying Blood Pressure - Sitting Blood Pressure- Standing Blood Pressure 149/86 H Blood Pressure [Right Arm] Blood Pressure Mean 116 Blood Pressure Mean [Right Arm] Blood Pressure Position Pulse Oximetry 91 92 95 Oxygen Delivery Method Sepsis Recent Fever Within 48 Hours Sepsis New/Unexplained Change in Mental Status Sepsis Action Taken by Nursing 09/05/19 16:40 09/05/19 16:50 09/05/19 17:00 Temperature Temperature Source Pulse Rate - Lying Pulse Rate - Sitting Pulse Rate - Standing Pulse Rate 64 68 70 Pulse Rate [Finger] Pulse Rate from SpO2 Sensor 65 67 71 Respiratory Rate 20 18 18 Respiratory Effort / Characteristics Respiratory Depth Respiratory Pattern Blood Pressure - Lying Blood Pressure - Sitting Blood Pressure- Standing Blood Pressure 137/77 Blood Pressure [Right Arm] Blood Pressure Mean 94 Blood Pressure Mean [Right Arm] Blood Pressure Position Pulse Oximetry 93 92 91 Oxygen Delivery Method Sepsis Recent Fever Within 48 Hours Sepsis New/Unexplained Change in Mental Status Sepsis Action Taken by Nursing 09/05/19 17:10 09/05/19 17:20 09/05/19 17:30 Temperature Temperature Source Pulse Rate - Lying Pulse Rate - Sitting Pulse Rate - Standing Pulse Rate 72 68 70 Pulse Rate [Finger] Pulse Rate from SpO2 Sensor 72 69 71 Respiratory Rate 20 19 16 Respiratory Effort / Characteristics Respiratory Depth Respiratory Pattern Blood Pressure - Lying Blood Pressure - Sitting Blood Pressure- Standing Blood Pressure 139/75 Blood Pressure [Right Arm] Blood Pressure Mean 102 Blood Pressure Mean [Right Arm] Blood Pressure Position Pulse Oximetry 92 93 91 Oxygen Delivery Method Sepsis Recent Fever Within 48 Hours Sepsis New/Unexplained Change in Mental Status Sepsis Action Taken by Nursing 09/05/19 17:40 09/05/19 17:56 09/05/19 18:36 Temperature Temperature Source Pulse Rate - Lying Pulse Rate - Sitting Pulse Rate - Standing Pulse Rate 71 69 Pulse Rate [Finger] 76 Pulse Rate from SpO2 Sensor 71 70 77 Respiratory Rate 19 22 18 Respiratory Effort / Characteristics Respiratory Depth Respiratory Pattern Blood Pressure - Lying Blood Pressure - Sitting Blood Pressure- Standing Blood Pressure 159/87 H Blood Pressure [Right Arm] 159/87 H Blood Pressure Mean 108 Blood Pressure Mean [Right Arm] 111 Blood Pressure Position Pulse Oximetry 92 93 95 Oxygen Delivery Method Room Air Sepsis Recent Fever Within 48 Hours Sepsis New/Unexplained Change in Mental Status Sepsis Action Taken by Nursing 09/05/19 18:40 09/05/19 18:50 09/05/19 19:00 Temperature Temperature Source Pulse Rate - Lying Pulse Rate - Sitting Pulse Rate - Standing Pulse Rate 76 75 Pulse Rate [Finger] Pulse Rate from SpO2 Sensor 79 76 75 Respiratory Rate 20 22 Respiratory Effort / Characteristics Respiratory Depth Respiratory Pattern Blood Pressure - Lying Blood Pressure - Sitting Blood Pressure- Standing Blood Pressure 156/81 H Blood Pressure [Right Arm] Blood Pressure Mean 102 Blood Pressure Mean [Right Arm] Blood Pressure Position Pulse Oximetry 96 93 92 Oxygen Delivery Method Sepsis Recent Fever Within 48 Hours Sepsis New/Unexplained Change in Mental Status Sepsis Action Taken by Nursing 09/05/19 19:10 09/05/19 19:20 09/05/19 19:41 Temperature Temperature Source Pulse Rate - Lying Pulse Rate - Sitting Pulse Rate - Standing Pulse Rate 75 78 Pulse Rate [Finger] Pulse Rate from SpO2 Sensor 75 78 Respiratory Rate 20 21 Respiratory Effort / Characteristics Respiratory Depth Respiratory Pattern Blood Pressure - Lying Blood Pressure - Sitting Blood Pressure- Standing Blood Pressure Blood Pressure [Right Arm] Blood Pressure Mean Blood Pressure Mean [Right Arm] Blood Pressure Position Pulse Oximetry 92 91 Oxygen Delivery Method Room Air Sepsis Recent Fever Within 48 Hours Sepsis New/Unexplained Change in Mental Status Sepsis Action Taken by Nursing GENERAL: alert, well appearing, well nourished, no distress, non-toxic EYE EXAM: normal conjunctiva, PERRL and EOM's grossly intact, no nystagmus OROPHARYNX: no exudate, no erythema, lips, buccal mucosa, and tongue normal and mucous membranes are moist NECK: supple, no nuchal rigidity, no adenopathy, non-tender LUNGS: Clear to auscultation. Normal chest wall mechanics, no w/r/r HEART: no murmurs, S1 normal and S2 normal ABDOMEN: abdomen soft, non-tender, normo-active bowel sounds, no masses, no rebound or guarding. BACK: Back is symmetrical on inspection and there is no deformity, no midline tenderness, no CVA tenderness. SKIN: no rashes and no bruising UPPER EXTREMITIES: upper extremities are grossly normal. FROM, nml pulses b/l. LOWER EXTREMITIES: 1+ pitting edema. FROM, nml pulses b/l. NEURO EXAM: Normal sensorium, cranial nerves II-XII grossly intact, normal speech, no gross weakness of arms, no gross weakness of legs. Gross sensation intact. No facial droop. Course Course 1445: Update on results so far. Discussed possible neuroimaging. 1734: Patient awaiting MRI. Patient did have episode of vomiting here, symptoms improved with Zofran. 185: Patient updated on MRI results. Patient did have repeat episode of nausea and vomiting with change position. Discussed need for close follow-up with his PCP and possible need for neurology referral. Discussed continued use of his routine medication. 1944: As nurse began to discharge the patient, he stood up and asked to go to the bathroom. Patient denied that he was dizzy at this time. No abdominal pain. Patient subsequently entered the bathroom and began having multiple episodes of vomiting. 1999: Case discussed with Dr. Wesley. Administered Medications Discontinued Medications Allopurinol (Zyloprim) 100 mg PO [facility] Stop: 10/06/19 08:59 Last Admin: 09/07/19 08:28 Dose: 100 mg Documented by: [id number] Admin: 09/06/19 08:12 Dose: 100 mg Documented by: [id number] Amlodipine Besylate (Norvasc) 5 mg PO [facility] Stop: 10/06/19 20:59 Last Admin: 09/06/19 20:44 Dose: 5 mg Documented by: [id number] Atorvastatin Calcium (Lipitor) 20 mg PO [facility] Stop: 10/06/19 08:59 Last Admin: 09/07/19 08:28 Dose: 20 mg Documented by: [id number] Admin: 09/06/19 08:12 Dose: 20 mg Documented by: [id number] Citalopram Hydrobromide (Celexa) 20 mg PO [facility] Stop: 10/06/19 20:59 Last Admin: 09/06/19 20:44 Dose: 20 mg Documented by: [id number] Finasteride (Proscar) 5 mg PO [facility] Stop: 10/06/19 08:59 Last Admin: 09/07/19 08:28 Dose: 5 mg Documented by: [id number] Admin: 09/06/19 08:12 Dose: 5 mg Documented by: [id number] Sodium Chloride (Nss) 500 mls @ 999 mls/hr IV .Q31M ONE Stop: 09/05/19 14:30 Last Infusion: 09/05/19 15:07 Dose: 0 mls/hr Documented by: [id number] Admin: 09/05/19 14:22 Dose: 999 mls/hr Documented by: [id number] Sodium Chloride (Nss) 500 mls @ 999 mls/hr IV .Q31M ONE Stop: 09/05/19 18:09 Last Infusion: 09/05/19 18:44 Dose: 0 mls/hr Documented by: [id number] Admin: 09/05/19 18:02 Dose: 999 mls/hr Documented by: [id number] Prochlorperazine (Compazine) 1 mls @ 1 mls/min IV ONE ONE Stop: 09/05/19 20:06 Last Admin: 09/05/19 20:51 Dose: 1 mls/min Documented by: [id number] Potassium Chloride/Sodium Chloride (Normal Saline W/20 Meq Kcl) 20 meq in 1,000 mls @ 100 mls/hr IV .Q10H [facility] Stop: 10/05/19 22:59 Last Infusion: 09/07/19 08:05 Dose: 0 mls/hr Documented by: [id number] Admin: 09/07/19 05:06 Dose: 100 mls/hr Documented by: [id number] Infusion: 09/07/19 05:02 Dose: 100 mls/hr Documented by: [id number] Admin: 09/06/19 19:02 Dose: 100 mls/hr Documented by: [id number] Infusion: 09/06/19 19:02 Dose: 100 mls/hr Documented by: [id number] Admin: 09/06/19 10:08 Dose: 100 mls/hr Documented by: [id number] Infusion: 09/06/19 09:28 Dose: 100 mls/hr Documented by: [id number] Admin: 09/05/19 23:28 Dose: 100 mls/hr Documented by: [id number] Insulin Aspart (Novolog Flexpen) 0 units SC ACHS [facility] Stop: 10/06/19 11:29 Last Admin: 09/07/19 08:28 Dose: 8 units Documented by: [id number] Cosigned by: [id number] Admin: 09/06/19 20:45 Dose: Not Given Documented by: [id number] Cosigned by: [id number] Admin: 09/06/19 17:11 Dose: 8 units Documented by: [id number] Cosigned by: [id number] Admin: 09/06/19 12:33 Dose: 10 units Documented by: [id number] Cosigned by: [id number] Levothyroxine Sodium (Synthroid) 112 mcg PO DAILYBB [facility] Stop: 10/06/19 06:29 Last Admin: 09/07/19 06:35 Dose: 112 mcg Documented by: [id number] Admin: 09/06/19 05:14 Dose: 112 mcg Documented by: [id number] Lisinopril (Zestril) 20 mg PO [facility] Stop: 10/06/19 20:59 Last Admin: 09/06/19 20:44 Dose: 20 mg Documented by: [id number] Meclizine HCl (Antivert) 25 mg PO NOW STA Stop: 09/05/19 18:53 Last Admin: 09/05/19 19:33 Dose: 25 mg Documented by: [id number] Meclizine HCl (Antivert 25mg Home Pack) 1 homepack PO UD ONE Stop: 09/05/19 18:53 Last Admin: 09/05/19 19:46 Dose: Not Given Documented by: [id number] Meclizine HCl (Antivert) 25 mg PO Q6H PRN PRN Reason: Dizziness or Vertigo Stop: 10/06/19 11:29 Last Admin: 09/06/19 12:32 Dose: 25 mg Documented by: [id number] Multivitamins/Minerals (Multivitamin W/ Minerals Tab) 1 tab PO QAM [facility] Stop: 10/06/19 08:59 Last Admin: 09/07/19 08:28 Dose: 1 tab Documented by: [id number] Admin: 09/06/19 08:12 Dose: 1 tab Documented by: [id number] Ondansetron HCl (Zofran) 4 mg IV NOW STA Stop: 09/05/19 14:42 Last Admin: 09/05/19 14:43 Dose: 4 mg Documented by: [id number] Ondansetron HCl (Zofran) Confirm Administered Dose 4 mg .ROUTE .STK-MED ONE Stop: 09/05/19 14:42 Last Admin: 09/05/19 14:43 Dose: Not Given Documented by: [id number] Ondansetron HCl (Zofran Odt 4mg Home Pack) 1 homepack PO NOW ONE Stop: 09/05/19 19:04 Last Admin: 09/05/19 19:46 Dose: Not Given Documented by: [id number] Vitamin D (Vitamin D3) 2,000 units PO QDD [facility] Stop: 10/06/19 16:29 Last Admin: 09/06/19 16:13 Dose: 2,000 units Documented by: [id number] Warfarin Sodium (Coumadin) 4 mg PO [id number] [facility] Stop: 10/06/19 15:59 Last Admin: 09/06/19 16:12 Dose: 4 mg Documented by: [id number] Medical Decision Making Differential Diagnosis Differential diagnosis includes etiologies such as benign positional vertigo, dehydration, hypovolemia, anemia, tumor, infection, hypoglycemia, electrolyte abnormalities, cardiac sources, intracerebral event, toxicologic, neurologic, as well as others were entertained. Medical Records Attestation: I reviewed the patient's medical records. Home Medications Current Medication List: was personally reviewed by me Laboratory Data Attestation: I reviewed the patient's lab results. Result diagrams: 09/07/19 05:42 09/05/19 14:17 Lab Results 09/05/19 09/05/19 09/05/19 Range/Units 14:14 14:17 14:17 WBC 4.67 L (4.8-10.8) K/uL RBC 4.72 (4.7-6.1) M/uL Hgb 13.1 L (14.0-18.0) g/dL Hct 38.7 L (42-52) % MCV 82.0 (80-100) fL MCH 27.8 (25-34) pg MCHC 33.9 (32-36) g/dL RDW Std Deviation 42.5 (36.4-46.3) fL RDW Coeff of Quentin 14.0 (11.5-14.5) % Plt Count 105 L (130-400) K/uL MPV 10.7 H (7.4-10.4) fL Immature Gran % (Auto) 0.2 % Neut % (Auto) 60.7 % Lymph % (Auto) 24.4 % [place] % (Auto) 12.2 % Eos % (Auto) 2.1 % Baso % (Auto) 0.4 % Immature Gran # (Auto) 0.01 (0.00-0.02) K/uL Neut # (Auto) 2.83 (1.4-6.5) K/uL Lymph # (Auto) 1.14 L (1.2-3.4) K/uL [place] # (Auto) 0.57 (0.11-0.59) K/uL Eos # (Auto) 0.10 (0-0.5) K/uL Baso # (Auto) 0.02 (0-0.2) K/uL PT 20.4 H (9.0-12.0) Seconds INR 2.0 H (0.9-1.1) Sodium (136-145) mmol/L Potassium (3.5-5.1) mmol/L Chloride (98-107) mmol/L Carbon Dioxide (21-32) mmol/L Anion Gap (3-11) BUN (7-18) mg/dl Creatinine (0.6-1.4) mg/dl Est Cr Clr Drug Dosing Est GFR ( Amer) Est GFR (Non-Af Amer) BUN/Creatinine Ratio (10-20) Glucose (70-99) mg/dl Calcium (8.5-10.1) mg/dl Magnesium (1.8-2.4) mg/dl Total Bilirubin (0.2-1) mg/dl AST (15-37) U/L ALT (12-78) U/L Alkaline Phosphatase (45-117) U/L Troponin I (0-0.045) ng/ml NT-Pro-B Natriuret Pep (0-900) pg/ml Total Protein (6.4-8.2) gm/dl Albumin (3.4-5.0) gm/dl Globulin (2.5-4.0) gm/dl Albumin/Globulin Ratio (0.9-2) Lipase (73-393) U/L TSH (0.300-4.500) uIu/ml Urine Color Urine Appearance (Clear) Urine pH (4.5-7.5) Ur Specific [place] (1.000-1.030) Urine Protein (Negative) Urine Glucose (UA) (Negative) Urine Ketones (Negative) Urine Blood (Negative) Urine Nitrite (Negative) Urine Bilirubin (Negative) Urine Urobilinogen (Negative) Ur Leukocyte Esterase (Negative) Urine RBC (0-4) /hpf Urine WBC (0-5) /hpf Ur Epithelial Cells (0-5) /lpf Urine Bacteria (Negative) Lyme Disease IgG Ab (Negative) Lyme Disease IgM Ab (Negative) Hepatitis C Ab Screen Neg (Neg) 09/05/19 09/05/19 09/05/19 Range/Units 14:17 14:17 18:45 WBC (4.8-10.8) K/uL RBC (4.7-6.1) M/uL Hgb (14.0-18.0) g/dL Hct (42-52) % MCV (80-100) fL MCH (25-34) pg MCHC (32-36) g/dL RDW Std Deviation (36.4-46.3) fL RDW Coeff of Quentin (11.5-14.5) % Plt Count (130-400) K/uL MPV (7.4-10.4) fL Immature Gran % (Auto) % Neut % (Auto) % Lymph % (Auto) % [place] % (Auto) % Eos % (Auto) % Baso % (Auto) % Immature Gran # (Auto) (0.00-0.02) K/uL Neut # (Auto) (1.4-6.5) K/uL Lymph # (Auto) (1.2-3.4) K/uL [place] # (Auto) (0.11-0.59) K/uL Eos # (Auto) (0-0.5) K/uL Baso # (Auto) (0-0.2) K/uL PT (9.0-12.0) Seconds INR (0.9-1.1) Sodium 138 (136-145) mmol/L Potassium 3.7 (3.5-5.1) mmol/L Chloride 107 (98-107) mmol/L Carbon Dioxide 28 (21-32) mmol/L Anion Gap 3.0 (3-11) BUN 11 (7-18) mg/dl Creatinine 1.04 (0.6-1.4) mg/dl Est Cr Clr Drug Dosing Not Reportable Est GFR ( Amer) 82.7 Est GFR (Non-Af Amer) 71.4 BUN/Creatinine Ratio 10.4 (10-20) Glucose 116 H (70-99) mg/dl Calcium 8.9 (8.5-10.1) mg/dl Magnesium 2.0 (1.8-2.4) mg/dl Total Bilirubin 0.4 (0.2-1) mg/dl AST 11 L (15-37) U/L ALT 18 (12-78) U/L Alkaline Phosphatase 97 (45-117) U/L Troponin I < 0.015 (0-0.045) ng/ml NT-Pro-B Natriuret Pep 31 (0-900) pg/ml Total Protein 6.8 (6.4-8.2) gm/dl Albumin 3.5 (3.4-5.0) gm/dl Globulin 3.3 (2.5-4.0) gm/dl Albumin/Globulin Ratio 1.1 (0.9-2) Lipase 87 (73-393) U/L TSH 1.260 (0.300-4.500) uIu/ml Urine Color Yellow Urine Appearance Clear (Clear) Urine pH 5.5 (4.5-7.5) Ur Specific [place] 1.020 (1.000-1.030) Urine Protein Negative (Negative) Urine Glucose (UA) Negative (Negative) Urine Ketones Negative (Negative) Urine Blood 1+ H (Negative) Urine Nitrite Negative (Negative) Urine Bilirubin Negative (Negative) Urine Urobilinogen Negative (Negative) Ur Leukocyte Esterase 1+ H (Negative) Urine RBC 0-4 (0-4) /hpf Urine WBC 10-30 H (0-5) /hpf Ur Epithelial Cells 0-5 (0-5) /lpf Urine Bacteria Negative (Negative) Lyme Disease IgG Ab Negative (Negative) Lyme Disease IgM Ab Negative (Negative) Hepatitis C Ab Screen (Neg) Imaging Data Radiologist's Impression: MR brain wo con HISTORY: 73 years-old Male dizziness acute dizziness COMPARISON: Head CT 05/15/2019, brain MRI 04/28/2018 TECHNIQUE: Multiplanar multisequence MRI of brain was obtained without the use of IV contrast. FINDINGS: Secretarial Teacher localizer images demonstrate no gross abnormality. Midline structures including the corpus callosum, brainstem, optic chiasm, pituitary and pineal glands appear unremarkable on the sagittal T1 series. No evidence of cerebellar tonsillar herniation. There is no restricted diffusion to suggest acute or subacute infarction. No acute intracranial hemorrhage, midline shift, abnormal extra-axial collections, hydrocephalus or intracranial mass. Age-related involutional changes. Moderate patchy T2/FLAIR hyperintensities throughout the white matter are suggestive of of chronic microvascular ischemic changes. The major flow voids appear patent. Trace left mastoid effusion. Mild mucosal thickening of the ethmoid, maxillary and sphenoid sinuses. Hypoplastic frontal sinuses. The skull, soft tissues and orbits appear unremarkable. IMPRESSION: No acute intracranial abnormality, specifically there is no evidence of acute or subacute infarct. ACT 112: Negative or not required by law. The above report was generated using voice recognition software. It may contain grammatical, syntax or spelling errors. Electronically signed by: Alvaro Bethea M.D. 09/05/2019 6:47 PM Blood Pressure Blood Pressure Findings: Elevated blood pressure Blood Pressure Disposition: Referred to patients primary care provider MDM Narrative Pt here concerned about recurrent dizziness. No sx to suggest central etiology, however given persistence labs drawn and pt sent for MR brain. UA abnormal likely from recent treatment for bladder cancer. No accompanying sx with dizziness except nausea. Labs and imaging reassuring. Pt required several doses of zofran for nausea while here which seemed worse during position change. I do not suspect dissection, acs, dysrhythmia, sepsis, pe, cvs thrombus, mass. Pt with persistent imaging when we attempted to dc the patient and uncomfortable taking him home with persistent vomiting, and I agreed that continued inpatient observation was likely the safest plan at this time given pt couldn't walk and felt very dizzy with vomiting. VS stable and pt afebrile. No accompanying abdominal pain. I do not suspect GI etiology at this time. No other sx to suggest GI origin of the vomiting. I do feel pt water intake and possibly htn could also be contributing factors. Impression & Plan Dizziness, Hypertension, Dehydration Discharge Plan Visit Data *Final* Discharge Date/Time: 09/05/19 22:02 Chief Complaint: Vertigo Stated Complaint: LIGHTHEAD,DIZZY,HEADACHE ED Provider: Judy Grover Discharge Problem: Dizziness, Hypertension, Dehydration Patient Disposition: Admitted As Inpatient Condition: Good Discharge Instructions Interventions: ED Discharge Assessment Last Done: 09/05/19 22:02 Discharge Problem: Hypertension Qualifiers: Hypertension type: essential hypertension Qualified Code(s): I10 - Essential (primary) hypertension
--- NOTE | 2019-09-05 14:35 | Electrocardiogram Report ---
Test Reason : Blood Pressure : / mmHG Vent. Rate : 067 BPM Atrial Rate : 067 BPM P-R Int : 178 ms QRS Dur : 172 ms QT Int : 442 ms P-R-T Axes : 050 -46 -25 degrees QTc Int : 467 ms Normal sinus rhythm Right bundle branch block Left anterior fascicular block Bifascicular block T wave abnormality, consider lateral ischemia Abnormal ECG When compared with ECG of 15-MAY-2019 14:22, No significant change was found Confirmed by Brigido Santoyo ([id number]) on 09/05/2019 2:34:51 PM Referred By: Confirmed By:Pedrito Santoyo
[2019-09-05] MEDS ORDERED: ONDANSETRON INJ 2 MG/ML 2 ML VIAL IV STA (14:41)
[2019-09-05] MEDS ORDERED: ONDANSETRON INJ 2 MG/ML 2 ML VIAL ONE (14:41)
[2019-09-05 15:01] LABS: Basophils # (auto) 0.02 K/uL (0-0.2); Basophils % (auto) 0.4 %; Eosinophils % (auto) 2.1 %; Hematocrit (blood only) 38.7 % (42-52); Hemoglobin 13.1 g/dL (14.0-18.0); Immature Granulocytes # (auto) 0.01 K/uL (0.00-0.02); Immature Granulocytes % (auto) 0.2 %; Lymphocytes # (auto) 1.14 K/uL (1.2-3.4); Lymphocytes % (auto) 24.4 %; Mean Corpuscular Hemoglobin 27.8 pg (25-34); Mean Corpuscular Hgb Conc 33.9 g/dL (32-36); Mean Platelet Volume 10.7 fL (7.4-10.4); Monocytes # (auto) 0.57 K/uL (0.11-0.59); Monocytes % (auto) 12.2 %; Neutrophils # (auto) 2.83 K/uL (1.4-6.5); Neutrophils % (auto) 60.7 %; Platelet Count 105 K/uL (130-400); RDW Standard Deviation 42.5 fL (36.4-46.3); Red Blood Count 4.72 M/uL (4.7-6.1); White Blood Count 4.67 K/uL (4.8-10.8)
[2019-09-05 15:04] LABS: Prothrombin Time 20.4 Seconds (9.0-12.0)
[2019-09-05 15:08] LABS: Alanine Aminotransferase 18 U/L (12-78); Albumin Level 3.5 gm/dl (3.4-5.0); Aspartate Aminotransferase 11 U/L (15-37); BUN Creatinine Ratio 10.4 (10-20); Blood Urea Nitrogen 11 mg/dl (7-18); Calcium 8.9 mg/dl (8.5-10.1); Carbon Dioxide 28 mmol/L (21-32); Chloride 107 mmol/L (98-107); Est GFR (African American) 82.7; Est GFR (Non-African American) 71.4; Glucose 116 mg/dl (70-99); Lipase 87 U/L (73-393); Potassium 3.7 mmol/L (3.5-5.1); Sodium 138 mmol/L (136-145)
[2019-09-05 15:19] LABS: Albumin Globulin Ratio 1.1 (0.9-2); Alkaline Phosphatase 97 U/L (45-117); Bilirubin,Total 0.4 mg/dl (0.2-1); Globulin 3.3 gm/dl (2.5-4.0); NT Pro B Type Natriuretic Pept 31 pg/ml (0-900); Total Protein 6.8 gm/dl (6.4-8.2); Troponin I < 0.015 ng/ml (0-0.045)
[2019-09-05 16:06] LABS: Lyme Ab IgG w/WB Rflx Negative (Negative); Lyme Ab IgM w/WB Rflx Negative (Negative)
--- NOTE | 2019-09-05 18:49 | Magnetic Resonance Report ---
MR brain wo con HISTORY: 73 years-old Male dizziness acute dizziness COMPARISON: Head CT 05/15/2019, brain MRI 04/28/2018 TECHNIQUE: Multiplanar multisequence MRI of brain was obtained without the use of IV contrast. FINDINGS: Food [employer] Bever[employer] Intern localizer images demonstrate no gross abnormality. Midline structures including the corpus call osum, brainstem, optic chiasm, pituitary and pineal glands appear unremarkable on the sagittal T1 ser ies. No evidence of cerebellar tonsillar herniation. There is no restricted diffusion to suggest acut e or subacute infarction. No acute intracranial hemorrhage, midline shift, abnormal extra-axial colle ctions, hydrocephalus or intracranial mass. Age-related involutional changes. Moderate patchy T2/FLAI R hyperintensities throughout the white matter are suggestive of of chronic microvascular ischemic ch anges. The major flow voids appear patent. Trace left mastoid effusion. Mild mucosal thickening of the ethmo id, maxillary and sphenoid sinuses. Hypoplastic frontal sinuses. The skull, soft tissues and orbits a ppear unremarkable. IMPRESSION: No acute intracranial abnormality, specifically there is no evidence of acute or subacute infarct. ACT 112: Negative or not required by law. The above report was generated using voice recognition software. It may contain grammatical, syntax o r spelling errors. Electronically signed by: Alvaro Bethea M.D. 09/05/2019 6:47 PM
[2019-09-05] MEDS ORDERED: MECLIZINE HCL 25 MG TAB PO STA (18:52)
[2019-09-05 18:58] LABS: Appearance Urine Clear (Clear); Bilirubin Urine Negative (Negative); Blood Urine 1+ (Negative); Color Urine Yellow; Glucose Urine UA Negative (Negative); Ketones Urine Negative (Negative); Leukocyte Esterase Urine 1+ (Negative); Nitrite Urine Negative (Negative); Protein Urine Negative (Negative); Urobilinogen Urine Negative (Negative); pH Urine 5.5 (4.5-7.5)
[2019-09-05 19:18] LABS: Epithelial Cell Urine 0-5 /lpf (0-5); RBC Urine 0-4 /hpf (0-4)
[2019-09-05 19:19] LABS: Bacteria Urine Negative (Negative)
[2019-09-05] MEDS: ONDANSETRON HOME PACK 4MG OD TAB PO ONE ×2 (19:32→19:46)
[2019-09-05] MEDS: MECLIZINE HCL 25MG HOME PACK PO ONE ×2 (19:32→19:46)
[2019-09-05] MEDS ORDERED: PROCHLORPERAZINE 1 ML IV ONE (20:05)
--- NOTE | 2019-09-05 20:41 | XRay Report ---
XR abdomen 2V w PA chest HISTORY: 73 years-old Male n/v acute nausea and vomiting with recent fall COMPARISON: Chest radiograph 05/15/2019, CT abdomen and pelvis 10/18/2018 TECHNIQUE: PA view of the chest with erect and supine views of the abdomen FINDINGS: Nodular opacities overlie the bilateral lung bases suggestive of probable nipple shadows. Cardiomedia stinal and hilar silhouettes are within normal limits. No pneumothorax, pleural effusion, overt pulmo nary edema or airspace consolidation typical for pneumonia. Degenerative changes of the shoulders and spine. No pneumatosis or pneumoperitoneum. 4 mm calculus of the interpolar right kidney. No definite uretera l calculi. Gas pattern is nonobstructive. Demineralized appearance the bones with degenerative change s of the spine, pelvis and hips. No acute displaced rib fracture identified. IMPRESSION: 1. No acute processes of the chest. 2. Nodular opacities overlying the bilateral lung bases are suggestive of probable nipple shadows. Th is could be confirmed with follow-up radiograph with nipple markers. 3. Nonobstructive bowel gas pattern. 4. Right nephrolithiasis. ACT 112: Negative or not required by law. The above report was generated using voice recognition software. It may contain grammatical, syntax o r spelling errors. Electronically signed by: Alvaro Bethea M.D. 09/05/2019 8:40 PM
[2019-09-05] MEDS ORDERED: ALUMINUM/MAGNESIUM SUSP 30 ML UDC PO PRN (22:31)
[2019-09-05] MEDS ORDERED: MAGNESIUM HYDROXIDE SUSP 30 ML UDC PO PRN (22:31)
[2019-09-05] MEDS ORDERED: ONDANSETRON INJ 2 MG/ML 2 ML VIAL IV PRN (22:31)
[2019-09-05] MEDS ORDERED: ACETAMINOPHEN 325 MG TAB PO PRN (22:31)
--- NOTE | 2019-09-05 22:56 | History & Physical Report ---
Date of Service September 05, 2019 Assessment & Plan (1) Dizziness: The patient presents to the emergency department with 3 weeks of progressively worsening dizziness with dehydration, and then had vomiting episode while in the ED. MRI brain was negative for acute event. Chest x-ray and KUB did not show any cause. Patient will be placed in observation for symptomatic control. Present on Admission?: Yes (2) Vomiting: See above Present on Admission?: Yes (3) Dehydration: See above Present on Admission?: Yes (4) Hypertension: (5) Hyperlipidemia: Continue atorvastatin 20 mg at bedtime Present on Admission?: Yes (6) Myelodysplastic syndrome: CBC D all within normal parameters. Present on Admission?: Yes (7) Vertebrobasilar artery insufficiency: Symptoms were not provoked by standard maneuvers for VBI Present on Admission?: Yes (8) Restless legs syndrome: Reportedly uses oxycodone/acetaminophen as needed, which will be held this admission. Present on Admission?: Yes (9) Diabetes mellitus, type II: Hold glimepiride and metformin. Placed on Accu-Cheks before meals and at bedtime with NovoLog coverage per scale. Glucose was 116 upon admission, with recent A1c 1 month ago 6.1. No suggestion of hypo-or hyperglycemia as cause of symptoms. Present on Admission?: Yes (10) Hypothyroidism: Continue levothyroxine sodium 112 mcg p.o. daily. Present on Admission?: Yes (11) Benign prostatic hyperplasia: Continue tamsulosin and finasteride. No urinary symptomatology Present on Admission?: Yes History of Present Illness Chief Complaint: The patient presents to the emergency department with complaint of worsening dizziness over the past 3 weeks, and had an episode of vomiting when sitting up while in the ED. Primary Care Provider: Dariusz Hidalgo DO The patient is a 73-year-old male with a past medical history including sacroiliitis, urothelial carcinoma the bladder, chronic low back pain, vertebrobasilar insufficiency, restless leg syndrome, lumbar radiculopathy, hyperlipidemia, gout, myelodysplastic syndrome, diabetes mellitus, hypertension, hypothyroidism, BPH, obstructive sleep apnea on CPAP and lumbar spinal stenosis. He presents to the emergency department with worsening dizziness over the past 3 weeks, and had an episode of vomiting uncontrollably while in the ED. He has had no recent travels or sick exposures. He has no questionable food intakes. Allergies Allergy/AdvReac Type Severity Reaction Status Date / Time etodolac Allergy Intermediate HAND Verified 09/05/19 14:48 SWELLING nickel Allergy Mild Rash Verified 09/05/19 14:48 duloxetine [From Cymbalta] AdvReac Intermediate DID NOT Verified 09/05/19 14:48 WORK INTENDED Home Medications Home Medications Medication Instructions Recorded Confirmed Type valacyclovir 1 gram tablet 2,000 mg PO BID PRN tab 03/29/18 09/05/19 History vitamins A,C,I-wnmd-jyeheq 14,320 1 cap PO QAM 05/25/18 09/05/19 History unit-226 mg-200 unit capsule lancets 33 gauge #100 ea 11/30/18 09/04/19 History finasteride 5 mg tablet 5 mg PO QAM #30 tab 01/02/19 09/05/19 History blood sugar diagnostic #10 ea 03/16/19 09/04/19 History metformin 1,000 mg tablet 1,000 mg PO BID #180 tab 05/26/19 09/05/19 Rx oxycodone-acetaminophen 5 mg-325 1 tab PO Q6H PRN #20 tab 06/05/19 09/05/19 Rx mg tablet atorvastatin 20 mg tablet 20 mg PO QAM #30 tab 06/11/19 09/05/19 Rx amlodipine 5 mg tablet 5 mg PO HS #90 tab 07/10/19 09/05/19 Rx warfarin 4 mg tablet 4 mg PO UD tab 07/10/19 09/05/19 History allopurinol 100 mg PO QAM 08/02/19 09/05/19 History cholecalciferol (vitamin D3) 2,000 unit PO QDD 08/02/19 09/05/19 History [Vitamin D3] cyanocobalamin (vitamin B-12) 2,000 mcg PO QAM 08/02/19 09/05/19 History lisinopril 20 mg PO HS 08/02/19 09/05/19 History tamsulosin [Flomax] 0.4 mg PO QAM 08/02/19 09/05/19 History glimepiride 1 mg tablet 1 mg PO QAM #90 tab 08/06/19 09/05/19 Rx levothyroxine 112 mcg tablet 112 mcg PO QAM #90 tab 08/29/19 09/05/19 Rx citalopram [Celexa] 20 mg PO HS 09/05/19 09/05/19 History meclizine 25 mg PO TID PRN #20 tab 09/05/19 Rx ondansetron 4 mg PO Q8H PRN #14 tab 09/05/19 Rx Past Med/Surg History Medical History Bilateral pulmonary embolism Onset: 2014; presumed unprovoked. On extended AC with warfarin through an ticoagulation clinic. Deep vein thrombosis (Inactive) Onset: 2014; presumed unprovoked. Complicated with b/l pulmonary emboli. AC with warfarin through anticoagluation clinic. 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 Evaluated by neuro. MRI brain, MRA head and neck negative. Holter monitor negative. Referred to ENT (08/30). Headache History of kidney stones Lumbar spinal stenosis Macular degeneration Psoriasis Solitary pulmonary nodule 1. Stable 6 mm right lower lobe nodule since abdominal CT of November 01, 2012. Stability over this time period is indicative of a benign etiology. 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 Heme/Onc eval: bone marrow biopsy 2006 concern for early MDS. Repeat bone marrow biopsy (2013) normal cellular marrow with normal morphology. 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 Monitored q6 mo by Heme/Onc Tubular adenoma of colon Found on screening colonoscopy (03/30) with recommendation of repeat in 5 years (04/04) Vitamin B12 deficiency Vitamin D deficiency Surgical History Difficult airway for intubation Glidescope #4, ETT #8.0 Oral, Grade 2 View, Atraumatic intubation History of bilateral carpal tunnel release History of colonoscopy 03/2017 repeat 5 yrs History of cystoscopy REMOVAL POLYP-CANCER DX History of repair of left rotator cuff 07/12/15 - Glidescope #4, ETT #8.0 Oral, Grade 2 View, Atraumatic intubation, History of tonsillectomy S/P repair of hydrocele Family History Father Family history of diabetes mellitus Diabetes Myocardial infarction Mother Family history of diabetes mellitus Diabetes Hypertension Brother Cancer Other FHx: cancer Denies family history of Ovarian cancer Prostate cancer Breast cancer Lung cancer Colorectal cancer Stroke Social History Preferred Language: Indonesian Communication Ability: Effective Visual Impairment: No Limitations Hearing Ability: Use of Hearing Aid Diet Kitchen Cook Required: No Beliefs That Will Affect Care: None marital status: Current Living Situation: Spouse current occupational status: retired Other Information That Helps Us Care for You: No Feels Safe at Home: Yes Safety Concerns: Feels Safe At This Time Smoking Status: Never smoker Cigarettes Per Day: 1 ppd x 2-3 years ; Do You Dip or Chew Tobacco: No ; Second Hand Exposure: No ; Tobacco Cessation Education Requested by Patient: No Hx Alcohol Use: No Hx Substance Use: No Childhood Exposure to Second-Hand Smoke: Yes caffeine: Yes Dental Care, Regularly: Yes Physical Activity Frequency: Does not Exercise Seatbelt Use: always Sunscreen Use: No Review of Systems 2 Review of Systems: The patient denies chest pain, palpitations, shortness of breath, dyspnea on exertion, cough, lower extremity swelling, sore throat, fevers, chills, sweats, weight change, fatigue, diarrhea , constipation, abdominal pain, pelvic pain, blood in urine or stool, dysuria, urinary frequency or urgency, lightheadedness, dizziness, headache, memory loss, loss of consciousness, rash, abnormal bruising or bleeding, imbalance, focal or generalized weakness, numbness or tingling in arms or legs, generalized arthralgias or myalgias, back or neck pain, or night sweats. The review of systems is otherwise negative other than for that already noted above, and at least 10 systems have been reviewed. Physical Exam Physical Exam: The patient is awake, alert and oriented 3, well developed and well nourished, normocephalic and atraumatic, lying in bed and in no acute distress. HEENT--PERRL, EOMI, mucous membranes and oropharynx mildly dry. Neck--supple. No JVD. No bruits. Thyroid normal, trachea midline, no adenopathy. Heart--normal S1 and S2. No murmurs, rubs or gallops. Lungs--clear bilaterally, no respiratory distress, no accessory muscle use. Abdomen--normal bowel sounds and soft. Nontender. Mildly distended and tympanitic. Extremities--no cyanosis or clubbing. No edema. Dermatologic--normal skin turgor, normal color, no abnormal lymph nodes, no rash. Neurologic--cranial nerves II through XII grossly intact. Rheumatologic--normal range of motion. Psychiatric--normal affect. Results & Data Vital Signs (Past 12 Hours) Vital Signs Temp Pulse Pulse Resp BP BP Pulse Ox 09/05/19 22:32 85 19 166/85 H 94 09/05/19 21:40 83 16 91 09/05/19 21:30 84 22 155/87 H 95 09/05/19 21:20 88 7 L 95 09/05/19 21:10 83 19 09/05/19 21:00 81 16 146/80 H 92 09/05/19 20:50 83 14 94 09/05/19 20:49 83 14 95 09/05/19 20:10 93 09/05/19 20:09 93 09/05/19 19:30 77 17 151/87 H 91 09/05/19 19:20 78 21 91 09/05/19 19:10 75 20 92 09/05/19 19:00 75 22 156/81 H 92 09/05/19 18:50 76 20 93 09/05/19 18:40 96 09/05/19 18:36 76 18 159/87 H 159/87 H 95 09/05/19 17:56 69 22 93 09/05/19 17:40 71 19 92 09/05/19 17:30 70 16 139/75 91 09/05/19 17:20 68 19 93 09/05/19 17:10 72 20 92 09/05/19 17:00 70 18 137/77 91 09/05/19 16:50 68 18 92 09/05/19 16:40 64 20 93 09/05/19 16:30 71 19 149/86 H 95 09/05/19 16:20 62 19 92 09/05/19 16:10 58 L 20 91 09/05/19 16:00 64 19 143/78 H 94 09/05/19 15:50 60 19 95 09/05/19 15:40 60 19 92 09/05/19 15:30 60 19 148/77 H 91 09/05/19 15:20 59 L 20 91 09/05/19 15:10 60 19 90 09/05/19 15:00 59 L 20 135/84 91 09/05/19 14:50 59 L 20 91 09/05/19 14:40 59 L 18 93 09/05/19 14:31 61 25 H 155/70 H 94 09/05/19 14:30 59 L 20 92 09/05/19 14:20 60 19 94 09/05/19 14:15 74 13 195/95 H 93 09/05/19 14:13 66 17 149/82 H 93 09/05/19 14:10 66 24 94 09/05/19 14:00 67 24 93 09/05/19 13:50 75 23 94 09/05/19 13:40 69 20 93 09/05/19 13:30 67 20 96 09/05/19 12:59 98.1 F 71 20 162/84 H 95 Laboratory Results Laboratory Results WBC 4.67 K/uL (4.8-10.8) L 09/05/19 14:17 RBC 4.72 M/uL (4.7-6.1) 09/05/19 14:17 Hgb 13.1 g/dL (14.0-18.0) L 09/05/19 14:17 Hct 38.7 % (42-52) L 09/05/19 14:17 MCV 82.0 fL (80-100) 09/05/19 14:17 MCH 27.8 pg (25-34) 09/05/19 14:17 MCHC 33.9 g/dL (32-36) 09/05/19 14:17 RDW Std Deviation 42.5 fL (36.4-46.3) 09/05/19 14:17 RDW Coeff of Quentin 14.0 % (11.5-14.5) 09/05/19 14:17 Plt Count 105 K/uL (130-400) L 09/05/19 14:17 MPV 10.7 fL (7.4-10.4) H 09/05/19 14:17 Immature Gran % (Auto) 0.2 % 09/05/19 14:17 Neut % (Auto) 60.7 % 09/05/19 14:17 Lymph % (Auto) 24.4 % 09/05/19 14:17 [place] % (Auto) 12.2 % 09/05/19 14:17 Eos % (Auto) 2.1 % 09/05/19 14:17 Baso % (Auto) 0.4 % 09/05/19 14:17 Immature Gran # (Auto) 0.01 K/uL (0.00-0.02) 09/05/19 14:17 Neut # (Auto) 2.83 K/uL (1.4-6.5) 09/05/19 14:17 Lymph # (Auto) 1.14 K/uL (1.2-3.4) L 09/05/19 14:17 Harrison # (Auto) 0.57 K/uL (0.11-0.59) 09/05/19 14:17 Eos # (Auto) 0.10 K/uL (0-0.5) 09/05/19 14:17 Baso # (Auto) 0.02 K/uL (0-0.2) 09/05/19 14:17 PT 20.4 Seconds (9.0-12.0) H 09/05/19 14:17 INR 2.0 (0.9-1.1) H 09/05/19 14:17 Sodium 138 mmol/L (136-145) 09/05/19 14:17 Potassium 3.7 mmol/L (3.5-5.1) 09/05/19 14:17 Chloride 107 mmol/L (98-107) 09/05/19 14:17 Carbon Dioxide 28 mmol/L (21-32) 09/05/19 14:17 Anion Gap 3.0 (3-11) 09/05/19 14:17 BUN 11 mg/dl (7-18) 09/05/19 14:17 Creatinine 1.04 mg/dl (0.6-1.4) 09/05/19 14:17 Est Cr Clr Drug Dosing Not Reportable 09/05/19 14:17 Est GFR ( Amer) 82.7 09/05/19 14:17 Est GFR (Non-Af Amer) 71.4 09/05/19 14:17 BUN/Creatinine Ratio 10.4 (10-20) 09/05/19 14:17 Glucose 116 mg/dl (70-99) H 09/05/19 14:17 Calcium 8.9 mg/dl (8.5-10.1) 09/05/19 14:17 Magnesium 2.0 mg/dl (1.8-2.4) 09/05/19 14:17 Total Bilirubin 0.4 mg/dl (0.2-1) 09/05/19 14:17 AST 11 U/L (15-37) L 09/05/19 14:17 ALT 18 U/L (12-78) 09/05/19 14:17 Alkaline Phosphatase 97 U/L (45-117) 09/05/19 14:17 Troponin I < 0.015 ng/ml (0-0.045) 09/05/19 14:17 NT-Pro-B Natriuret Pep 31 pg/ml (0-900) 09/05/19 14:17 Total Protein 6.8 gm/dl (6.4-8.2) 09/05/19 14:17 Albumin 3.5 gm/dl (3.4-5.0) 09/05/19 14:17 Globulin 3.3 gm/dl (2.5-4.0) 09/05/19 14:17 Albumin/Globulin Ratio 1.1 (0.9-2) 09/05/19 14:17 Lipase 87 U/L (73-393) 09/05/19 14:17 TSH 1.260 uIu/ml (0.300-4.500) 09/05/19 14:17 Urine Color Yellow 09/05/19 18:45 Urine Appearance Clear (Clear) 09/05/19 18:45 Urine pH 5.5 (4.5-7.5) 09/05/19 18:45 Ur Specific [place] 1.020 (1.000-1.030) 09/05/19 18:45 Urine Protein Negative (Negative) 09/05/19 18:45 Urine Glucose (UA) Negative (Negative) 09/05/19 18:45 Urine Ketones Negative (Negative) 09/05/19 18:45 Urine Blood 1+ (Negative) H 09/05/19 18:45 Urine Nitrite Negative (Negative) 09/05/19 18:45 Urine Bilirubin Negative (Negative) 09/05/19 18:45 Urine Urobilinogen Negative (Negative) 09/05/19 18:45 Ur Leukocyte Esterase 1+ (Negative) H 09/05/19 18:45 Urine RBC 0-4 /hpf (0-4) 09/05/19 18:45 Urine WBC 10-30 /hpf (0-5) H 09/05/19 18:45 Ur Epithelial Cells 0-5 /lpf (0-5) 09/05/19 18:45 Urine Bacteria Negative (Negative) 09/05/19 18:45 Lyme Disease IgG Ab Negative (Negative) 09/05/19 14:17 Lyme Disease IgM Ab Negative (Negative) 09/05/19 14:17 Hepatitis C Ab Screen Neg (Neg) 09/05/19 14:14 Diagnostic Findings [place], [place] [phone] Magnetic Resonance Report Patient: JO-ANN SRINIVASAN Date: 09/05/19 MR#: [id number]: [address] Acct ID:[id number]: [address] Date: 1945[facility] Zip: [place] [address] Age: 73Location: ED Sex: M Room/Bed: Att Phy:Diagnosis: LIGHTHEAD,DIZZY,HEADACHE Mariel Phy: Dariusz Hidalgo, DOService Date: 09/05/19 Fam Phy:Interpreting Phy: Zion Bethea Admit Phy: Ordering Phy: Judy Grover DO cc: ~ MR brain wo con HISTORY: 73 years-old Male dizziness acute dizziness COMPARISON: Head CT 05/15/2019, brain MRI 04/28/2018 TECHNIQUE: Multiplanar multisequence MRI of brain was obtained without the use of IV contrast. FINDINGS: Sash Assembler localizer images demonstrate no gross abnormality. Midline structures including the corpus callosum, brainstem, optic chiasm, pituitary and pineal glands appear unremarkable on the sagittal T1 series. No evidence of cerebellar tonsillar herniation. There is no restricted diffusion to suggest acute or subacute infarction. No acute intracranial hemorrhage, midline shift, abnormal extra-axial collections, hydrocephalus or intracranial mass. Age-related involutional changes. Moderate patchy T2/FLAIR hyperintensities throughout the white matter are suggestive of of chronic microvascular ischemic changes. The major flow voids appear patent. Trace left mastoid effusion. Mild mucosal thickening of the ethmoid, maxillary and sphenoid sinuses. Hypoplastic frontal sinuses. The skull, soft tissues and orbits appear unremarkable. IMPRESSION: No acute intracranial abnormality, specifically there is no evidence of acute or subacute infarct. ACT 112: Negative or not required by law. The above report was generated using voice recognition software. It may contain grammatical, syntax or spelling errors. Electronically signed by: Alvaro Bethea M.D. 09/05/2019 6:47 PM Dictated: 09/05/191842 Transcribed: 09/05/191842 [place], [place] [phone] XRay Report Patient: JO-ANN SRINIVASAN Date: 09/05/19 MR#: [id number]: [address] Acct ID:[id number]: [address] Date: 1945City Zip: [place] [address] Age: 73Location: ED Sex: M Room/Bed: Att Phy:Diagnosis: LIGHTHEAD,DIZZY,HEADACHE Mariel Phy: Dariusz Hidalgo, DOService Date: 09/05/19 Fam Phy:Interpreting Phy: Zion Bethea Admit Phy: Ordering Phy: Judy Grover, cc: ~ XR abdomen 2V w PA chest HISTORY: 73 years-old Male n/v acute nausea and vomiting with recent fall COMPARISON: Chest radiograph 05/15/2019, CT abdomen and pelvis 10/18/2018 TECHNIQUE: PA view of the chest with erect and supine views of the abdomen FINDINGS: Nodular opacities overlie the bilateral lung bases suggestive of probable nipple shadows. Cardiomediastinal and hilar silhouettes are within normal limits. No pneumothorax, pleural effusion, overt pulmonary edema or airspace consolidation typical for pneumonia. Degenerative changes of the shoulders and spine. No pneumatosis or pneumoperitoneum. 4 mm calculus of the interpolar right kidney. No definite ureteral calculi. Gas pattern is nonobstructive. Demineralized appearance the bones with degenerative changes of the spine, pelvis and hips. No acute displaced rib fracture identified. IMPRESSION: 1. No acute processes of the chest. 2. Nodular opacities overlying the bilateral lung bases are suggestive of probable nipple shadows. This could be confirmed with follow-up radiograph with nipple markers. 3. Nonobstructive bowel gas pattern. 4. Right nephrolithiasis. ACT 112: Negative or not required by law. The above report was generated using voice recognition software. It may contain grammatical, syntax or spelling errors. Electronically signed by: Alvaro Bethea M.D. 09/05/2019 8:40 PM Dictated: 09/05/192036 Transcribed: 09/05/192036 Code Status & VTE Plan Code Status Full code VTE Prophylaxis Plan VTE Prophylaxis will be ordered: Yes PG Care Time/CCT Total # of Minutes Spent Total Time Spent with Patient: Total time spent is greater than 50% in coordination of care (as documented) at patient's floor/unit and/or counseling patient: Coding Level of Care Code 28257 OBS Care - Level 3 Diagnoses Dizziness R42 Vomiting R11.10 Dehydration E86.0 Hypertension I10 Hypertension type: essential hypertension Hyperlipidemia E78.5 Myelodysplastic syndrome D46.9 Vertebrobasilar artery insufficiency G45.0 Restless legs syndrome G25.81 Diabetes mellitus, type II E11.9 Hypothyroidism E03.9 Benign prostatic hyperplasia N40.0 (1) Hypertension Hypertension type: essential hypertension Qualified Code(s): I10 - Essential (primary) hypertension
[2019-09-05] MEDS: NSS + 20MEQ KCL 20 MEQ/1,000 ML BAG IV SCH (23:28)
[2019-09-06] MEDS: LEVOTHYROXINE SODIUM 112 MCG TABLET PO SCH (05:14)
[2019-09-06 06:22] LABS: INR 2.1 (0.9-1.1); Prothrombin Time 21.4 Seconds (9.0-12.0)
[2019-09-06] MEDS: FINASTERIDE 5 MG TAB PO SCH (08:12)
[2019-09-06] MEDS: ATORVASTATIN 20 MG TAB PO SCH (08:12)
[2019-09-06] MEDS: allopurinoL 100 MG TAB PO SCH (08:12)
[2019-09-06] MEDS: CEROVITE ADV FORMULA TAB PO SCH (08:12)
[2019-09-06] MEDS: NSS + 20MEQ KCL 20 MEQ/1,000 ML BAG IV SCH ×2 (10:08→19:02)
[2019-09-06] MEDS ORDERED: CARBOHYDRATES FOR HYPOGLYCEMIA PO PRN (11:00)
[2019-09-06] MEDS ORDERED: DEXTROSE 50% 50 ML SYRINGE IV PRN (11:00)
[2019-09-06] MEDS ORDERED: GLUCOSE 40% GEL 15 GM TUBE PO PRN (11:00)
[2019-09-06] MEDS ORDERED: GLUCOSE 10 TABS/TUBE PO PRN (11:00)
[2019-09-06] MEDS ORDERED: GLUCAGON FOR INJ 1 MG VIAL IM PRN (11:00)
[2019-09-06] MEDS ORDERED: MECLIZINE HCL 25 MG TAB PO PRN (11:30)
[2019-09-06] MEDS ORDERED: INSULIN ASPART 100 UNITS/ML 3 ML PEN SC SCH (11:30)
[2019-09-06] MEDS: INSULIN ASPART 100 UNITS/ML 3 ML PEN SC SCH ×3 (12:33→20:45)
--- NOTE | 2019-09-06 12:41 | Family Medicine Progress Note ---
Date of Service September 06, 2019 Assessment & Plan (1) Vomiting: (2) Dizziness: Mr. Mcknight is a 73 year old male with history significant for hypertension, DM, BPH, MDS and RLS admitted with dizziness and vomiting. 1) Dizziness and vomiting: Admitted under OBS. The patient presents to the emergency department with 3 weeks of progressively worsening dizziness with dehydration, and then had vomiting episode while in the ED. Suspect there is a peripheral etiology for his dizziness--likely BPPV. Less likely to be due to symptomatic vertebrobasilar artery insufficiency as VBI provocative maneuvers are unremarkable MRI brain was unremarkable for acute event Chest x-ray and KUB did not show any cause. Suspect that this may be related to BPPV. Will try meclizine and zofran for symptoms prior to discharge. He will need to follow up with Dr. Castaneda or ENT 2) Vertebrobasilar artery insufficiency - see above 3) Hypertension, Hyperlipidemia - continue home xx and atorvastatin 20mg 4) Diabetes mellitus, type II--well controlled holding home metformin and glimepiride; recent A1C 6.1 capillary glucose checks AC and HS with sliding scale coverage 5) Myelodysplastic syndrome CBC relatively unchanged from baseline 6) Hypothyroidism Continue levothyroxine 112mcg 7) BPH Continue home tamsulosin and finasteride FEN: full liquid, carb consistent DVT prophylaxis: chronic anticoagulation with coumadin, SCDs CODE status: FULL Dispo: likely discharge home tomorrow (3) Hypertension: Present on Admission?: Yes (4) Dehydration: (5) Vertebrobasilar artery insufficiency: (6) Restless legs syndrome: (7) Hyperlipidemia: (8) Myelodysplastic syndrome: (9) Diabetes mellitus, type II: (10) Obstructive sleep apnea: (11) Hypothyroidism: (12) Benign prostatic hyperplasia: Admission and Anticipated Discharge Date Admission Date: September 05, 2019 Subjective Mr Mcknight is a very pleasant 73 year old male admitted under observation for dizziness and vomiting. He has a history of an episode of dizziness in the past for which he saw Dr. Castaneda (neurology) several years ago. The dizziness eventually resolved and had been getting progressively worse over the last few weeks. He felt unsteady on his feet and off balance. Denies any associated diaphoresis, chest pain, shortness of breath. The dizziness was worse with turning his head and changing positions. He is not sure if symptoms are worse turning to the left or the right. He had spoke with his PCP on the phone who advised him to be evaluated in the emergency department. The dizziness is much better since admission, but he admits he had an episode of dizziness last night when he reached backwards to find the cord for the light in the hospital room. Did not have any vomiting. Reports that the dizziness tends to self resolve within a few minutes. He does not remember a diagnosis of vertigo or BPPV in the past. Denies recent upper respiratory or viral symptoms preceding the dizziness. Denies any change in his hearing. Review of Systems Review of Systems: All systems reviewed & are unremarkable except as noted in HPI & below Physical Exam Constitutional: WD/WN, vitals as above well developed, well nourished and + well hydrated; no acute distress and not diaphoretic Eyes: PERRL, conjunctivae normal, anicteric sclerae normal visual simmons by confrontation, PERRL, normal accommodation, EOM intact bilaterally and reactive pupils EOM testing does not induce dizziness or nausea ENMT: external ear and nose normal, oropharynx normal Neck: normal visual inspection and trachea midline Respiratory: normal respiratory effort, lungs clear to auscultation normal respiratory effort; no respiratory distress Cardiovascular: RRR, no murmur, no edema Rate/Rhythm: regular rate and regular rhythm Gastrointestinal (Abdomen): normal bowel sounds, soft, nontender, no hepatosplenomegaly Skin: no rashes, warm and dry normal turgor Neurologic: PERRL, EOMI, accommodation nl, no face palsy, no dysarthria CN's II-XI intact bilaterally and + abnormal Arleth Hallpike Psychiatric: A+Ox3, euthymic affect Results & Data ([facility]) Vital Signs (Past 12 Hours) Vital Signs Temp Pulse Pulse Resp BP Pulse Ox 09/06/19 11:18 36.9 C 70 18 159/84 H 94 09/06/19 07:43 68 09/06/19 07:23 36.9 C 82 20 135/84 94 09/06/19 04:00 36.6 C 80 18 133/76 93 09/06/19 03:30 63 20 91 PG Care Time/CCT Total # of Minutes Spent Total Time Spent with Patient: Total time spent is greater than 50% in coordination of care (as documented) at patient's floor/unit and/or counseling patient: Coding Level of Care Code 13401 Subseq Obs Care Lvl 3 Diagnoses Vomiting R11.10 Dizziness R42 Hypertension I10 Hypertension type: essential hypertension Dehydration E86.0 Vertebrobasilar artery insufficiency G45.0 Restless legs syndrome G25.81 Hyperlipidemia E78.5 Myelodysplastic syndrome D46.9 Diabetes mellitus, type II E11.9 Obstructive sleep apnea G47.33 Hypothyroidism E03.9 Benign prostatic hyperplasia N40.0 (1) Hypertension Hypertension type: essential hypertension Qualified Code(s): I10 - Essential (primary) hypertension
[2019-09-06] MEDS ORDERED: WARFARIN SOD 4 MG TAB PO SCH (16:00)
[2019-09-06] MEDS ORDERED: CHOLECALCIFEROL 1,000 UNITS 25 MCG TAB PO SCH (16:30)
[2019-09-06] MEDS ORDERED: CITALOPRAM 20 MG TAB PO SCH (21:00)
[2019-09-06] MEDS ORDERED: AMLODIPINE BESYLATE 5 MG TAB PO SCH (21:00)
[2019-09-06] MEDS ORDERED: lisinopriL 20 MG TAB PO SCH (21:00)
[2019-09-07] MEDS: NSS + 20MEQ KCL 20 MEQ/1,000 ML BAG IV SCH (05:06)
[2019-09-07 06:12] LABS: Basophils # (auto) 0.01 K/uL (0-0.2); Basophils % (auto) 0.2 %; Eosinophils # (auto) 0.14 K/uL (0-0.5); Hematocrit (blood only) 37.1 % (42-52); Hemoglobin 12.1 g/dL (14.0-18.0); Immature Granulocytes # (auto) 0.01 K/uL (0.00-0.02); Immature Granulocytes % (auto) 0.2 %; Lymphocytes % (auto) 25.3 %; Mean Corpuscular Hemoglobin 27.4 pg (25-34); Mean Corpuscular Hgb Conc 32.6 g/dL (32-36); Mean Corpuscular Volume 83.9 fL (80-100); Mean Platelet Volume 10.2 fL (7.4-10.4); Monocytes % (auto) 8.4 %; Neutrophils # (auto) 2.98 K/uL (1.4-6.5); Neutrophils % (auto) 62.9 %; Platelet Count 108 K/uL (130-400); RDW Coefficient of Variation 14.2 % (11.5-14.5); RDW Standard Deviation 43.8 fL (36.4-46.3); Red Blood Count 4.42 M/uL (4.7-6.1); White Blood Count 4.74 K/uL (4.8-10.8)
[2019-09-07 06:19] LABS: INR 2.3 (0.9-1.1); Prothrombin Time 23.4 Seconds (9.0-12.0)
[2019-09-07] MEDS: LEVOTHYROXINE SODIUM 112 MCG TABLET PO SCH (06:35)
[2019-09-07] MEDS: FINASTERIDE 5 MG TAB PO SCH (08:28)
[2019-09-07] MEDS: allopurinoL 100 MG TAB PO SCH (08:28)
[2019-09-07] MEDS: ATORVASTATIN 20 MG TAB PO SCH (08:28)
[2019-09-07] MEDS: INSULIN ASPART 100 UNITS/ML 3 ML PEN SC SCH (08:28)
[2019-09-07] MEDS: CEROVITE ADV FORMULA TAB PO SCH (08:28)
[2019-09-10] MEDS ORDERED: WARFARIN SOD 2 MG TAB PO SCH (16:00)
--- NOTE | 2019-09-12 09:19 | Discharge Summary ---
Date of Service September 07, 2019 Admission HPI Per Admitting Provider The patient is a 73-year-old male with a past medical history including sacroiliitis, urothelial carcinoma the bladder, chronic low back pain, vertebrobasilar insufficiency, restless leg syndrome, lumbar radiculopathy, hyperlipidemia, gout, myelodysplastic syndrome, diabetes mellitus, hypertension, hypothyroidism, BPH, obstructive sleep apnea on CPAP and lumbar spinal stenosis. He presents to the emergency department with worsening dizziness over the past 3 weeks, and had an episode of vomiting uncontrollably while in the ED. He has had no recent travels or sick exposures. He has no questionable food intakes. Admission Exam Per Admitting Provider The patient is awake, alert and oriented 3, well developed and well nourished, normocephalic and atraumatic, lying in bed and in no acute distress. HEENT--PERRL, EOMI, mucous membranes and oropharynx mildly dry. Neck--supple. No JVD. No bruits. Thyroid normal, trachea midline, no darell nopathy. Heart--normal S1 and S2. No murmurs, rubs or gallops. Lungs--clear bilaterally, no respiratory distress, no accessory muscle use. Abdomen--normal bowel sounds and soft. Nontender. Mildly distended and tympanitic. Extremities--no cyanosis or clubbing. No edema. Dermatologic--normal skin turgor, normal color, no abnormal lymph nodes, no rash. Neurologic--cranial nerves II through XII grossly intact. Rheumatologic--normal range of motion. Psychiatric--normal affect. Principal Diagnosis Vertigo, intractable vomiting Discharge Exam Constitutional WD/WN, vitals as above well developed, well nourished and + well hydrated; no acute distress and not diaphoretic Eyes PERRL, conjunctivae normal, anicteric sclerae normal visual simmons by confrontation, PERRL, normal accommodation, EOM intact bilaterally and reactive pupils ENMT external ear and nose normal, oropharynx normal Neck normal visual inspection and trachea midline Respiratory normal respiratory effort, lungs clear to auscultation normal respiratory effort; no respiratory distress Cardiovascular RRR, no murmur, no edema Rate/Rhythm: regular rate and regular rhythm Gastrointestinal (Abdomen) normal bowel sounds, soft, nontender, no hepatosplenomegaly Skin no rashes, warm and dry normal turgor Neurologic PERRL, EOMI, accommodation nl, no face palsy, no dysarthria CN's II-XI intact bilaterally [place] deferred Psychiatric A+Ox3, euthymic affect Discharge Data Allergies Allergy/AdvReac Type Severity Reaction Status Date / Time etodolac Allergy Intermediate HAND Verified 09/11/19 13:48 SWELLING nickel Allergy Mild Rash Verified 09/11/19 13:48 duloxetine [From Cymbalta] AdvReac Intermediate DID NOT Verified 09/11/19 13:48 WORK INTENDED Consultations 09/05/19 20:06 ED Decision to Admit Stat 09/05/19 22:31 Consult Case Management - Discharge Planning Routine Ordered Studies 09/05/19 16:04 MR brain wo con Stat Nail Welter localizer images demonstrate no gross abnormality. Midline structures including the corpus callosum, brainstem, optic chiasm, pituitary and pineal glands appear unremarkable on the sagittal T1 series. No evidence of cerebellar tonsillar herniation. There is no restricted diffusion to suggest acute or subacute infarction. No acute intracranial hemorrhage, midline shift, abnormal extra-axial collections, hydrocephalus or intracranial mass. Age-related involutional changes. Moderate patchy T2/FLAIR hyperintensities throughout the white matter are suggestive of of chronic microvascular ischemic changes. The major flow voids appear patent. Trace left mastoid effusion. Mild mucosal thickening of the ethmoid, maxillary and sphenoid sinuses. Hypoplastic frontal sinuses. The skull, soft tissues and orbits appear unremarkable. IMPRESSION: No acute intracranial abnormality, specifically there is no evidence of acute or subacute infarct. XR Chest/Abdomen TECHNIQUE: PA view of the chest with erect and supine views of the abdomen FINDINGS: Nodular opacities overlie the bilateral lung bases suggestive of probable nipple shadows. Cardiomediastinal and hilar silhouettes are within normal limits. No pneumothorax, pleural effusion, overt pulmonary edema or airspace consolidation typical for pneumonia. Degenerative changes of the shoulders and spine. No pneumatosis or pneumoperitoneum. 4 mm calculus of the interpolar right kidney. No definite ureteral calculi. Gas pattern is nonobstructive. Demineralized appearance the bones with degenerative changes of the spine, pelvis and hips. No acute displaced rib fracture identified. IMPRESSION: 1. No acute processes of the chest. 2. Nodular opacities overlying the bilateral lung bases are suggestive of probable nipple shadows. This could be confirmed with follow-up radiograph with nipple markers. 3. Nonobstructive bowel gas pattern. 4. Right nephrolithiasis. Hospital Course (1) Vomiting: (2) Dizziness: Mr. Mcknight is a 73 year old male with history significant for hypertension, DM, BPH, MDS and RLS admitted with dizziness and vomiting. 1) Dizziness and vomiting: Admitted under OBS. The patient presents to the emergency department with 3 weeks of progressively worsening dizziness with dehydration, and then had vomiting episode while in the ED. Suspect there is a peripheral etiology for his dizziness--likely BPPV. Less likely to be due to symptomatic vertebrobasilar artery insufficiency as VBI provocative maneuvers are unremarkable. Likely this is related to BPPV. Symptoms improved with meclizine and zofran. Did no have any dizziness or nausea/vomiting overnight or the morning of discharge. MRI brain was unremarkable for acute event Chest x-ray and KUB did not show any cause. He will need to follow up with Dr. Castaneda or ENT 2) Vertebrobasilar artery insufficiency - see above 3) Hypertension, Hyperlipidemia - continue home xx and atorvastatin 20mg 4) Diabetes mellitus, type II--well controlled holding home metformin and glimepiride; recent A1C 6.1 capillary glucose checks AC and HS with sliding scale coverage 5) Myelodysplastic syndrome CBC relatively unchanged from baseline 6) Hypothyroidism Continue levothyroxine 112mcg 7) BPH Continue home tamsulosin and finasteride FEN: full liquid, carb consistent DVT prophylaxis: chronic anticoagulation with coumadin, SCDs CODE status: FULL Dispo: Discharge home today. Meclizine and zofran prescriptions were sent to his pharmacy from the emergency department. (3) Hypertension: (4) Dehydration: (5) Vertebrobasilar artery insufficiency: (6) Restless legs syndrome: (7) Hyperlipidemia: (8) Myelodysplastic syndrome: (9) Diabetes mellitus, type II: (10) Obstructive sleep apnea: (11) Hypothyroidism: (12) Benign prostatic hyperplasia: Total Time Total Time Spent Total Time Spent (In Minutes): 35 Total Time Includes: Examination of the Patient, Discharge Planning and Medication Reconciliation Discharge Plan Discharge Items Patient Disposition: Home - Self-Care Reason For Visit: INTRACTABLE NAUSEA AND VOMITING Discharge Diagnosis: Vertigo Condition on Discharge: Good Activity: Resume your previous activity Bathing: No limitations Exercise/Sports: As tolerated Driving/Machine Use: No driving while taking meclizine Weightbearing: Full weightbearing Non-emergency contact: Primary Care Provider Call non-emergency contact if: you have any medication questions and your symptoms worsen Follow-up/Referrals: Dariusz Castaneda MD [Physician] - (Please call to make an appointment. Let the office know that you were in the hospital. ) Dariusz Hidalgo, [Primary Care Provider] - (please call your pcp to discuss need for follow up appt. [phone]) Diet: Carb Consistent or DM2 and Heart Healthy Addtl Attending Provider Instructions: You were admitted to the hospital with dizziness and vomiting. Imaging of your brain did not show any acute concerns such as a stroke or blocked blood vessel. You were likely having dizziness and vomiting due to a condition called vertigo which is caused by an issue with the inner ear. The inner ear helps us with balance. You are being prescribed meclizine and zofran. The meclizine can be used as needed for dizziness, but may cause you to be drowsy. Please do not drive or operate machinery if you take this medication. The zofran can be used as needed for nausea. Both of these medications were sent to your pharmacy by the emergency room provider. Pending Studies at Discharge: No Stand-Alone Forms: My [facility] [employer], Smoking Cessation Medications and DC Order Prescriptions: New meclizine 25 mg tablet 25 mg PO TID PRN (Reason: dizziness) Qty: 20 RF: 0 ondansetron 4 mg tablet,disintegrating 4 mg PO Q8H PRN (Reason: nausea and vomiting) Qty: 14 RF: 0 Continued valacyclovir [Valtrex] 1 gram tablet 2,000 mg PO BID PRN (Reason: cold sores) RF: 0 vitamins A,C,B-inbv-vihhox [PreserVision AREDS] [id number] yjfx-to-ywne capsule 1 cap PO QAM RF: 0 metformin 1,000 mg tablet 1,000 mg PO BID Qty: 180 RF: 3 oxycodone-acetaminophen [Percocet] 5-325 mg tablet 1 tab PO Q6H PRN (Reason: pain) Qty: 20 RF: 0 atorvastatin [Lipitor] 20 mg tablet 20 mg PO QAM Qty: 30 RF: 3 amlodipine 5 mg tablet 5 mg PO HS Qty: 90 RF: 0 glimepiride 1 mg tablet 1 mg PO QAM Qty: 90 RF: 3 levothyroxine [Synthroid] 112 mcg tablet 112 mcg PO QAM Qty: 90 RF: 3 (DME) lancets [OneTouch Delica Lancets] 33 gauge misc See Dose Instructions .ROUTE .MEDSUPPLY Qty: 100 RF: 0 finasteride 5 mg tablet 5 mg PO QAM Qty: 30 RF: 0 (DME) OneTouch Ultra Blue Test Strip strip See Dose Instructions .ROUTE .MEDSUPPLY Qty: 10 RF: 0 warfarin [Coumadin] 4 mg tablet 4 mg PO UD RF: 0 citalopram [Celexa] 20 mg tablet 20 mg PO HS RF: 0 cholecalciferol (vitamin D3) [Vitamin D3] 50 mcg (2,000 unit) Capsule 2,000 unit PO QDD RF: 0 cyanocobalamin (vitamin B-12) 2,000 mcg Tablet 2,000 mcg PO QAM RF: 0 lisinopril 20 mg tablet 20 mg PO HS RF: 0 tamsulosin [Flomax] 0.4 mg capsule 0.4 mg PO QAM RF: 0 allopurinol 100 mg tablet 100 mg PO QAM RF: 0 Discharge Orders: Discharge Order (Routine); Ordered 09/07/19 Ordered By: Nataliya Maldonado/Matheus Patient Handouts: Hyperglycemia, Hypoglycemia, Dizziness Vertigo Inner Ear Admission Data Admit Date/Time: 09/05/19 21:43 Attending Provider: Nataliya Reyes Admit Provider: Lele Wesley Primary Care Provider: Dariusz Hidalgo Other Providers: Lele Wesley Other Interventions: Discharge Summary Assessment (RN) Last Done: 09/07/19 08:36 DC Date/Time DO NOT enter until pt leaves facility: 09/07/19 09:34 Coding Level of Care Code D/C Day Management >30 mins Diagnoses Vomiting R11.10 Dizziness R42 Hypertension I10 Hypertension type: essential hypertension Dehydration E86.0 Vertebrobasilar artery insufficiency G45.0 Restless legs syndrome G25.81 Hyperlipidemia E78.5 Myelodysplastic syndrome D46.9 Diabetes mellitus, type II E11.9 Obstructive sleep apnea G47.33 Hypothyroidism E03.9 Benign prostatic hyperplasia N40.0
== END 2019-09-07 09:34 | disposition home or self-care (01) ==
LOC: 2N 12:51 → ED 12:51 → SUATTDRO 21:43 → 2N 22:02
DX: E86.0 Dehydration; Z79.01 Long term (current) use of anticoagulants; D46.9 Myelodysplastic syndrome, unspecified; Z82.49 Family history of ischemic heart disease and other diseases of the circulatory system; I10 Essential (primary) hypertension; R11.10 Vomiting, unspecified; E53.8 Deficiency of other specified B group vitamins; Z83.3 Family history of diabetes mellitus; G45.0 Vertebro-basilar artery syndrome; E03.9 Hypothyroidism, unspecified; M48.061 Spinal stenosis, lumbar region without neurogenic claudication; Z79.899 Other long term (current) drug therapy; Z86.718 Personal history of other venous thrombosis and embolism; N40.0 Benign prostatic hyperplasia without lower urinary tract symptoms; R91.1 Solitary pulmonary nodule; H35.30 Unspecified macular degeneration; E78.5 Hyperlipidemia, unspecified; G25.81 Restless legs syndrome; E11.9 Type 2 diabetes mellitus without complications; L40.9 Psoriasis, unspecified; D69.6 Thrombocytopenia, unspecified; Z79.84 Long term (current) use of oral hypoglycemic drugs; G47.33 Obstructive sleep apnea (adult) (pediatric); E55.9 Vitamin D deficiency, unspecified; M54.5 Low back pain; M10.9 Gout, unspecified